=== PATIENT | female | born 1965 | race Caucasian/White ===

== ENCOUNTER 2022-10-18 14:24 | Emergency (ER) | payer SELFPAY ==
[~2022-10-18] VITALS: Ht 157.5 cm; Wt 90.9 kg
[2022-10-18] MEDS ORDERED: ONDANSETRON HCL 4 MG/2 ML VIAL IV ONE (14:45)
[2022-10-18] MEDS ORDERED: MORPHINE SULFATE 4 MG/ML SYR/VIAL IV ONE (14:45)
[2022-10-18] MEDS ORDERED: PANTOPRAZOLE 40 MG/10 ML VIAL INJ IV ONE (14:45)
[2022-10-18 15:39] VITALS: BP 169/130
[2022-10-18] MEDS: SODIUM CHLORIDE 0.9% 1,000 ML IVB ONE ×2 (16:04→19:05)
[2022-10-18 17:56] LABS: Urine Bacteria NONE SEEN /hpf (None Seen); Urine Blood Negative /uL (Negative); Urine Mucus FEW (None Seen); Urine Specific Gravity 1.027 (1.001-1.035); Urine WBC 4 /hpf (0 - 5)
[2022-10-18] MEDS ORDERED: ONDANSETRON ODT 4 MG TAB PO ONE (18:45)
[2022-10-18 19:10] LABS: Basophils # (auto) 0 10 ^3/uL (0-0.2); Basophils % (auto) 0.3 % (0.0-2.0); Eosinophils # (auto) 0 10 ^3/uL (0-0.8); Eosinophils % (auto) 0.1 % (0.0-7.0); Hematocrit 52.6 % (36.0-46.0); Hemoglobin 17.3 g/dL (12.2-16.2); Lymphocytes # (auto) 1.8 10 ^3/uL (0.4-5.4); Lymphocytes % (auto) 11.6 % (10.0-50.0); Mean Corpuscular Hemoglobin 28.8 pg (28.0-32.0); Mean Corpuscular Hgb Conc. 32.9 g/dL (32.0-36.0); Mean Corpuscular Volume 87.5 fL (80.0-100.0); Monocytes # (auto) 0.9 10 ^3/uL (0-1.3); Monocytes % (auto) 5.7 % (0.0-12.0); Neutrophils # (auto) 13.1 10 ^3/uL (1.6-8.6); Neutrophils % (auto) 82.3 % (37.0-80.0); Nucleated Red Blood Cells % 0.1 %; Red Blood Cells 6.02 10^6/uL (4.0-5.20); White Blood Cell 15.9 10^3/uL (4.4-10.8)
[2022-10-18 19:26] LABS: Anion Gap 8 (5-15); Calcium 9.5 mg/dL (8.5-10.1); Carbon Dioxide 28 mmol/L (21-32); Chloride 102 mmol/L (98-107); Glucose 138 mg/dL (74-106); Lipase 52 U/L (73-393); Potassium 3.8 mmol/L (3.5-5.1); Sodium 138 mmol/L (136-145)
[2022-10-18 19:32] LABS: Alanine Aminotransferase 39 U/L (13-56); Alkaline Phosphatase 101 U/L (45-117); Aspartate Aminotransferase 28 U/L (15-37); Bilirubin, Total 1.3 mg/dL (0.2-1.0); Blood Urea Nitrogen 10 mg/dL (7-18); GFR African American 99 mL/min; GFR Non-African American 82 mL/min; Total Protein 8.3 g/dL (6.4-8.2)
[2022-10-19] MEDS ORDERED: NITR-87 PO (01:15)
== END 2022-10-19 03:40 | disposition left against medical advice (07) ==
LOC: ER 14:24
DX: R10.84 Generalized abdominal pain (principal); K21.9 Gastro-esophageal reflux disease without esophagitis; F17.210 Nicotine dependence, cigarettes, uncomplicated; F12.90 Cannabis use, unspecified, uncomplicated; Z88.5 Allergy status to narcotic agent; Z88.2 Allergy status to sulfonamides; Z90.49 Acquired absence of other specified parts of digestive tract; Z98.890 Other specified postprocedural states
CPT/HCPCS: 36415; 74176; 80053; 81001; 83690; 96361; 96374; 96375; 99285; C9113; J2405; J7030; Q0162

== ENCOUNTER 2024-02-13 23:23 | Emergency (ER) | payer OTHER ==
[~2024-02-13] VITALS: Ht 157.5 cm; Wt 150.0 kg
[~2024-02-13 23:23] MED LIST: NITR-87 PO
[2024-02-13 23:32] VITALS: BP 151/111
[2024-02-14 00:53] VITALS: PULSE 79; RESP 11; O2SAT 94
[2024-02-14 01:13] LABS: Basophils # (auto) 0 10 ^3/uL (0-0.2); Basophils % (auto) 0.5 % (0.0-2.0); Eosinophils # (auto) 0.1 10 ^3/uL (0-0.8); Eosinophils % (auto) 0.8 % (0.0-7.0); Hematocrit 39.2 % (36.0-46.0); Hemoglobin 12.9 g/dL (12.2-16.2); Lymphocytes # (auto) 1.5 10 ^3/uL (0.4-5.4); Lymphocytes % (auto) 14.5 % (10.0-50.0); Mean Corpuscular Hemoglobin 27.3 pg (28.0-32.0); Mean Corpuscular Hgb Conc. 32.9 g/dL (32.0-36.0); Mean Corpuscular Volume 82.8 fL (80.0-100.0); Monocytes # (auto) 0.7 10 ^3/uL (0-1.3); Monocytes % (auto) 6.2 % (0.0-12.0); Neutrophils # (auto) 8.1 10 ^3/uL (1.6-8.6); Red Blood Cells 4.73 10^6/uL (4.0-5.20); Red Cell Distribution Width 14.3 % (11.8-14.3); White Blood Cell 10.4 10^3/uL (4.4-10.8)
[2024-02-14 01:23] LABS: Alanine Aminotransferase 13 U/L (7-40); Albumin 4.4 g/dL (3.2-4.8); Alkaline Phosphatase 87 U/L (46-116); Anion Gap 9 (5-15); Aspartate Aminotransferase 10 U/L (13-40); Blood Urea Nitrogen 9 mg/dL (9-23); Calcium 9.9 mg/dL (8.7-10.4); Carbon Dioxide 25 mmol/L (20-30); Chloride 105 mmol/L (98-107); Glucose 176 mg/dL (74-106); Lipase 31 U/L (12-53); Potassium 3.6 mmol/L (3.5-5.1); Sodium 139 mmol/L (136-145)
[2024-02-14 01:24] LABS: Bilirubin, Total 0.5 mg/dL (0.2-1.0); Total Protein 7.1 g/dL (5.7-8.2)
[2024-02-14] MEDS: LORazepam 2MG/ML-1ML VIAL IV ONE (01:49)
[2024-02-14] MEDS: LORazepam 2MG/ML-1ML VIAL IM ONE (02:04)
[2024-02-14] MEDS: KETOROLAC TROMETH 60MG/2ML VIAL IM ONE (02:15)
[2024-02-14 02:20] VITALS: PULSE 96
[2024-02-14] MEDS: MAALOX PLUS or MAALOX 30 ML PO ONE (03:47)
[2024-02-14] MEDS: LIDOCAINE VISCOUS 2% 15ML UD PO ONE (03:47)
[2024-02-14] MEDS: DONNATAL 5ml ORAL Elix (BELLADONNA ALK-PHENOBARB) PO ONE (03:47)
== END 2024-02-14 05:52 | disposition left against medical advice (07) ==
LOC: EDUNIT# 23:23 → ER 23:23 → EDBD 23:23 → ER 02-14 05:52
DX: R07.9 Chest pain, unspecified (principal); K21.9 Gastro-esophageal reflux disease without esophagitis; R10.9 Unspecified abdominal pain; R11.2 Nausea with vomiting, unspecified; R19.7 Diarrhea, unspecified; I10 Essential (primary) hypertension; F12.10 Cannabis abuse, uncomplicated; F15.10 Other stimulant abuse, uncomplicated; F17.210 Nicotine dependence, cigarettes, uncomplicated; Z90.49 Acquired absence of other specified parts of digestive tract; Z85.9 Personal history of malignant neoplasm, unspecified; Z88.6 Allergy status to analgesic agent
CPT/HCPCS: 36415; 80053; 83690; 83880; 84484; 85025; 93005; 96372; 99284; J1885; J2060

== ENCOUNTER 2024-08-29 05:09 | Inpatient (IN) | payer OTHER ==
[2024-08-29] VITALS (16 sets, daily range): BP systolic 125–157; BP diastolic 78–105; PULSE 74–122; RESP 16–29; TEMP 97.6–98.3; O2SAT 89–100
[~2024-08-29] VITALS: Ht 160 cm; Wt 89.5 kg
[2024-08-29] MEDS: MIDAZOLAM HCL 2MG/2ML 2ml VIAL (1mg/ml) ONE (05:51)
[2024-08-29] MEDS: fentaNYL CITRATE 100 MCG/2 ML VL ONE (05:51)
[2024-08-29] MEDS: ANGIOMAX 250 MG VIAL IV ONE (05:51)
[2024-08-29] MEDS: SODIUM CHL 0.9% 0 ML ONE (05:52)
[2024-08-29] MEDS: IODIXANOL 320MG/ML 100ML BTL IV ONE (05:52)
[2024-08-29] MEDS: LIDOCAINE 2%HCL (LOCAL ANESTH.) INJ 20ML MDV ONE (05:52)
[2024-08-29] MEDS ORDERED: SODIUM CHLORIDE 0.9% 1,000 ML IV ONE (06:00)
[2024-08-29] MEDS ORDERED: MORPHINE SULFATE INJ 2 MG/ml SYRG IV PRN (06:00)
[2024-08-29] MEDS: PIPERACILLIN-TAZOB 3.375GM 100 ML IV SCH (06:00)
[2024-08-29] MEDS ORDERED: ONDANSETRON HCL 4 MG/2 ML VIAL IV PRN (06:00)
--- NOTE | 2024-08-29 06:05 | DVH ---
CHEST RADIOGRAPH Indication: STEMI Technique: Single frontal view of the chest was obtained Comparison: None FINDINGS: Lines and Tubes: None Lungs: No focal consolidation. Pleura: No effusion. No pneumothorax. Cardiomediastinal contours: Unremarkable Bones: No acute osseous abnormality. IMPRESSION: 1. No acute cardiopulmonary disease.
[2024-08-29 06:08] LABS: Red Cell Distribution Width 14.4 % (11.8-14.3)
[2024-08-29 06:13] LABS: Hematocrit 49.1 % (36.0-46.0); Hemoglobin 16.7 g/dL (12.2-16.2); Mean Corpuscular Hemoglobin 28.5 pg (28.0-32.0); Mean Corpuscular Hgb Conc. 34.1 g/dL (32.0-36.0); Mean Corpuscular Volume 83.7 fL (80.0-100.0); Platelet Count (auto) 413 10^3/uL (140-450); Red Blood Cells 5.87 10^6/uL (4.0-5.20)
[2024-08-29 06:17] LABS: Alanine Aminotransferase 14 U/L (7-40); Alkaline Phosphatase 94 U/L (46-116); Calcium 9.2 mg/dL (8.7-10.4); Triglycerides 95 mg/dL (< 150)
[2024-08-29 06:18] LABS: Albumin 4.5 g/dL (3.2-4.8); Anion Gap 15 (5-15); BUN/Creatinine Ratio 22.7 (10.0-20.0); Cholesterol 153 mg/dL (< 200); LDL Cholesterol 67 mg/dL (< 100); Potassium 3.7 mmol/L (3.5-5.1); Total Protein 6.8 g/dL (5.7-8.2)
--- NOTE | 2024-08-29 06:21 | DVHHPRES ---
History of Present Illness Resident Creating Document: CAROLEBELLCONSTANCE RESIDENT History of Present Illness Person is 59-year-old female with past medical history of hypertension and diabetes mellitus type 2 transferred from [facility] for diagnosed STEMI evaluation and incarcerated umbilical hernia. Patient was transported via EMS, cardiology consultation was done. Patient has been taken to lab nurse for evaluation of coronary arteries given significant diffuse ST elevation and EKG. Patient was admitted to ICU for further care. Surgery consultation has been done for evaluation of incarcerated umbilical hernia. Medical record from [facility] [place] [address], CT abdomen pelvis showed a large left umbilical hernia defect containing loops of small bowel, findings suspicious for early or developing small bowel obstruction secondary to incarceration. Patient admitted started on antibiotics, IV fluid, NG tube with intermittent suction, laboratory has been pending. Patient will be admitted to ICU for further care. Expecting more than 2 days of hospitalization. Past Medical History Hypertension, diabetes mellitus type 2 Past Surgical History ?Exploratory abdominal/unknown surgery. Family History: None Past Social History Past social history not able to obtain given patient emergently transferred to lab nurse. Review of Systems Review of Systems Patient is seen and examined at the bedside Alert and oriented to time, place and person Patient was complaining of abdominal pain, SOB. Allergies: Coded Allergies: Sulfa Antibiotics (Verified Allergy, Severe, 10/18/22) Morphine (Verified Allergy, Unknown, 04/29/15) Uncoded Allergies: OPIODS (Allergy, Unknown, 04/29/15) Medications Current Medications Medications Dose Ordered Sig/Wayne Route Start Time Stop Time Status Last Admin Dose Admin Nitroglycerin 0.4 mg Q5MINP PRN SL 08/29/24 06:00 UNV Morphine Sulfate 2 mg Q30M PRN IV 08/29/24 06:00 UNV Piperacillin Sod/ Tazobactam Sod 100 ml @ 25 mls/hr Q8HR IV 08/29/24 06:00 UNV Ondansetron HCl 4 mg Q4HPRN PRN IV 08/29/24 06:00 UNV Pantoprazole Sodium 40 mg DAILY IV 08/29/24 10:00 UNV Exam Vital Signs Vital Signs Date Time Temp Pulse Resp B/P (MAP) Pulse Ox O2 Delivery O2 Flow Rate FiO2 08/29/24 05:17 98.6 115 24 137/97 (110) 98 Exam Physical Examination Patient was drowsy in bed with GCS 13 . Gen - no pallor, no icterus, no cyanosis, no clubbing, no LAD, no edema . Skin - Patients skin is warm and dry.. HEENT - normocephalic, atraumatic, dry mucous membranes. Neck - full ROM, no LAD, no JVD. Pulmonary - B/L vesicular breath sounds. no crackles , no wheezing, no stridor. cardiovascular - normal S1,S2 heard. no murmurs heard. peripheral pulses normal radial 2+, pedal 2+. capillary refill normal <2 secs. GI - soft abdomen with mild tenderness to palpation in the periumbilical region . no hepatospleenomegaly. bowel sounds hypoactive Neurological - Patient is A/O X 3 . Bilateral upper extremity strength 3/5, bilateral lower extremity strength 3/5, no facial droop, normal speech, no tremor, no sensory deficiets. Labs/Xrays Labs Test 08/29/24 05:30 Range/Units Assessment/Plan Assessment/Plan Assessment #Sepsis likely due to incarcerated umbilical hernia #STEMI versus acute pericarditis #Acute on chronic respiratory failure #Incarcerated umbilical hernia #JONG on CKD likely hemodynamically mediated #History of diabetes mellitus type 2 #History of hypertension Plan Oxygen via nasal cannula IV fluids at 100 mL/hour Zosyn 3.375 g q.8 hours IV Patient taken to lab nurse Echo pending Blood cultures pending NPO NG tube with intermittent suction Surgery consult Cardiology consult PUD prophylaxis: Pantoprazole 40 mg IV Patient has been transferred from [facility], for STEMI and catheter umbilical hernia. Patient sent to lab nurse for evaluation of coronary arteries. Stat surgical consultation has been done for umbilical hernia. Meanwhile patient will be started IV fluid, NG tube with intermittent suction, IV antibiotic, labs including blood cultures. Given patient's condition we are expecting patient's hospital stay gradually than 2 days. Goals of care discussed with the patient for over 23 minutes. Code status: Full code Plan discussed with Dr. Hawk Plan discussed with: Patient, Other (Dr. Quinteros) My Orders Orders - DAVION LAM RESIDENT Procedure Category Date Status Time Admit ADMIT 08/29/24 Transmitted 05:51 Nitroglycerin PHA 08/29/24 Logged Sublingual (Ntrostat 06:00 Morphine Sulfate PHA 08/29/24 Logged Injection 06:00 Oxygen By Nasal RT 08/29/24 Transmitted Cannula 05:51 Stat Ekg For Chest ROZ 08/29/24 In Process Pain 05:51 [employer] For ROZ 08/29/24 In Process 24 Hours 05:51 Notify Of Changes [facility] 08/29/24 In Process From Base 05:51 Rhythm Strips Once [facility] 08/29/24 In Process Every Shift 05:51 Npo (Nothing By DIET 08/29/24 Transmitted Mouth) Diet Breakfast Ng/Orogastric Tube To ROZ 08/29/24 In Process LIS 05:51 Blood Culture CHARLEEN 08/29/24 Logged 05:51 Urinalysis LAB 08/29/24 Logged 05:51 Drug Screen LAB 08/29/24 Logged 05:51 Covid19 Antigen Lena LAB 08/29/24 Logged Rapid Influenza A&B LAB 08/29/24 Logged 05:51 Sodium Chloride 0.9% PHA 08/29/24 Logged 06:00 Piperacillin-Tazob PHA 08/29/24 Logged 3.375gm (Zosyn 3.375g 06:00 Ondansetron Hcl PHA 08/29/24 Logged (Zofran) 06:00 Pantoprazole PHA 08/29/24 Logged (Protonix) 10:00 PTPTT LAB 08/29/24 Logged 05:51 * Surgical Consult CONS 08/29/24 Transmitted Echo 2d Mode Cardiac US 08/29/24 Logged DOP 05:58 Date of Service: Aug 29, 2024 Billing Provider: SELMA HAWK MD Common Visit Codes: [id number] INP/OBS CARE (HIGH) DAVION LAM RESIDENT Aug 29, 2024 06:21 SELMA HAWK MD Aug 29, 2024 21:05
[2024-08-29 06:31] LABS: Aspartate Aminotransferase 46 U/L (13-40); Bilirubin, Total 1.6 mg/dL (0.2-1.0); Blood Urea Nitrogen 42 mg/dL (9-23); Carbon Dioxide 17 mmol/L (20-31); Chloride 97 mmol/L (98-107); Glucose 268 mg/dL (74-106); HDL Cholesterol 66 mg/dL (40-59); Magnesium 1.6 mg/dL (1.6-2.6); Sodium 129 mmol/L (136-145)
[2024-08-29 06:36] LABS: INR 1.18 (0.9-1.15); Partial Thromboplastin Time 32.2 SEC (24.5-34.5); Prothrombin Time 12.4 sec (9.3-11.8)
--- NOTE | 2024-08-29 06:36 | ECG ---
[facility] Test Date: 2024-08-29 Test Time: 05:11:48 Pat Name: KAREEN MACKENZIE Department: er Room: Cath ICU Gender: F Director Of Infection Control: derick : 1965 Requested By: RSI SNEED Order Number: [id number] Reading MD: Aron Akers Measurements Intervals [place] Rate: 118 P: 84 AK: 154 QRS: 70 QRSD: 94 T: 53 QT: 296 QTc: 415 Interpretive Statements Sinus tachycardia Atrial premature complex Anterolateral infarct, acute (LAD) ST elevation, consider inferior injury Electronically Signed On 08-29-2024 10:31:18 PST by Aron Akers Please click the below link to view image of tracing.
[2024-08-29] MEDS: SODIUM CHLORIDE 0.9% 1,000 ML IV SCH (06:45)
[2024-08-29 06:47] LABS: White Blood Cell 31.6 10^3/uL (4.4-10.8)
[2024-08-29 06:49] LABS: Basophils % (manual) 0 (0.0-2.0); Blast Cells 0; Eosinophils % (manual) 0 (0-7); Metamyelocytes % 0; Myelocytes % 0; Promyelocytes % 0; Reactive Lymphocytes 0
[2024-08-29] MEDS: HYDROmorphone HCL 2 MG/ML VL/or syr ONE (07:16)
[2024-08-29 07:47] LABS: Band Neutrophils % (manual) 5; Lymphocytes % (manual) 7 (10.0-50.0); Monocytes % (manual) 4 (0-12); Platelet Estimate Adequate
[2024-08-29 08:53] LABS: Erythrocyte Sedimentation Rate 1 mm/hr (0-20)
[2024-08-29] MEDS: ENOXAPARIN SOD 30 MG/0.3 ML SYRINGE SC SCH (10:00)
--- NOTE | 2024-08-29 10:05 | DVHINCON2 ---
DATE OF CONSULTATION: 08/29/2024 HISTORY OF PRESENT ILLNESS: This is a 59-year-old lady who was admitted by Dr. Price at [facility] and the patient had been admitted because of umbilical incarcerated hernia. White cell count of 20,000. EKG over there revealed ST elevation in inferior leads and lateral leads, anteroseptal region and the patient has been transferred over here via ambulance urgently because of ST elevation on the EKG. The patient with a history of methamphetamine use. Dr. Rabago contacted. Dr. Rabago advised the Emergency Room to contact me, as the patient was located at [facility] and has been transferred here. PAST MEDICAL HISTORY: admitted at [facility] with admitting diagnosis of the abdominal pain and incarcerated hernia. PHYSICAL EXAMINATION: The patient is currently very weak and lethargic. Vital signs include heart rate of 105 and abdomen has been slightly distended, negative. Blood pressure 150/110. DIAGNOSES AND PLAN: * This patient has ST elevation noted diffusely and it could be acute pericarditis versus methamphetamine use coronary spasm. This patient is advised to go to hemodialysis lab technician, with risks and benefits all have been explained. * Incarcerated hernia and leukocytosis, so admitted over here. Advised to go to hemodialysis lab technician at this time. Edgar Quinteros MD MP/RIANNA/YEFRI TID: [id number] RECEIPT: [id number] MTDCatarino
--- NOTE | 2024-08-29 11:02 | DVHINCON2 ---
Date of service: Aug 29, 2024 Reason for Consultation incarcerated hernia History of Present Illness History Source: Patient, MD Notes Exam Limitations: No limitations HPI 59 year old patient was transferred from [facility] for STEMI and incarcerated umbilical hernia evaluation. Cardiology consult was completed and patient was taken to bolt labeler for evaluation of coronary arteries. Per chart medicl records from [facility] [place] [address], CT reports large left umbilical hernia defect containing loops of small bowel. Home Meds Active Scripts Nitrofurantoin Monohydrate Mac (Macrobid) 100 Mg Cap, 100 MG PO BID for 7 Days, #14 CAP Prov:NUVIA TRENT MD 10/19/22 Past Medical History Cardiac: HTN Pulmonary: No pertinent Hx Central Nervous System: No pertinent Hx GI: No pertinent Hx Hemotology/Oncology: No pertinent Hx Hepatobiliary: No pertinent Hx Psychiatric: No pertinent Hx Musculoskeletal: No pertinent Hx Rheumotologic: No pertinent Hx Infectious Disease: No peritnent Hx Endocrine: Other (diabetes mellitus type 2) Past Surgical History: Laparotomy Others exploratory laparotomy Smoker: No Hx (Negative) Alocohol: None Drugs: None Review of Systems Constitutional: No symptom reported Ears, Nose, & Throat: No symptom reported Eyes: No symptom reported Pulmonary/Respiratory: No symptom reported Cardiovascular: No symptom reported Gastrointestinal: No symptom reported Genitourinary: No symptom reported Musculoskeletal: No symptom reported Skin: No symptom reported Psychiatric: No symptom reported Endocrine: No symptom reported Hemotologic/Lymphatic: No symptom reported H&P Exam Vital Signs Vital Signs Date Time Temp Pulse Resp B/P (MAP) Pulse Ox O2 Delivery O2 Flow Rate FiO2 08/29/24 10:23 98.3 118 20 134/105 (115) 100 98.3 08/29/24 05:10 Nasal Cannula* 4 36 General Appeara: Well developed, Mild distress Head Exam: Normal inspection Neck Exam: Normal inspection Abdominal Exam: Soft Abdominal Pain Onset Location: Generalized abdomen Neuro/Mental St: Alert, Oriented Eye contact/ Speech: Cooperative, Good eye contact Thoughts/Psych: Normal thought pattern Skin Exam: Normal inspection Labs/Xrays Labs Test 08/29/24 10:00 08/29/24 05:30 Range/Units White Blood Count 31.6 *H 4.4-10.8 10^3/uL Red Blood Count 5.87 H 4.0-5.20 10^6/uL Hemoglobin 16.7 H 12.2-16.2 g/dL Hematocrit 49.1 H 36.0-46.0 % Mean Corpuscular Volume 83.7 80.0-100.0 fL Mean Corpuscular Hemoglobin 28.5 28.0-32.0 pg Mean Corpuscular Hemoglobin Concent 34.1 32.0-36.0 g/dL Red Cell Distribution Width 14.4 H 11.8-14.3 % Platelet Count 413 140-450 10^3/uL Mean Platelet Volume 8.4 6.9-10.8 fL Neutrophils (%) (Auto) 37.0-80.0 % Lymphocytes (%) (Auto) 10.0-50.0 % Monocytes (%) (Auto) 0.0-12.0 % Basophils (%) (Auto) 0.0-2.0 % Neutrophils # (Auto) 1.6-8.6 10 ^3/uL Lymphocytes # (Auto) 0.4-5.4 10 ^3/uL Monocytes # (Auto) 0-1.3 10 ^3/uL Differential Total Cells Counted 100.0 100 Neutrophils % (Manual) 84 H 37.0-80.0 Band Neutrophils % (Manual) 5 Lymphocytes % (Manual) 7 L 10.0-50.0 Monocytes % (Manual) 4 0-12 Eosinophils % (Manual) 0 0-7 Basophils % (Manual) 0 0.0-2.0 Metamyelocytes % (manual) 0 Myelocytes % (Manual) 0 Promyelocytes % (Manual) 0 Blast Cells % (Manual) 0 Reactive Lymphocytes 0 Platelet Estimate Adequate Erythrocyte Sedimentation Rate 1 0-20 mm/hr Prothrombin Time 12.4 H 9.3-11.8 sec Prothrombin Time INR 1.18 H 0.9-1.15 Activated Partial Thromboplast Time 32.2 24.5-34.5 SEC Sodium Level 129 L 136-145 mmol/L Potassium Level 3.7 3.5-5.1 mmol/L Chloride Level 97 L 98-107 mmol/L Carbon Dioxide Level 17 L 20-31 mmol/L Anion Gap 15 5-15 Blood Urea Nitrogen 42 H 9-23 mg/dL Creatinine 1.85 H 0.550-1.02 mg/dL Glomerular Filtration Rate Calc 31 >90 mL/min BUN/Creatinine Ratio 22.7 H 10.0-20.0 Serum Glucose 268 H 74-106 mg/dL Calcium Level 9.2 8.7-10.4 mg/dL Magnesium Level 1.6 1.6-2.6 mg/dL Total Bilirubin 1.6 H 0.2-1.0 mg/dL Aspartate Amino Transferase (AST) 46 H 13-40 U/L Alanine Aminotransferase (ALT) 14 7-40 U/L Alkaline Phosphatase 94 46-116 U/L Troponin I High Sensitivity 10525 *H </=34 ng/L C-Reactive Protein High Sensitivity 7.63 H <1.0 mg/dL Total Protein 6.8 5.7-8.2 g/dL Albumin 4.5 3.2-4.8 g/dL Triglycerides Level 95 < 150 mg/dL Cholesterol Level 153 < 200 mg/dL LDL Cholesterol 67 < 100 mg/dL HDL Cholesterol 66 H 40-59 mg/dL Thyroid Stimulating Hormone (TSH) 0.89 0.55-4.78 uIU/mL Assessment/Plan Plan patient seen in Cath labs denies any abdominal pain abdomen soft , patient has multiple hernias which are non tender denies nausea and vomiting, patient states she is passing gas and has had a bowel movement this morning patient refusing NGT, encouraged patient to let nurses attempt NG again patient remain NPO, Small bowel series pending Dr. Vciente agrees with plan Plan discussed with: Patient, Other Visit Coding Surgery Date of Service if different f: Aug 29, 2024 Billing Provider: RENATO VICENTE MD Surgery Visit Codes: 78617 - INP CONSULT <80 MIN GUILLERMO FREEMAN NP Aug 29, 2024 11:02
[2024-08-29 11:07] LABS: COVID19 ANTIGEN SOFIA FIA NEGATIVE (NEGATIVE)
[2024-08-29] MEDS: PANTOPRAZOLE 40 MG/10 ML VIAL INJ IV SCH (11:07)
[2024-08-29] MEDS: METOPROLOL TARTRATE 1MG/1ML-5ML VIAL IV SCH (11:08)
[2024-08-29 11:53] LABS: Rapid Influenza A Negative (Negative); Rapid Influenza B Negative (Negative)
[2024-08-29] MEDS ORDERED: METOPROLOL TARTRATE 1MG/1ML-5ML VIAL IV SCH (12:00)
--- NOTE | 2024-08-29 13:41 | DVHINCON2 ---
Date of service: Aug 29, 2024 Referring Physician Jesse Reason for Consultation STEMI History of Present Illness This is a 59-year-old lady who was admitted by Dr. Price at [facility] and the patient had been admitted because of umbilical incarcerated hernia. EKG over there revealed ST elevation in inferior leads and lateral leads, anteroseptal region and the patient has been transferred over h ere via ambulance urgently because of ST elevation on the EKG. The patient with a history of methamphetamine use. Dr. Rabago contacted. Dr. Rabago advised the Emergency Room to contact me, as the patient was located at [facility] and has been transferred here. WBC 31.6, NA 129, BUN 42, CORN HUSKER MACHINE OPERATOR 1.85, GLUC 268, AST 46, TROP [id number]. Chest x-ray shows NAD. Allergies: Coded Allergies: Sulfa Antibiotics (Verified Allergy, Severe, 10/18/22) Morphine (Verified Allergy, Unknown, 04/29/15) Uncoded Allergies: OPIODS (Allergy, Unknown, 04/29/15) Home Meds Active Scripts Nitrofurantoin Monohydrate Mac (Macrobid) 100 Mg Cap, 100 MG PO BID for 7 Days, #14 CAP Prov:NUVIA TRENT MD 10/19/22 Current Medications Current Medications Medications (Trade) Dose Ordered Sig/Wayne Route PRN Reason Start Time Stop Time Status Last Admin Nitroglycerin (Ntrostat Sublingual) 0.4 mg Q5MINP PRN SL FOR CHEST PAIN 08/29/24 06:00 Morphine Sulfate 2 mg Q30M PRN IV FOR CHEST PAIN 08/29/24 06:00 Piperacillin Sod/ Tazobactam Sod 100 ml @ 25 mls/hr Q8HR IV 08/29/24 06:00 08/29/24 06:00 Ondansetron HCl (Zofran) 4 mg Q4HPRN PRN IV NAUSEA / VOMITING 08/29/24 06:00 Pantoprazole Sodium (Protonix) 40 mg DAILY IV 08/29/24 10:00 08/29/24 11:07 Metoprolol Tartrate (Lopressor) 2.5 mg Q6HR IV 08/29/24 12:00 08/29/24 11:08 Metoprolol Tartrate (Lopressor) 2.5 mg Q6HR IV 08/29/24 12:00 UNV Sodium Chloride 1,000 ml @ 75 mls/hr [id number] IV 08/29/24 06:45 08/29/24 06:45 Enoxaparin Sodium (Lovenox) 30 mg DAILY SC 08/29/24 10:00 Hydromorphone HCl (Dilaudid Injection) 1 mg Q3HPRN PRN IV SEVERE PAIN (7-10 PAIN SCALE) 08/29/24 07:00 Review of Systems Constitutional: No symptom reported Ears, Nose, & Throat: No symptom reported Eyes: No symptom reported Pulmonary/Respiratory: No symptom reported Cardiovascular: No symptom reported Gastrointestinal: No symptom reported Genitourinary: No symptom reported Musculoskeletal: No symptom reported Skin: No symptom reported Psychiatric: No symptom reported Endocrine: No symptom reported Hemotologic/Lymphatic: No symptom reported Vital Signs Vital Signs Date Time Temp Pulse Resp B/P (MAP) Pulse Ox O2 Delivery O2 Flow Rate FiO2 08/29/24 11:08 120 134/105 08/29/24 10:23 98.3 20 100 98.3 08/29/24 05:10 Nasal Cannula* 4 36 Physical Exam GENERAL: Awake, alert, oriented. Weak and lethargic appearing. LUNGS: Clear. CARDIOVASCULAR: Tachycardia. ABDOMEN: Soft. Slight distention noted. Labs/Diagnostic Data Labs Test 08/29/24 10:00 08/29/24 05:30 Range/Units SARS-CoV-2 Antigen (Rapid) Negative NEGATIVE White Blood Count 31.6 *H 4.4-10.8 10^3/uL Red Blood Count 5.87 H 4.0-5.20 10^6/uL Hemoglobin 16.7 H 12.2-16.2 g/dL Hematocrit 49.1 H 36.0-46.0 % Mean Corpuscular Volume 83.7 80.0-100.0 fL Mean Corpuscular Hemoglobin 28.5 28.0-32.0 pg Mean Corpuscular Hemoglobin Concent 34.1 32.0-36.0 g/dL Red Cell Distribution Width 14.4 H 11.8-14.3 % Platelet Count 413 140-450 10^3/uL Mean Platelet Volume 8.4 6.9-10.8 fL Neutrophils (%) (Auto) 37.0-80.0 % Lymphocytes (%) (Auto) 10.0-50.0 % Monocytes (%) (Auto) 0.0-12.0 % Basophils (%) (Auto) 0.0-2.0 % Neutrophils # (Auto) 1.6-8.6 10 ^3/uL Lymphocytes # (Auto) 0.4-5.4 10 ^3/uL Monocytes # (Auto) 0-1.3 10 ^3/uL Differential Total Cells Counted 100.0 100 Neutrophils % (Manual) 84 H 37.0-80.0 Band Neutrophils % (Manual) 5 Lymphocytes % (Manual) 7 L 10.0-50.0 Monocytes % (Manual) 4 0-12 Eosinophils % (Manual) 0 0-7 Basophils % (Manual) 0 0.0-2.0 Metamyelocytes % (manual) 0 Myelocytes % (Manual) 0 Promyelocytes % (Manual) 0 Blast Cells % (Manual) 0 Reactive Lymphocytes 0 Platelet Estimate Adequate Erythrocyte Sedimentation Rate 1 0-20 mm/hr Prothrombin Time 12.4 H 9.3-11.8 sec Prothrombin Time INR 1.18 H 0.9-1.15 Activated Partial Thromboplast Time 32.2 24.5-34.5 SEC Sodium Level 129 L 136-145 mmol/L Potassium Level 3.7 3.5-5.1 mmol/L Chloride Level 97 L 98-107 mmol/L Carbon Dioxide Level 17 L 20-31 mmol/L Anion Gap 15 5-15 Blood Urea Nitrogen 42 H 9-23 mg/dL Creatinine 1.85 H 0.550-1.02 mg/dL Glomerular Filtration Rate Calc 31 >90 mL/min BUN/Creatinine Ratio 22.7 H 10.0-20.0 Serum Glucose 268 H 74-106 mg/dL Calcium Level 9.2 8.7-10.4 mg/dL Magnesium Level 1.6 1.6-2.6 mg/dL Total Bilirubin 1.6 H 0.2-1.0 mg/dL Aspartate Amino Transferase (AST) 46 H 13-40 U/L Alanine Aminotransferase (ALT) 14 7-40 U/L Alkaline Phosphatase 94 46-116 U/L Troponin I High Sensitivity 78115 *H </=34 ng/L C-Reactive Protein High Sensitivity 7.63 H <1.0 mg/dL Total Protein 6.8 5.7-8.2 g/dL Albumin 4.5 3.2-4.8 g/dL Triglycerides Level 95 < 150 mg/dL Cholesterol Level 153 < 200 mg/dL LDL Cholesterol 67 < 100 mg/dL HDL Cholesterol 66 H 40-59 mg/dL Thyroid Stimulating Hormone (TSH) 0.89 0.55-4.78 uIU/mL Assessment Acute ST elevation. Acute pericarditis versus methamphetamine use coronary spasm. Incarcerated hernia. Leukocytosis Plan/Recommendation I agree with your ongoing assessment and care of plan. This patient is advised to go to bottle labeler. Risks and benefits all have been explained. Echocardiogram. DVT and GI prophylactics. Metoprolol. Morphine for pain management. IV antibiotics as ordered. Additional plan as per the hospital course. Critical care time of 90 minutes provided to include time spent evaluation of patient at bedside, when appropriate patient/family education for diagnosis, treatment plan, review of pertinent medical information and discussion of care with specialty providers and PCP. Plan discussed with: Patient SRI SNEED MD Aug 29, 2024 11:30
[2024-08-29] MEDS: HYDROmorphone HCL 2 MG/ML VL/or syr IV PRN (13:47)
--- NOTE | 2024-08-29 14:04 | DVHPNRES ---
Progress Note Date Seen: Aug 29, 2024 Resident Creating Document: JAYMIE RODRIGUEZ RESIDENT Medical Necessity Reason Pt with a Central, PICC or Fol: Yes The following are medically ne: Randle Catheter Subjective Review of Systems This is a 59-year-old female with past medical history of hypertension and diabetes mellitus type 2 transferred from [facility] for diagnosed STEMI evaluation and incarcerated umbilical hernia. Patient was transported via EMS, cardiology consultation was done. Patient has been taken to recyclable materials sorter for evaluation of coronary arteries given significant diffuse ST elevation and EKG. Patient was admitted to ICU for further care. Surgery consultation has been done for evaluation of incarcerated umbilical hernia. Medical record [place] [facility] [place] [address], CT abdomen pelvis showed a large left umbilical hernia defect containing loops of small bowel, findings suspicious for early or developing small bowel obstruction secondary to incarceration. Patient admitted started on antibiotics, IV fluid, NG tube with intermittent suction, laboratory has been pending. Patient will be admitted to ICU for further care. Expecting more than 2 days of hospitalization. Past medical history: Hypertension, diabetes mellitus type 2 Patient seen and examined at bedside. Underwent catheterization today, normal coronary arteries. Bowel sounds present. Gastrografin study completed. Patient had 2 bowel movements following Gastrografin. Gastrografin shows contrast is identified within the colon by 6. Started clear liquid diet. Patient transferred to telemetry unit. Objective vital signs Vital Sign Date Time Temp Pulse Resp B/P (MAP) Pulse Ox O2 Delivery O2 Flow Rate FiO2 08/29/24 13:47 116 18 153/103 08/29/24 12:23 100 08/29/24 10:23 98.3 98.3 08/29/24 05:10 Nasal Cannula* 4 36 medications Current Medications Medications Dose Ordered Sig/Wayne Route Start Time Stop Time Status Last Admin Dose Admin Nitroglycerin 0.4 mg Q5MINP PRN SL 08/29/24 06:00 Morphine Sulfate 2 mg Q30M PRN IV 08/29/24 06:00 Piperacillin Sod/ Tazobactam Sod 100 ml @ 25 mls/hr Q8HR IV 08/29/24 06:00 08/29/24 06:00 25 MLS/HR Ondansetron HCl 4 mg Q4HPRN PRN IV 08/29/24 06:00 Pantoprazole Sodium 40 mg DAILY IV 08/29/24 10:00 08/29/24 11:07 40 MG Metoprolol Tartrate 2.5 mg Q6HR IV 08/29/24 12:00 08/29/24 11:08 2.5 MG Metoprolol Tartrate 2.5 mg Q6HR IV 08/29/24 12:00 UNV Sodium Chloride 1,000 ml @ 75 mls/hr [id number] IV 08/29/24 06:45 08/29/24 06:45 75 MLS/HR Enoxaparin Sodium 30 mg DAILY SC 08/29/24 10:00 Hydromorphone HCl 1 mg Q3HPRN PRN IV 08/29/24 07:00 08/29/24 13:47 1 MG Examination Patient lying in bed, in no acute distress General: Afebrile, palor, mucosae are moist Cardiovascular: Regular S1 and S2. No murmurs, gallops or rubs. No JVD elevation. No pedal edema Respiratory: Normal B/L air entry on room air. Clear lung sounds on auscultation Abdomen: Soft, mildly tender. distended, normoactive bowel sounds, no rebound tenderness, no organomegaly, no masses Genitourinary: Deferred MSK/skin: Mobilizes 4 limbs. Skin is dry and warm Neurological: No motor, no sensitive deficits, normal speech. Pupils are isocoric and reactive. Psych/Mental Status: A/Ox3 laboratory and microbiology Laboratory Tests 08/29/24 05:30 Test 08/29/24 05:30 Range/Units Serum Glucose 268 H 74-106 mg/dL Labs and/or images reviewed: Labs reviewed by me, Image(s) reviewed by me Problem List/Assessment/Plan Problem List/Assessment/Plan Sepsis likely due to incarcerated umbilical hernia Surgeon consulted-ordered Gastrografin study Patient had 2 bowel movements following Gastrografin. Gastrografin shows contrast is identified within the colon by 6. Started clear liquid diet. Zosyn 3.375 g q.8 hours IV STEMI status post PCI 08/29 STEMI secondary to Takotsubo syndrome vs acute pericarditis versus meth induced coronary vasospasm Acute on chronic decompensated systolic congestive heart failure exacerbation Hypertension Patient underwent PCI 08/[address] Quinteros -started IV metoprolol. PCI showed anterior wall, apical wall and apical inferior wall have become remarkably hypokinetic and dilated. Coronary arteries are all widely open. No stenosis, no spasm, no dissection and no thrombus. Echo completed shows LVEF 28%. Remarkable hypokinesis of anterior wall of LV including IV NS, apex and anterolateral wall. DC NS Acute on chronic respiratory failure Currently on 2 L NC supplementation JONG likely VMN on CKD Received IV fluid Hypokalemia, hypomagnesemia, supplemented Type 2 diabetes mellitus-hemoglobin A1c pending On moderate ISS PUD prophylaxis: Pantoprazole 40 mg IV. DVT prophylaxis: On hold Case discussed with Dr. Caldwell. Started clear liquid diet 9:00 p.m.. Plan discussed with patient in which all questions have been answered. Plan discussed with: Patient My Orders My Orders Orders - JAYMIE RODRIGUEZ RESIDENT Procedure Category Date Status Time Transfer Orders XFER 08/29/24 Transmitted 14:02 Glucose Blood PHA 08/29/24 Transmitted (Accu-Chek Comfort 16:00 Moderate Insulin Ss PHA 08/29/24 Transmitted 16:00 Dextrose 50% Syringe PHA 08/29/24 Transmitted 14:15 Urinalysis LAB 08/29/24 Verified 14:03 Date of Service: Aug 29, 2024 Billing Provider: STARR CALDWELL MD Common Visit Codes: [id number] INP/OBS CARE(HIGH) JAYMIE RODRIGUEZ Aug 29, 2024 14:04 STARR CALDWELL MD Aug 30, 2024 00:11
--- NOTE | 2024-08-29 17:25 | DVH ---
Procedure: XY SMALL BOWEL SERIES-W GASTROGRA Reason for study/Clinical History: Small Bowel obstruction Comparison Study: None available at time of dictation. Technique: Single contrast small bowel series performed. FINDINGS/IMPRESSION: Initial cancer program consultant view of the abdomen and pelvis appears demonstrates no acute process. Contrast is identified within the colon by 6. This represents a delayed appearance of the left colon .
[2024-08-29] MEDS: InsuLIN REG 1unit/0.01ml Soln (100units/ml) SC SCH (17:31)
[2024-08-29] MEDS: ACCU-CHEK COMFORT CURVE STRIP VI SCH (17:42)
[2024-08-29] MEDS: GASTROGRAFIN 120 ML SOL ONE ×2 (18:33→18:34)
--- NOTE | 2024-08-29 19:39 | DVHSR ---
APPROVED REPORT EXAM: Two-dimensional and M-mode echocardiogram with Doppler and color Doppler. Blood Pressure: 152/91 mmHg INDICATION STEMI RISK FACTORS Height: 5'5", Weight: 145 DIMENSIONS LVDd3.7 (3.8-5.7cm)LA (2D)3.1 (1.9-4.0cm)Aortic Root (2.0-3.7cm) LVDs3.2 (2.5-4.0cm)LA (MM) (1.9-4.0cm)Aortic Cusp Exc (1.5-2.0cm) EF (%) 28.0 (55-70%)Rt. Atrium2.6 (1.9-4.0cm)Asc. Aorta cm Mitral Valve MitralMitral Stenosis E/A ratio0.02D MVAcm2 Aortic Valve Aortic ValveAortic Stenosis V11.84m/Martinez Mean GR.12mmHg V22.12m/Martinez Peak GR.18mmHg LVOT Diameter2.0 (1.8-2.4cm)Doppler AVA2.73cm2 Other Information Quality : Technically LimitedRhythm : Technically limited study due to patient position. Conclusion REMARKABLE HYPOKINESIS OF ENTIRE ANTERIOR WALL OF LV, INCLUDING IVS,APEX AND ANTEROLATERAL WALL LV EJECTION FRACTION IS ONLY 28% NORMAL VALVES NO EFFUSION
--- NOTE | 2024-08-29 20:48 | DVHOP ---
DATE OF SURGERY: 08/29/2024 DATE OF STUDY PERFORMED: 08/29/2024 at approximately 6:00 in the morning. TECHNIQUE PERFORMED: * Code STEMI. * Insertion of a 6-[place] arterial line in right femoral artery under fluoroscopic guidance. * Management of conscious sedation. * Left heart catheterization. * Left ventriculogram. * Atka selective left and right coronary angiography. * Right iliofemoral artery angiography. * Angio-Seal of the right femoral artery. COMPLICATIONS: None. ASSISTANTS: Assisted by our staff over here including Mart. INDICATIONS: The patient is being transferred from [facility]. The patient had a huge ST elevation noted into the inferior leads and anteroseptal leads. DESCRIPTION OF PROCEDURE: Risks, benefits discussed. Informed consent obtained in a standard manner. The patient was urgently brought over here and the patient's right groin was shaved, was cleaned with soap and Betadine. Intravenous sedation was given the right femoral artery was punctured under fluoroscopy. A 6-[place]an arterial line was placed in a standard manner. We have put a JL4 catheter and left coronary angio done. With the help of JL4 catheter, the right coronary angiography was performed with the help of pigtail catheter complete left heart cath has been done. The left ventriculogram was done utilizing oblique view with total of 30 mL of dye. Post-LV gram, left ventricular angiography performed with the help of pull-through technique. Aortic pressure was also performed. J-wire was passed. Pigtail catheter also had been discontinued. Procedure completed. IMPRESSION: * Normal left main. * The left main divided into left anterior descending artery and large dominant circumflex artery. Left anterior descending artery is also very huge, large and tortuous artery widely open. Diagonal artery normal. * The circumflex artery is a large luminal artery and widely open. The right coronary artery is a dominant artery and is open. * The left ventriculogram revealed ejection fraction in the range of about 30%. The whole anterior wall, apical wall, apical inferior wall has become remarkably hypokinetic. The was normal. Posterior wall is normal. CONCLUSION: * This patient has got Takotsubo syndrome. The patient has the whole anterior wall, apical wall and apical inferior wall have become remarkably hypokinetic and dilated. * The coronary arteries are all widely open. No stenosis, no spasm, no dissection and no thrombus. * Circumflex artery is a large luminal artery. PLAN OF ACTION: At this time, patient is going to be admitted to the stepdown ICU. Keep n.p.o., IV fluids. Discussion done with the in-house resident physician and advised for IV antibiotic and get a surgical consultation for incarcerated hernia. Edgar Quinteros MD MP/QUINCY/CARMINE TID: [id number] RECEIPT: [id number] [facility]AK[facility] HEALTH SYSTEMCatarino
[2024-08-29] MEDS: MAGNESIUM SULFATE 1GM/100ML 100 ML IV ONE (22:47)
[2024-08-29] MEDS: POTASSIUM CHL 20MEQ/100ML 100 ML IV ONE (22:47)
[2024-08-30] VITALS (108 sets, daily range): BP systolic 58–156; BP diastolic 29–110; PULSE 97–137; RESP 16–34; TEMP 97.6–100.2; O2SAT 92–100
[2024-08-30] MEDS: NITROGLYCERIN 0.4 MG SL TAB SL PRN (04:22)
[2024-08-30] MEDS: NALOXONE HCL 0.4 MG/ML VIAL ONE (10:00)
[2024-08-30] MEDS: ETOMIDATE (2MG/ML) 20ML VIAL IV ONE ×2 (10:08→11:16)
[2024-08-30] MEDS: ROCURONIUM 10MG/ML 10ML VIAL IV ONE (10:08)
[2024-08-30] MEDS: NOREPINEPHRINE 8 MG/250ML KIT 250 ML IV ONE (10:10)
--- NOTE | 2024-08-30 10:46 | DVH ---
CHEST RADIOGRAPH Indication: placement Technique: Single frontal view of the chest was obtained Comparison: XY CHEST PORTABLE on DOS: 08/29/24 FINDINGS: Lines and Tubes: NG tube in stomach. ET tube 1cm from kendra. Retract by 3cm. Right CVC in SVC Lungs: No focal consolidation. Pleura: No effusion. No pneumothorax. Cardiomediastinal contours: Unremarkable Bones: No acute osseous abnormality. IMPRESSION: Retract endotracheal tube by 3 cm.
--- NOTE | 2024-08-30 10:47 | DVHPN2 ---
Reviewed: Care Plan, H&P, Labs, Medications, Previous Orders, Radiology Changes from previous H/P or p: No Changes Objective Vitals Vital Signs Date Time Temp Pulse Resp B/P (MAP) Pulse Ox O2 Delivery O2 Flow Rate FiO2 08/30/24 09:00 97.9 98 22 95/69 (78) 98 97.9 08/30/24 08:00 Room Air* 0 21 Intake/Output Intake and Output 08/30/24 07:00 Intake Total 1075 ml Balance 1075 ml Intake Oral 225 ml IV Total 850 ml # Voids 6 # Bowel Movements 7 Medications Current Medications Medications Dose Ordered Sig/Wayne Route Start Time Stop Time Status Last Admin Dose Admin Nitroglycerin 0.4 mg Q5MINP PRN SL 08/29/24 06:00 08/30/24 04:34 0.4 MG Morphine Sulfate 2 mg Q30M PRN IV 08/29/24 06:00 Piperacillin Sod/ Tazobactam Sod 100 ml @ 25 mls/hr Q8HR IV 08/29/24 06:00 08/30/24 06:06 25 MLS/HR Ondansetron HCl 4 mg Q4HPRN PRN IV 08/29/24 06:00 Pantoprazole Sodium 40 mg DAILY IV 08/29/24 10:00 08/29/24 11:07 40 MG Metoprolol Tartrate 2.5 mg Q6HR IV 08/29/24 12:00 08/30/24 00:40 2.5 MG Metoprolol Tartrate 2.5 mg Q6HR IV 08/29/24 12:00 UNV Enoxaparin Sodium 30 mg DAILY SC 08/29/24 10:00 Hydromorphone HCl 1 mg Q3HPRN PRN IV 08/29/24 07:00 08/30/24 08:11 1 MG Diagnostic Test (Pha) 1 strip IQ4HR 08/29/24 16:00 08/30/24 08:15 1 STRIP Insulin Human Regular IQ4HR SC 08/29/24 16:00 08/30/24 08:22 6 UNITS Dextrose 50 ml UD PRN IV 08/29/24 14:15 Laboratory Results Laboratory Tests 08/29/24 05:30 Microbiology Microbiology Date/Time Source Procedure Growth Status 08/29/24 08:03 Blood Blood Culture - Preliminary NO GROWTH AFTER 24 HOURS OF INCUBATION. Resulted Labs and/or images reviewed: Labs reviewed by me, Image(s) reviewed by me Assessment/Plan Assessment/Plan Acute hypoxic respiratory failure status post intubated on the floor by ER physician Possible overdose on narcotics: Patient probably overdosed on [place] and Ativan in the bathroom and coded around 10 AM on 08/30/2024 2 dose of Narcan mg each was given IV and patient came back to consciousness, patient has full bag of narcotics and Ativan with her at the bedside Septic shock possibly secondary to [place] a [place] [address]: Blood cultures ordered, on Zosyn, surgical consult appreciated [place] [address]: Seen by loop machine operator Dr. Quinteros Type 2 diabetes Hypertension Cardiomyopathy with ejection fraction 28 percent possibly secondary to drug abuse Time Spent 70 minutes Advanced care planning time 20 minutes Patient is full code GI prophylaxis: Pantoprazole DVT prophylaxis SCDs Plan discussed with: Patient My Orders Orders - JAYLEEN WATSON MD Procedure Category Date Status Time Chest Portable XY 08/30/24 Taken 10:[address] 08/30/24 Logged 10:32 Insert/Manage Urinary ROZ 08/30/24 In Process Catheter 10:38 Date of Service: Aug 30, 2024 Billing Provider: JAYLEEN WATSON MD Common Visit Codes: [id number] CARE 30-74 MIN, [id number] CARE-EACH +30MIN JAYLEEN WATSON MD Aug 30, 2024 10:47
--- NOTE | 2024-08-30 10:49 | DVHNC2 ---
Intubation Indication: Respiratory Insufficiency, Altered Mental Status, Airway Protection Prep: Preoxygenation (AMBU BAG) Medicated with: Other (ETOMIDATE AND ROCURONIUM) Intubation Approach: Orotracheal Intubation size: cm (8) Notes PROCEDURE SUMMARY: A time out was performed. The patient was placed on a marketing manager health communications including continuous pulse oximetry. The patient received Etomidate and rocuronium for induction. Cricoid pressure was maintained from time induction agent was given to time of cuff balloon inflation. Using a MAC 4 and a size 8.0 endotracheal tube with stylet, the patient was intubated on the 1 attempt. The stylet was removed and cuff balloon was inflated. Appropriate endotracheal tube position was confirmed by direct visualization of vocal cord passage, fogging of the tube, CO2 colorimetric indicator and symmetric breath sounds. The tube was secured at 24 cm at the lips. Lauro Eli Prabhakar MD Date of Service: Aug 30, 2024 Billing Provider: LAURO ELI Common Visit Codes: PROCEDURE ONLY Procedure Codes: [id number] LAURO ELI Aug 30, 2024 10:49 JOSEP ALVAREZ MD Aug 30, 2024 22:05
[2024-08-30 10:52] LABS: Basophils # (auto) 0 10 ^3/uL (0-0.2); Basophils % (auto) 0.1 % (0.0-2.0); Eosinophils # (auto) 0 10 ^3/uL (0-0.8); Hematocrit 47.3 % (36.0-46.0); Hemoglobin 14.1 g/dL (12.2-16.2); Lymphocytes # (auto) 2.7 10 ^3/uL (0.4-5.4); Lymphocytes % (auto) 11.6 % (10.0-50.0); Mean Corpuscular Hgb Conc. 29.9 g/dL (32.0-36.0); Mean Corpuscular Volume 93.4 fL (80.0-100.0); Monocytes # (auto) 2.4 10 ^3/uL (0-1.3); Monocytes % (auto) 10.3 % (0.0-12.0); Neutrophils # (auto) 18.2 10 ^3/uL (1.6-8.6); Platelet Count (auto) 386 10^3/uL (140-450); Red Blood Cells 5.06 10^6/uL (4.0-5.20); Red Cell Distribution Width 15.3 % (11.8-14.3); White Blood Cell 23.4 10^3/uL (4.4-10.8)
[2024-08-30 11:10] LABS: Alkaline Phosphatase 64 U/L (46-116); Anion Gap 28 (5-15); BUN/Creatinine Ratio 19.8 (10.0-20.0); Calcium 9.6 mg/dL (8.7-10.4); Potassium 3.8 mmol/L (3.5-5.1)
[2024-08-30 11:11] LABS: Bilirubin, Total 0.7 mg/dL (0.2-1.0)
[2024-08-30] MEDS: PHENYLEPHRINE IV 250 ML IV ONE (11:17)
[2024-08-30] MEDS: SUCCINYLCHOLINE CHLORIDE 20 MG/ML 10ML VIAL IV ONE (11:18)
[2024-08-30] MEDS: MIDAZOLAM DRIP 50 mg/50mL 50 ML IV ONE (11:18)
[2024-08-30] MEDS: fentaNYL Drip 2500mCg/250mlNS 0 ML IV ONE (11:20)
[2024-08-30 11:21] LABS: Alanine Aminotransferase 45 U/L (7-40); Albumin 3.2 g/dL (3.2-4.8); Aspartate Aminotransferase 100 U/L (13-40); Blood Urea Nitrogen 48 mg/dL (9-23); Carbon Dioxide 10 mmol/L (20-31); Chloride 96 mmol/L (98-107); Glucose 227 mg/dL (74-106); Magnesium 2.8 mg/dL (1.6-2.6); Sodium 134 mmol/L (136-145); Total Protein 5.1 g/dL (5.7-8.2)
[2024-08-30 11:31] LABS: INR 1.52 (0.9-1.15); Partial Thromboplastin Time 41.6 SEC (24.5-34.5); Prothrombin Time 15.6 sec (9.3-11.8)
[2024-08-30] MEDS: PHENYLEPHRINE IV 250 ML IV SCH (11:52)
[2024-08-30] MEDS: fentaNYL Drip 2500mCg/250mlNS 250 ML IV SCH (11:53)
[2024-08-30] MEDS: MIDAZOLAM DRIP 50 mg/50mL 50 ML IV SCH (11:53)
--- NOTE | 2024-08-30 12:09 | DVHINCON2 ---
Date of service: Aug 30, [address] Marie Reason for Consultation Constricted pupils after code blue History of Present Illness Ms. Simms is a 59 years old female with a history of hypertension, diabetes, the patient was transferred from the [facility] on 08/29/2024 for diagnosed STEMI and increased umbilical herniation, at this time, the patient is intubated, nonresponsive to her surroundings, the history is obtained from her nurse, and other medical staff, I have also reviewed the chart Earlier this morning, the patient was found in the bathroom, not able to talk, with altered mental status, witnessed remains, the pinprick nonresponsive, but she woke up right after Narcan was giving, but the patient remains mentally altered, and was agitated, and the patient was intubated for airway protection, in her personal bag, Ativan and [place] were found Her pupils were all with dilated, nonreactive treated before and after this event Per my observation, her pupils are dilated, fixed, left bigger WBC/HB/PLT/MCV, 08/30/2024: 23.4/14.1/386/93.4 PT/INR/PTT, 08/30/2024: 15.6/1.52/41.5 D-dimer, 08/30/2024: 17.76 BUN/CR, 08/30/2024: 48/2.43 HCO3, 08/29/2024: 17, 08/30/2024: 10 HGB A1c, 08/30/2024: 507 Troponin one high sensitivity, 08/29/2024: 98234, 08/30/2024: > 07901 TBI/AST/ALT/AP, 08/30/2024: 0.7/100/54/64 TG/HDL/LDL/HDL, 08/29/2024: 95/153/67/66 TSH, 08/29/2024: 0.89 CT head, 08/30/2024: Retract endotracheal tube by 3 cm. Past Medical History Hypertension, diabetes Past Surgical History Abdominal surgery Family History: Patient reports no known family medical history. Family History Unobtainable Social History Unobtainable Allergies: Coded Allergies: Sulfa Antibiotics (Verified Allergy, Severe, 10/18/22) Morphine (Verified Allergy, Unknown, 04/29/15) Uncoded Allergies: OPIODS (Allergy, Unknown, 04/29/15) Home Meds Active Scripts Nitrofurantoin Monohydrate Mac (Macrobid) 100 Mg Cap, 100 MG PO BID for 7 Days, #14 CAP Prov:NUVIA TRENT MD 10/19/22 Current Medications Current Medications Medications (Trade) Dose Ordered Sig/Wayne Route PRN Reason Start Time Stop Time Status Last Admin Metoprolol Tartrate (Lopressor) 2.5 mg Q6HR IV 08/29/24 12:00 08/30/24 00:40 Metoprolol Tartrate (Lopressor) 2.5 mg Q6HR IV 08/29/24 12:00 UNV Diagnostic Test (Pha) (Accu-Chek Comfort Curve T) 1 strip IQ4HR 08/29/24 16:00 08/30/24 08:15 Insulin Human Regular (InsuLIN R) IQ4HR SC 08/29/24 16:00 08/30/24 08:22 Dextrose 50 ml UD PRN IV Blood Sugar LESS THAN 60 08/29/24 14:15 Norepinephrine Bitartrate 250 ml @ 3.75 mls/hr Q24H IV 08/30/24 11:00 Phenylephrine HCl 250 ml @ 30 mls/hr Q8H20M IV 08/30/24 11:00 Midazolam HCl 50 ml @ 1 mls/hr Q24H IV 08/30/24 11:00 Fentanyl Citrate 250 ml @ 2.5 mls/hr Q24H IV 08/30/24 11:00 Review of Systems Unobtainable Vital Signs Vital Signs Date Time Temp Pulse Resp B/P (MAP) Pulse Ox O2 Delivery O2 Flow Rate FiO2 08/30/24 10:20 97 20 86/73 (77) 100 08/30/24 09:00 97.9 98 97.9 08/30/24 08:00 Room Air* 0 Physical Exam The patient is well-nourished and well-developed with no distress. The patient is intubated HEENT: Normocephalic, neck supple, no carotid bruits Lungs: Clear to auscultation Cardiovascular: Regular rate and region, S1, S2, no murmurs Abdomen: Soft, nontender, normal bowel sounds MENTAL STATUS: Not responsive to strong painful stimuli CRANIAL NERVES: Pupils are dilated and fixed, left-sided bigger,.There are no corneal reflexes and questionable doll's eyes phenomenon. No signs of facial weakness. There are no gagging or coughing reflexes SENSATION: No responses to pain stimuli. MOTOR: Normal tone in the upper and lower extremity. Normal muscle bulk. No fasciculations. No spontaneous movement. REFLEXES: Deep tendon reflexes are symmetrical. No pathological reflexes. CEREBELLAR/COORDINATION: Deferred GAIT/STATION: deferred. Labs/Diagnostic Data Labs Test 08/30/24 10:43 08/30/24 10:30 08/29/24 10:00 08/29/24 05:30 Range/Units POC Glucose 177 H 70-106 mg/dl White Blood Count 23.4 #H 4.4-10.8 10^3/uL Red Blood Count 5.06 4.0-5.20 10^6/uL Hemoglobin 14.1 # 12.2-16.2 g/dL Hematocrit 47.3 H 36.0-46.0 % Mean Corpuscular Volume 93.4 # 80.0-100.0 fL Mean Corpuscular Hemoglobin 28.0 28.0-32.0 pg Mean Corpuscular Hemoglobin Concent 29.9 L 32.0-36.0 g/dL Red Cell Distribution Width 15.3 H 11.8-14.3 % Platelet Count 386 140-450 10^3/uL Mean Platelet Volume 8.6 6.9-10.8 fL Neutrophils (%) (Auto) 78.0 37.0-80.0 % Lymphocytes (%) (Auto) 11.6 10.0-50.0 % Monocytes (%) (Auto) 10.3 0.0-12.0 % Eosinophils (%) (Auto) 0.0 0.0-7.0 % Basophils (%) (Auto) 0.1 0.0-2.0 % Neutrophils # (Auto) 18.2 H 1.6-8.6 10 ^3/uL Lymphocytes # (Auto) 2.7 0.4-5.4 10 ^3/uL Monocytes # (Auto) 2.4 H 0-1.3 10 ^3/uL Eosinophils # (Auto) 0 0-0.8 10 ^3/uL Basophils # (Auto) 0 0-0.2 10 ^3/uL Nucleated Red Blood Cells 0.0 % Prothrombin Time 15.6 H 9.3-11.8 sec Prothrombin Time INR 1.52 H 0.9-1.15 Activated Partial Thromboplast Time 41.6 H 24.5-34.5 SEC D-Dimer, Quantitative 17.76 H 0.0-0.49 mg/L FEU Sodium Level 134 #L 136-145 mmol/L Potassium Level 3.8 3.5-5.1 mmol/L Chloride Level 96 L 98-107 mmol/L Carbon Dioxide Level 10 L 20-31 mmol/L Anion Gap 28 H 5-15 Blood Urea Nitrogen 48 H 9-23 mg/dL Creatinine 2.43 #H 0.550-1.02 mg/dL Glomerular Filtration Rate Calc 22 >90 mL/min BUN/Creatinine Ratio 19.8 10.0-20.0 Serum Glucose 227 H 74-106 mg/dL Hemoglobin A1c 5.7 <5.7 % A1C Calcium Level 9.6 8.7-10.4 mg/dL Magnesium Level 2.8 #H 1.6-2.6 mg/dL Total Bilirubin 0.7 0.2-1.0 mg/dL Aspartate Amino Transferase (AST) 100 H 13-40 U/L Alanine Aminotransferase (ALT) 45 H 7-40 U/L Alkaline Phosphatase 64 46-116 U/L Troponin I High Sensitivity > 86915 *H </=34 ng/L Total Protein 5.1 L 5.7-8.2 g/dL Albumin 3.2 3.2-4.8 g/dL Influenza Type A Antigen Negative Negative Influenza Type B Antigen Negative Negative SARS-CoV-2 Antigen (Rapid) Negative NEGATIVE Differential Total Cells Counted 100.0 100 Neutrophils % (Manual) 84 H 37.0-80.0 Band Neutrophils % (Manual) 5 Lymphocytes % (Manual) 7 L 10.0-50.0 Monocytes % (Manual) 4 0-12 Eosinophils % (Manual) 0 0-7 Basophils % (Manual) 0 0.0-2.0 Metamyelocytes % (manual) 0 Myelocytes % (Manual) 0 Promyelocytes % (Manual) 0 Blast Cells % (Manual) 0 Reactive Lymphocytes 0 Platelet Estimate Adequate Erythrocyte Sedimentation Rate 1 0-20 mm/hr C-Reactive Protein High Sensitivity 7.63 H <1.0 mg/dL Triglycerides Level 95 < 150 mg/dL Cholesterol Level 153 < 200 mg/dL LDL Cholesterol 67 < 100 mg/dL HDL Cholesterol 66 H 40-59 mg/dL Thyroid Stimulating Hormone (TSH) 0.89 0.55-4.78 uIU/mL Microbiology Date/Time Source Procedure Growth Status 08/29/24 08:03 Blood Blood Culture - Preliminary NO GROWTH AFTER 24 HOURS OF INCUBATION. Resulted Assessment Dilated and unequal pupils Severe hypoxic brain injury Brain herniation Acute mental status changes ? Medication overdose Hypoxic encephalopathy Toxic encephalopathy Acute heart attack Leukocytosis Sepsis Plan/Recommendation Monitoring Supportive treatment ICU care UDS Blood culture EEG CT head IV antibiotics Cardiology on case More recommendation per clinical course Prognosis: Guarded Critical care time spent is 45 minutes This medical document was created using an electronic medical record system with [employer] dictation system. Although this document has been carefully reviewed, there may still be some phonetic and typographical errors. These areas are purely typographical due to imperfections of the software programs, and do not reflect any compromise in the patient's medical care. Plan discussed with: Other NELLY BIGGS MD Aug 30, 2024 12:09
--- NOTE | 2024-08-30 13:05 | DVH ---
EXAM: CT HEAD WITHOUT CONTRAST INDICATION: POSSIBLE HEAD TRAUMA TECHNIQUE: CT of the head without intravenous contrast. Radiation Dose Information: CT Dose: CTDI volume is 50.3 mGy. Dose-length product is 806.52 mGy*cm The dose indicators for CT are the volume Computed Tomography (CT) Dose Index (CTDIvol) and the Dose Length Product (DLP), and are measured in units of mGy and mGy-cm, respectively. These indicators are not patient dose, but values generated from the CT scanner acquisition factors. The report includes radiation exposure data for exposures received during this examination. COMPARISON: CT ABD PELVIS WO CONTRAST on DOS: 10/18/22 FINDINGS: There is no evidence of acute intracranial hemorrhage, extra-axial collection, mass effect, midline s hift, herniation or hydrocephalus. The ventricles, sulci and cisterns are age appropriate. The chau-white differentiation is intact. Patchy periventricular and subcortical white matter hypoattenuation is nonspecific but may be related to small vessel ischemic disease. The visualized paranasal sinuses and mastoid air cells are clear. The surrounding soft tissues and osseous structures are unremarkable. IMPRESSION: 1. No acute intracranial hemorrhage. 2. No CT findings of displaced skull fracture 3. Findings territorial ischemia HS:Y
--- NOTE | 2024-08-30 13:05 | DVH ---
CHEST RADIOGRAPH Indication: protocol Technique: Single frontal view of the chest was obtained COMPARISON: XY CHEST PORTABLE on DOS: 08/30/24 FINDINGS: Lines and Tubes: Endotracheal tube has been retracted and terminates approximately 3 cm above the car venus. Enteric tube terminates below the diaphragm outside the field of view. Right IJ central venous catheter terminates in the plane of the superior cavoatrial junction. Lungs: Clear Pleura: No effusion. No pneumothorax. Cardiomediastinal contours: Unremarkable Bones: Unremarkable IMPRESSION: 1. Endotracheal tube has been retracted and terminates approximately 3 cm above the kendra.
--- NOTE | 2024-08-30 13:28 | DVHINCON2 ---
Date of service: Aug 30, [address] Chaz Marie Reason for Consultation Ventilator management History of Present Illness A 59-year-old woman with past medical history of hypertension and diabetes mellitus type 2, transferred from [facility] on 08/29/24 for pawel gnosed STEMI evaluation and incarcerated umbilical hernia. Patient was transported via EMS. Cardiology consultation was done, pt taken to tailings dam laborer for evaluation of coronary arteries given significant diffuse ST elevation and EKG. Surgery consultation for evaluation of incarcerated umbilical hernia. Medical record [place] [facility] [place] [address]; CT abdomen pelvis showed a large left umbilical hernia defect containing loops of small bowel, findings suspicious for early or developing small bowel obstruction secondary to incarceration. Patient was admitted to ICU for further care. Pulmonary consultation is requested d/t acute hypoxic respiratory failure requiring mechanical ventilator. Review of Systems: 14-point review of systems negative unless otherwise noted above. Past Medical History: Hypertension, diabetes mellitus type 2 Past Surgical History: ?Exploratory abdominal/unknown surgery. Medications: Reviewed. Allergies: Sulfa antibiotics, morphine, opioids. Family History: No family history of premature CAD. No family history of lung disorders. Social History: Unable to obtain given patient emergently transferred to tailings dam laborer. Family History: Patient reports no known family medical history. Allergies: Coded Allergies: Sulfa Antibiotics (Verified Allergy, Severe, 10/18/22) Morphine (Verified Allergy, Unknown, 04/29/15) Uncoded Allergies: OPIODS (Allergy, Unknown, 04/29/15) Home Meds Active Scripts Nitrofurantoin Monohydrate Mac (Macrobid) 100 Mg Cap, 100 MG PO BID for 7 Days, #14 CAP Prov:NUVIA TRENT MD 10/19/22 Current Medications Current Medications Medications (Trade) Dose Ordered Sig/Wayne Route PRN Reason Start Time Stop Time Status Last Admin Diagnostic Test (Pha) (Accu-Chek Comfort Curve T) 1 strip IQ4HR 08/29/24 16:00 08/30/24 12:02 Insulin Human Regular (InsuLIN R) IQ4HR SC 08/29/24 16:00 08/30/24 12:17 Dextrose 50 ml UD PRN IV Blood Sugar LESS THAN 60 08/29/24 14:15 Norepinephrine Bitartrate 250 ml @ 3.75 mls/hr Q24H IV 08/30/24 11:00 Phenylephrine HCl 250 ml @ 30 mls/hr Q8H20M IV 08/30/24 11:00 Midazolam HCl 50 ml @ 1 mls/hr Q24H IV 08/30/24 11:00 Fentanyl Citrate 250 ml @ 2.5 mls/hr Q24H IV 08/30/24 11:00 Vital Signs Vital Signs Date Time Temp Pulse Resp B/P (MAP) Pulse Ox O2 Delivery O2 Flow Rate FiO2 08/30/24 12:02 130 157/87 08/30/24 11:54 97.9 20 100 100 97.9 08/30/24 08:00 Room Air* 0 Physical Exam Gen.: Patient lying in bed in medical ICU. Sedated, intubated on mechanical ventilator. Head: Normocephalic, atraumatic. Eyes: PERRLA. Ears: Normal external anatomy. Throat: Endotracheal tube and orogastric tube in place. Neck: Supple, trachea midline. Chest: Transmitted breath sounds bilaterally. Decreased air entry bilaterally. No wheezing. Bibasilar crackles. Cardiovascular: Positive S1, positive S2. Regular rate and rhythm. Abdomen: Positive bowel sounds in all 4 quadrants. Soft, nontender, nondi stended. : Randle in place. Normal external genitalia. Rectal: Deferred. Skin: Warm, dry. Intact. Extremities: 2+ radial pulses bilaterally. No lower extremity edema. Neuro: Sedated. Labs/Diagnostic Data Labs Test 08/30/24 10:43 08/30/24 10:30 08/29/24 10:00 08/29/24 05:30 Range/Units POC Glucose 177 H 70-106 mg/dl White Blood Count 23.4 #H 4.4-10.8 10^3/uL Red Blood Count 5.06 4.0-5.20 10^6/uL Hemoglobin 14.1 # 12.2-16.2 g/dL Hematocrit 47.3 H 36.0-46.0 % Mean Corpuscular Volume 93.4 # 80.0-100.0 fL Mean Corpuscular Hemoglobin 28.0 28.0-32.0 pg Mean Corpuscular Hemoglobin Concent 29.9 L 32.0-36.0 g/dL Red Cell Distribution Width 15.3 H 11.8-14.3 % Platelet Count 386 140-450 10^3/uL Mean Platelet Volume 8.6 6.9-10.8 fL Neutrophils (%) (Auto) 78.0 37.0-80.0 % Lymphocytes (%) (Auto) 11.6 10.0-50.0 % Monocytes (%) (Auto) 10.3 0.0-12.0 % Eosinophils (%) (Auto) 0.0 0.0-7.0 % Basophils (%) (Auto) 0.1 0.0-2.0 % Neutrophils # (Auto) 18.2 H 1.6-8.6 10 ^3/uL Lymphocytes # (Auto) 2.7 0.4-5.4 10 ^3/uL Monocytes # (Auto) 2.4 H 0-1.3 10 ^3/uL Eosinophils # (Auto) 0 0-0.8 10 ^3/uL Basophils # (Auto) 0 0-0.2 10 ^3/uL Nucleated Red Blood Cells 0.0 % Prothrombin Time 15.6 H 9.3-11.8 sec Prothrombin Time INR 1.52 H 0.9-1.15 Activated Partial Thromboplast Time 41.6 H 24.5-34.5 SEC D-Dimer, Quantitative 17.76 H 0.0-0.49 mg/L FEU Sodium Level 134 #L 136-145 mmol/L Potassium Level 3.8 3.5-5.1 mmol/L Chloride Level 96 L 98-107 mmol/L Carbon Dioxide Level 10 L 20-31 mmol/L Anion Gap 28 H 5-15 Blood Urea Nitrogen 48 H 9-23 mg/dL Creatinine 2.43 #H 0.550-1.02 mg/dL Glomerular Filtration Rate Calc 22 >90 mL/min BUN/Creatinine Ratio 19.8 10.0-20.0 Serum Glucose 227 H 74-106 mg/dL Hemoglobin A1c 5.7 <5.7 % A1C Calcium Level 9.6 8.7-10.4 mg/dL Magnesium Level 2.8 #H 1.6-2.6 mg/dL Total Bilirubin 0.7 0.2-1.0 mg/dL Aspartate Amino Transferase (AST) 100 H 13-40 U/L Alanine Aminotransferase (ALT) 45 H 7-40 U/L Alkaline Phosphatase 64 46-116 U/L Troponin I High Sensitivity > 16500 *H </=34 ng/L Total Protein 5.1 L 5.7-8.2 g/dL Albumin 3.2 3.2-4.8 g/dL Influenza Type A Antigen Negative Negative Influenza Type B Antigen Negative Negative SARS-CoV-2 Antigen (Rapid) Negative NEGATIVE Differential Total Cells Counted 100.0 100 Neutrophils % (Manual) 84 H 37.0-80.0 Band Neutrophils % (Manual) 5 Lymphocytes % (Manual) 7 L 10.0-50.0 Monocytes % (Manual) 4 0-12 Eosinophils % (Manual) 0 0-7 Basophils % (Manual) 0 0.0-2.0 Metamyelocytes % (manual) 0 Myelocytes % (Manual) 0 Promyelocytes % (Manual) 0 Blast Cells % (Manual) 0 Reactive Lymphocytes 0 Platelet Estimate Adequate Erythrocyte Sedimentation Rate 1 0-20 mm/hr C-Reactive Protein High Sensitivity 7.63 H <1.0 mg/dL Triglycerides Level 95 < 150 mg/dL Cholesterol Level 153 < 200 mg/dL LDL Cholesterol 67 < 100 mg/dL HDL Cholesterol 66 H 40-59 mg/dL Thyroid Stimulating Hormone (TSH) 0.89 0.55-4.78 uIU/mL Microbiology Date/Time Source Procedure Growth Status 08/29/24 08:03 Blood Blood Culture - Preliminary NO GROWTH AFTER 24 HOURS OF INCUBATION. Resulted Assessment Impression: Acute hypoxic respiratory failure On mechanical ventilator Non-ST elevation myocardial infarction PolySubstance abuse Acute metabolic encephalopathy Metabolic acidosis Lactic acidosis Obesity BMI 35 Plan: s/p intubation on mechanical ventilator ABG reviewed, notable for acidemia. Vent settings; A/C mode with RR 20, VT 450, PEEP 8, FiO2 100% Titrate FIO2 to keep O2 saturation above 92%. VAP bundle Daily ABG and CXR while intubated. Sedate for ventilatory synchrony - placed on Fentanyl and Versed Patient is altered, improved somewhat w/ Narcan but still altered. Start Levophed if necessary for hemodynamic support. Titrate to keep MAP above 65 mmHg/SBP above 90 mmHg. 2 amps bicarb given. Continue antibiotics. F/u cultures. Monitor renal function due to Acute kidney injury. Monitor electrolytes. Supplement as necessary. Monitor ins and outs Nutritional support. Accu-Cheks, ISS. GI/DVT prophylaxis. Condition: Critical Prognosis: Poor given multiple comorbidities. Rest of plan per hospitalist and other consultants. A total of 37 minutes of critical care time was spent reviewing the patient record, examining the patient, making a diagnostic and therapeutic plan, discussing this plan with the medical personnel, following up on diagnostic studies and following the patient for clinical stability excluding any and all procedures. At least 50% of this time was spent in direct, [id number] contact. Thank you, Dr. Marie, for allowing me to participate in this patient's care. Further recommendations will depend on patient's clinical course. Please do not hesitate to contact me if you have any questions or concerns. This medical document was created using an electronic medical record system with [employer] dictation system. Although this document has been carefully reviewed, there may still be some phonetic and typographical errors. These areas are purely typographical due to imperfections of the software programs, and do not reflect any compromise in the patient's medical care. Plan discussed with: Other (Re Shaver Sergio, RT, MD) MARGA JONES MD Aug 30, 2024 13:28
--- NOTE | 2024-08-30 13:31 | DVHNC2 ---
Procedure - Radial arterial line procedure note Indication: Hemodynamic monitoring, frequent blood ABG draws. Job Cost Estimator: Dr. Graff Date: 08/30/2024 Time: 1329 Time out 1310 pm Consent: Emergent procedure, needed for hemodynamic monitoring AND ABG difficulty in obtaining ABG. Patient medications and allergies reviewed. The risks and benefits of the procedure and the sedation options and risk were discussed with the patient's healthcare proxy. All questions were answered and informed consent was obtained. Patient identification and proposed procedure were verified prior to the procedure by the physician, and a nurse in the patient's room. The heart rate, respiratory rate, oxygen saturations, blood pressure, adequacy of pulmonary ventilation, and response to care were monitored throughout the procedure. The physical status of the patient was reassessed after the procedure. Procedure summary: A time-out was performed. My hands were washed immediately prior to the procedure. I wore surgical cap, mask with protective eyewear, sterile gown and sterile gloves throughout the procedure. After an Johnny test was performed to ensure adequate perfusion, the RIGHT wrist was prepped using chlorhexidine scrub and draped in sterile fashion using sterile towels. The radial pulse was identified with the use of ultrasound. The wrist was positioned in the usual fashion. Anesthesia was achieved using 1% lidocaine. Using the radial arterial line kit, needle was inserted into the radial artery using ultrasound guidance. Arterial blood flow was seen to pulsate in the flash chamber. The internal guidewire was advanced easily into the radial artery. The catheter was then advanced over the wire and the needle and wire were withdrawn. The catheter was sutured into place with 1 sutures. A sterile Biopatch and Tegaderm was placed over the catheter at the insertion site. The patient tolerated the procedure without any hemodynamic compromise. At the time of procedure completion, the catheter was connected to the traffic monitor specialist and calibrated. Appropriate w aveform and blood pressure tracing was observed. Estimated blood loss is less than 5 mL. CPT: 33549 Arterial line insertion CPT: 01669 US add-on MARGA GRAFF MD Aug 30, 2024 13:31
[2024-08-30 14:29] LABS: Base Excess -23.6 mmol/L (-2.0-3.0)
[2024-08-30] MEDS: SODIUM BICARB 50mEq/50ml Vial 150 ML in D5W 5% 1,000 ML IV SCH (14:30)
[2024-08-30] MEDS: NOREPINEPHRINE 8 MG/250ML KIT 250 ML IV SCH (14:51)
[2024-08-30] MEDS ORDERED: VASOPRESSIN 20 UNITS in SODIUM CHL 0.9% 99 ML IV SCH (15:00)
[2024-08-30] MEDS: VASOPRESSIN 20 UNIT/ML ONE (15:01)
--- NOTE | 2024-08-30 15:50 | DVHNC2 ---
Central Line Recorder of insertion practice: Tobacco Cutter Occupation of tray packer: Attending Physician Indication: Hypotension, CVP monitoring Room prepared for procedure: Yes Tobacco Cutter performed hand hygien: Yes Maximal sterile barrier precau: Mask/Eye shield, Sterile gown Skin Preparation: Chlorhexidine gluconate Skin preparation completely dr: Yes Insertion site: Right, Internal jugular Central line catheter type: [id number]-[id number] dialysis Number of lumens: 3 Antiseptic ointment applied to: Yes Post Assessment: Chest X-Ray Date of Service: Aug 30, 2024 Billing Provider: LILY KENNY MD Common Visit Codes: 93215-[id number] INP/OBS CARE (HIGH) Secondary Visit Codes: [id number] STANDBY SERVICE Consultation Codes: 96324-[id number] CONSULT <45MIN Procedure Codes: 60817-NYEHKA NON-TUNNEL CV CATH LILY KENNY MD Aug 30, 2024 15:50
[2024-08-30 16:24] LABS: Base Excess -20.8 mmol/L (-2.0-3.0)
[2024-08-30 18:20] LABS: Base Excess -18.5 mmol/L (-2.0-3.0)
[2024-08-30] MEDS: VASOPRESSIN 20 UNITS in SODIUM CHL 0.9% 99 ML IV SCH (18:45)
--- NOTE | 2024-08-30 18:51 | RESUS ---
CODE ASSIST ASSESSSMENT Initial Information Code Assist Date: Aug 30, 2024 Code Assist Time: 09:58 Location of Arrest: [facility] Room # 290A Provider Name DR Chaz WATSON PRIMARY, DR KENNY ED DR CAME TO BEDSIDE AND RESIDENT DR COX Time Notified: 09:58 Time PMD returned call: 09:58 Crash Cart Opened and Supplies: Yes Situation Staff concerned/worried, speci: HR <40, Non-responsive, RR <8, Change LOC Situation comment: FOUND IN BATHROOM SEE NOTE BY PRIMARY RN KENDALL, PATIENT WAS TRANSFERRED BACK TO BED WITH TOTAL ASSIST. PER ROOMATE PATIENT WAS "MESSING WITH HER PILLS ALL MORNING" PATIENT FOUND TO HAVE ATIVAN AND NORCO HOME MEDICATIONS ON HER WITH VAPE WELL WITH UNKNOWN SUBSTANCE. PILL BOTTLES SENT TO PHARMACY. Background Background: STEMI YESTERDAY TRANSFERRED FROM [facility], DR Edel SNEED TOOK PATIENT TO ETCHED CIRCUIT PROCESSOR AND CORONARIES CLEAR PER NOTE PATIENT HAS TAKOTSUBO WITH ST ELEVATION. Assessment Temperature (Fahrenheit): 97.9 Blood Pressure Systolic: 64 Blood Pressure Diastolic: 20 Respiratory Rate: 8 O2 Sat by Pulse Oximetry: 57 Bedside Blood Glucose: 177 Assessment comment: FOUND IN BED UPON ARRIVAL TO CODE ASSIST NOT BREATHING, PUPILS NONREACTIVE TO LIGHT AND 6-7 MM IN SIZE. Recommendations/Interventions Medications and Responses : ADULT Medications Given: ATROPINE Route of Administration: IV Medication Comment: GAVE 2 MG NARCAN THEN REPEATED DOSE 5 MINS LATER PATIENT RESPONDED PHYSICALLY BY MOVING ARMS LEGS AND BODY BUT DID NOT VERBALLY RESPOND. DECISION MADE BY MD TO INTUBATE. HR IN 40-50'S ATROPINE 1 DOSE GIVEN PER MD ORDER AND 2 AMPS SODIUM BICARB GIVEN PER ORDER. Procedures: Accu check, Inititate ACLS Protocol, Intubated, Bag Mask Outcome Outcome: Transfer to ICU Follow up Report Follow up Report INTUBATED, NO SEDATION ON LEVOPHED TRANSFERRED TO [facility] WITH JULIAN BOURNE AT 1300 AFTER TAKEN TO HEAD CT. SEDATION NOT STARTED DUE TO NEUROLOGICAL STATUS. Polo Magallanes Aug 30, 2024 18:51
[2024-08-30 18:58] LABS: Urine Bacteria None Seen /hpf (None Seen)
[2024-08-30 19:21] LABS: Urine Blood 2+ /uL (Negative); Urine Clarity Ex.Turbid (Clear); Urine Color Light-Orange (Yellow); Urine Protein, UAD 2+ (Negative); Urine Specific Gravity 1.021 (1.001-1.035); Urine Squamous Epithelial Cell FEW /hpf (<5); Urine Urobilinogen Normal (Negative); Urine WBC 10 /hpf (0 - 5); Urine pH 5.5 (5.0-9.0)
--- NOTE | 2024-08-30 20:00 | DVHPN2 ---
Progress Note - Dictate Date Seen: Aug 30, 2024 Medical Necessity Reason Pt with a Central, PICC or Fol: Yes The following are medically ne: Randle Catheter Subjective Patient was seen and evaluated in follow-up in the ICU. Patient underwent left heart catheterization, [place] selective left and right coronary angiography. This patient has got Takotsubo syndrome. The patient has the whole anterior wall, apical wall and apical inferior wall have become remarkably hypokinetic and dilated. The coronary arteries are all widely open. No stenosis, no spasm, no dissection and no thrombus. Circumflex artery is a large luminal artery. Discussion done with the in-house resident physician and advised for IV antibiotic and get a surgical consultation for incarcerated hernia. Overnight patient developed respiratory failure and was unable to protect airway. She was intubated for airway protection. Echocardiogram showed an EF of 28%. WBC 23.4. BUN 48 ,GEOTHERMAL POWERPLANT MECHANIC 2.43, troponin >76463. vital signs Vital Sign Date Time Temp Pulse Resp B/P (MAP) Pulse Ox O2 Delivery O2 Flow Rate FiO2 08/30/24 10:20 97 20 86/73 (77) 100 08/30/24 09:00 97.9 98 97.9 08/30/24 08:00 Room Air* 0 Total Intake and Output 08/29/24 08/29/24 08/30/24 15:00 23:00 07:00 Intake Total 625 ml 450 ml Balance 625 ml 450 ml medications Current Medications Medications Dose Ordered Sig/Wayne Route Start Time Stop Time Status Last Admin Dose Admin Nitroglycerin 0.4 mg Q5MINP PRN SL 08/29/24 06:00 08/30/24 04:34 0.4 MG Morphine Sulfate 2 mg Q30M PRN IV 08/29/24 06:00 Piperacillin Sod/ Tazobactam Sod 100 ml @ 25 mls/hr Q8HR IV 08/29/24 06:00 08/30/24 06:06 25 MLS/HR Ondansetron HCl 4 mg Q4HPRN PRN IV 08/29/24 06:00 Pantoprazole Sodium 40 mg DAILY IV 08/29/24 10:00 08/30/24 11:30 40 MG Metoprolol Tartrate 2.5 mg Q6HR IV 08/29/24 12:00 08/30/24 00:40 2.5 MG Metoprolol Tartrate 2.5 mg Q6HR IV 08/29/24 12:00 UNV Enoxaparin Sodium 30 mg DAILY SC 08/29/24 10:00 Hydromorphone HCl 1 mg Q3HPRN PRN IV 08/29/24 07:00 08/30/24 08:11 1 MG Diagnostic Test (Pha) 1 strip IQ4HR 08/29/24 16:00 08/30/24 08:15 1 STRIP Insulin Human Regular IQ4HR SC 08/29/24 16:00 08/30/24 08:22 6 UNITS Dextrose 50 ml UD PRN IV 08/29/24 14:15 Norepinephrine Bitartrate 250 ml @ 3.75 mls/hr Q24H IV 08/30/24 11:00 Phenylephrine HCl 250 ml @ 30 mls/hr Q8H20M IV 08/30/24 11:00 Midazolam HCl 50 ml @ 1 mls/hr Q24H IV 08/30/24 11:00 Fentanyl Citrate 250 ml @ 2.5 mls/hr Q24H IV 08/30/24 11:00 objective GENERAL: Intubated on ventilator. LUNGS: Decreased breath sounds. CARDIOVASCULAR: Tachycardia. ABDOMEN: Soft. Slight distention noted. laboratory and microbiology Laboratory Tests 08/30/24 10:30 Test 08/30/24 10:30 Range/Units Serum Glucose 227 H 74-106 mg/dL Problem List Acute ST elevation. Acute pericarditis versus methamphetamine use coronary spasm. Incarcerated hernia. Leukocytosis. Respiratory failure due to self induced drug overdose. Takotsubo syndrome. Assessment/Plan Continued all current supportive medical care. DVT and GI prophylactics. Dilaudid for pain management. Metoprolol. Vasopressors for hemodynamic support. IV antibiotics as ordered. Additional plan as per the hospital course. Critical care time of 45 minutes provided to include time spent evaluation of patient at bedside, when appropriate patient/family education for diagnosis, treatment plan, review of pertinent medical information and discussion of care with specialty providers and PCP. Mechanical ventilator parameters, treatment and adjustments have personally been reviewed by me and treatment plan by kier pleater has also been reviewed. Plan discussed with: Other SRI SNEED MD Aug 30, 2024 11:54
[2024-08-30] MEDS: SODIUM BICARB 8.4% 50Meq/50ml SYR INJ ONE (20:04)
[2024-08-30] MEDS: SODIUM BICARB 8.4% 50Meq/50ml SYR Vial IV ONE ×3 (20:11→22:14)
[2024-08-30] MEDS: EPINEPHrine HCL 250 ML IV SCH (20:51)
[2024-08-30 21:15] LABS: Base Excess -11.6 mmol/L (-2.0-3.0)
[2024-08-30 21:37] LABS: Lactic Acid w/Reflex 7.9 mmol/L (0.4-2.0)
[2024-08-30] MEDS: LACTATED RINGER'S 1,000 ML IV ONE (22:15)
[2024-08-30 22:48] LABS: Opiate Scree,Urine Neg (NEGATIVE)
[2024-08-30 22:49] LABS: Amphetamine Screen, Urine Pos (NEGATIVE); Barbiturate Scree,Urine Neg (NEGATIVE); Benzodiazephine Screen, Urine Neg (NEGATIVE); Cannabinoid Screen, Urine Neg (NEGATIVE); Cocaine Screen, Urine Neg (NEGATIVE); Phencyclidine Screen, Urine Neg (NEGATIVE)
[2024-08-31] VITALS (111 sets, daily range): BP systolic 33–112; BP diastolic 15–75; PULSE 97–173; RESP 24–38; TEMP 96.3–99.5; O2SAT 10–100
[2024-08-31 02:23] LABS: Hematocrit 35.8 % (36.0-46.0); Hemoglobin 11.6 g/dL (12.2-16.2); Mean Corpuscular Hemoglobin 27.9 pg (28.0-32.0); Mean Corpuscular Hgb Conc. 32.5 g/dL (32.0-36.0); Mean Corpuscular Volume 85.7 fL (80.0-100.0); Platelet Count (auto) 254 10^3/uL (140-450); Red Blood Cells 4.17 10^6/uL (4.0-5.20); Red Cell Distribution Width 14.8 % (11.8-14.3); White Blood Cell 15.6 10^3/uL (4.4-10.8)
[2024-08-31 02:25] LABS: Basophils % (manual) 0 (0.0-2.0); Blast Cells 0; Eosinophils % (manual) 0 (0-7); Metamyelocytes % 0; Promyelocytes % 0; Reactive Lymphocytes 0
[2024-08-31 02:34] LABS: Alkaline Phosphatase 59 U/L (46-116); Anion Gap 25 (5-15); BUN/Creatinine Ratio 20.1 (10.0-20.0); Bilirubin, Total 1.1 mg/dL (0.2-1.0); Chloride 99 mmol/L (98-107); Magnesium 2.3 mg/dL (1.6-2.6); Potassium 3.8 mmol/L (3.5-5.1)
[2024-08-31 02:37] LABS: Albumin 2.1 g/dL (3.2-4.8); Blood Urea Nitrogen 60 mg/dL (9-23); Calcium 6.6 mg/dL (8.7-10.4); Carbon Dioxide 12 mmol/L (20-31); Glucose 142 mg/dL (74-106); Sodium 136 mmol/L (136-145); Total Protein 3.4 g/dL (5.7-8.2)
[2024-08-31 02:58] LABS: Band Neutrophils % (manual) 36; Lymphocytes % (manual) 19 (10.0-50.0); Monocytes % (manual) 3 (0-12); Myelocytes % 1; Platelet Estimate Adequate
[2024-08-31 04:51] LABS: Alanine Aminotransferase 5966 U/L (7-40); Aspartate Aminotransferase > 6000 U/L (13-40)
--- NOTE | 2024-08-31 05:56 | DVH ---
CHEST RADIOGRAPH Indication: intubated Technique: Single frontal view of the chest was obtained Comparison: XY CHEST PORTABLE on DOS: 08/30/24, XY CHEST PORTABLE on DOS: 08/30/24, XY CHEST PORTABLE on DOS: 08/29/24 IMPRESSION: Enteric tube tip is likely just beyond the gastroesophageal junction, consider advancement of approxi mately 5 cm for ideal positioning. Endotracheal tube and right IJ catheter appears satisfactory position. Heart appears stable in size. The lungs appear clear without focal airspace opacity, effusion, or pn eumothorax.
[2024-08-31] MEDS: ALBUMIN 5% 250 ML IV ONE (05:58)
[2024-08-31] MEDS: SODIUM BICARB 8.4% 50Meq/50ml SYR INJ ONE (05:59)
[2024-08-31] MEDS: SODIUM BICARB 8.4% 50Meq/50ml SYR Vial IV ONE (06:00)
[2024-08-31 06:40] LABS: Base Excess -18.1 mmol/L (-2.0-3.0)
[2024-08-31] MEDS: DEXTROSE (50%) 50ML SYRG IV PRN (08:15)
--- NOTE | 2024-08-31 08:19 | DVHPN2 ---
Reviewed: Care Plan, H&P, Labs, Medications, Previous Orders, Radiology Changes from previous H/P or p: No Changes Objective Vitals Vital Signs Date Time Temp Pulse Resp B/P (MAP) Pulse Ox O2 Delivery O2 Flow Rate FiO2 08/31/24 07:59 152 31 47/40 (42) 96 40 08/31/24 07:45 97.9 208.2 08/31/24 06:00 Mechanical Ventilator+ 08/30/24 20:00 0 Intake/Output Intake and Output 08/31/24 07:00 Intake Total 6256.75 ml Output Total 55 ml Balance 6201.75 ml IV Total 6256.75 ml Output Urine Total 55 ml Medications Current Medications Medications Dose Ordered Sig/Wayne Route Start Time Stop Time Status Last Admin Dose Admin Nitroglycerin 0.4 mg Q5MINP PRN SL 08/29/24 06:00 08/30/24 04:34 0.4 MG Morphine Sulfate 2 mg Q30M PRN IV 08/29/24 06:00 Piperacillin Sod/ Tazobactam Sod 100 ml @ 25 mls/hr Q8HR IV 08/29/24 06:00 08/31/24 05:10 25 MLS/HR Ondansetron HCl 4 mg Q4HPRN PRN IV 08/29/24 06:00 Pantoprazole Sodium 40 mg DAILY IV 08/29/24 10:00 08/30/24 11:30 40 MG Metoprolol Tartrate 2.5 mg Q6HR IV 08/29/24 12:00 08/30/24 12:02 2.5 MG Metoprolol Tartrate 2.5 mg Q6HR IV 08/29/24 12:00 UNV Enoxaparin Sodium 30 mg DAILY SC 08/29/24 10:00 Hydromorphone HCl 1 mg Q3HPRN PRN IV 08/29/24 07:00 08/30/24 08:11 1 MG Diagnostic Test (Pha) 1 strip IQ4HR 08/29/24 16:00 08/31/24 04:12 1 STRIP Insulin Human Regular IQ4HR SC 08/29/24 16:00 08/30/24 18:39 2 UNITS Dextrose 50 ml UD PRN IV 08/29/24 14:15 Norepinephrine Bitartrate 250 ml @ 3.75 mls/hr Q24H IV 08/30/24 11:00 08/31/24 07:13 56.25 MLS/HR Phenylephrine HCl 250 ml @ 30 mls/hr Q8H20M IV 08/30/24 11:00 08/31/24 05:36 135 MLS/HR Midazolam HCl 50 ml @ 1 mls/hr Q24H IV 08/30/24 11:00 08/31/24 02:56 1 MLS/HR Fentanyl Citrate 250 ml @ 2.5 mls/hr Q24H IV 08/30/24 11:00 Sodium Bicarbonate 150 ml/Dextrose 1,150 ml @ 100 mls/hr [id number] IV 08/30/24 14:30 08/31/24 01:02 100 MLS/HR Epinephrine HCl 250 ml @ 7.5 mls/hr Q24H IV 08/30/24 15:00 08/30/24 20:51 7.5 MLS/HR Vasopressin 20 units/Sodium Chloride 100 ml @ 3 mls/hr Q24H IV 08/30/24 18:45 08/31/24 03:36 9 MLS/HR Laboratory Results Laboratory Tests 08/31/24 01:56 Chemistry Test 08/30/24 10:30 08/31/24 01:56 Albumin 3.2 g/dL (3.2-4.8) 2.1 g/dL (3.2-4.8) L Calcium Level 9.6 mg/dL (8.7-10.4) 6.6 mg/dL (8.7-10.4) L Magnesium Level 2.8 mg/dL (1.6-2.6) #H 2.3 mg/dL (1.6-2.6) Total Protein 5.1 g/dL (5.7-8.2) L 3.4 g/dL (5.7-8.2) L Coagulation Test 08/30/24 10:30 Prothrombin Time 15.6 sec (9.3-11.8) H Prothrombin Time INR 1.52 (0.9-1.15) H Activated Partial Thromboplast Time 41.6 SEC (24.5-34.5) H D-Dimer, Quantitative 17.76 mg/L FEU (0.0-0.49) H Cardiac Markers Test 08/30/24 10:30 B-Type Natriuretic Peptide > 5000.00 pg/mL (0-100) LFT Test 08/30/24 10:30 08/31/24 01:56 Alanine Aminotransferase (ALT) 45 U/L (7-40) H 5966 U/L (7-40) H Alkaline Phosphatase 64 U/L (46-116) 59 U/L (46-116) Aspartate Amino Transferase (AST) 100 U/L (13-40) H > 6000 U/L (13-40) H Total Bilirubin 0.7 mg/dL (0.2-1.0) 1.1 mg/dL (0.2-1.0) H HgA1c, TSH Test 08/30/24 10:30 Hemoglobin A1c 5.7 % A1C (<5.7) Urinalysis Test 08/30/24 17:46 Urine Color Light-orange (Yellow) Urine Clarity Ex.turbid (Clear) Urine pH 5.5 (5.0-9.0) Urine Specific [place] 1.021 (1.001-1.035) Urine Protein 2+ (Negative) H Urine Ketones Trace (Negative) Urine Blood 2+ /uL (Negative) H Urine Nitrite Negative (Negative) Urine Bilirubin Negative (Negative) Urine Urobilinogen Normal mg/dL (Negative) Urine Leukocyte Esterase Negative /uL (Negative) Urine RBC 13 /hpf (0 - 4) Urine WBC 10 /hpf (0 - 5) Urine Squamous Epithelial Cells Few /hpf (<5) Urine Bacteria None seen /hpf (None Seen) Urine Glucose Trace mg/dL (Normal) Blood Gas Results Test 08/30/24 14:11 08/30/24 16:07 08/30/24 18:12 08/30/24 21:07 Arterial Blood pH 6.973 (7.350-7.450) 7.053 (7.350-7.450) 7.131 (7.350-7.450) 7.313 (7.350-7.450) FiO2 % 100.0 50.0 40.0 40.0 Test 08/31/24 06:30 Arterial Blood pH 7.165 (7.350-7.450) FiO2 % 40.0 Microbiology Microbiology Date/Time Source Procedure Growth Status 08/29/24 18:35 Nose MRSA Screen - Final Complete 08/29/24 14:09 Blood Blood Culture - Preliminary NO GROWTH AFTER 24 HOURS OF INCUBATION. Resulted Assessment/Plan Assessment/Plan Acute hypoxic respiratory failure status post intubated in [place], on 40 % FiO2 Dr. 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 Quinteros Takotsubo syndrome by left heart catheterization by Dr. Quinteros on 08/29/2024, normal coronaries Type 2 diabetes Hypertension Shock liver with elevated AST and ALT: Consult for GI Dr. Galdino Zafar Acute kidney injury with elevated BUN and creatinine: Consult for Unequal pupils: Consult by Neurology Dr. Bautista appreciated CT head negative Cardiomyopathy with ejection fraction 28 percent possibly secondary to drug abuse Time Spent 70 minutes Advanced care planning time 20 minutes Patient is full code GI prophylaxis: Pantoprazole DVT prophylaxis SCDs Condition critical Patient's niece Sarah [phone] called and made the patient DNR Code status DNR Plan discussed with: Patient My Orders Orders - JAYLEEN WATSON MD Procedure Category Date Status Time Chest Portable XY 08/30/24 Resulted 10:[address] 08/30/24 Resulted 10:32 *Consult CONS 08/30/24 Transmitted / 10:59 * Neurology Consult CONS 08/30/24 Transmitted 11:00 Norepinephrine 8 PHA 08/30/24 In Process Mg/250ml Kit 11:00 Phenylephrine Iv PHA 08/30/24 In Process (Phenylephrine/Ns) 11:00 Midazolam Drip 50 PHA 08/30/24 In Process Mg/50ml (Versed Drip 5 11:00 Fentanyl Drip PHA 08/30/24 In Process 2500mcg/250mlns 11:00 Rass Sedation Scale ROZ 08/30/24 In Process 11:00 Communication Order ORDERS 08/30/24 Transmitted 11:03 Transfer Orders XFER 08/30/24 Transmitted 11:03 Epinephrine Hcl PHA 08/30/24 In Process 15:00 Sodium Chl 0.9% PHA 08/30/24 In Process (So... W/Vasopressin 18:45 Chest Xray 1 View XY 08/31/24 Resulted 04:00 Date of Service: Aug 31, 2024 Billing Provider: JAYLEEN WATSON MD Common Visit Codes: [id number] CARE 30-74 MIN, [id number] CARE-EACH +30MIN JAYLEEN WATSON MD Aug 31, 2024 08:19
--- NOTE | 2024-08-31 09:06 | DVHINCON2 ---
Date of service: Aug 31, [address] Marie Reason for Consultation Acute kidney injury History of Present Illness Patient is 59-year-old female with past medical history of hypertension and diabetes mellitus type 2 transferred from [facility] for diagnosed STEMI and incarcerated umbilical hernia. Patient was transported via EMS, cardiology consultation was done. Patient has been taken to [facility] for evaluation of coronary arteries. Patient currently intubated on the ventilator on maximum IV pressors for blood pressure support nephrology is consulted for acute kidney injury Past Medical History Diabetes mellitus hypertension Past Surgical History PTCA Allergies: Coded Allergies: Sulfa Antibiotics (Verified Allergy, Severe, 10/18/22) Morphine (Verified Allergy, Unknown, 04/29/15) Uncoded Allergies: OPIODS (Allergy, Unknown, 04/29/15) Home Meds Active Scripts Nitrofurantoin Monohydrate Mac (Macrobid) 100 Mg Cap, 100 MG PO BID for 7 Days, #14 CAP Prov:NUVIA TRENT MD 10/19/22 Current Medications Current Medications Medications (Trade) Dose Ordered Sig/Wayne Route PRN Reason Start Time Stop Time Status Last Admin Norepinephrine Bitartrate 250 ml @ 3.75 mls/hr Q24H IV 08/30/24 11:00 08/31/24 07:13 Phenylephrine HCl 250 ml @ 30 mls/hr Q8H20M IV 08/30/24 11:00 08/31/24 05:36 Midazolam HCl 50 ml @ 1 mls/hr Q24H IV 08/30/24 11:00 08/31/24 02:56 Fentanyl Citrate 250 ml @ 2.5 mls/hr Q24H IV 08/30/24 11:00 Sodium Bicarbonate 150 ml/Dextrose 1,150 ml @ 100 mls/hr [id number] IV 08/30/24 14:30 08/31/24 01:02 Vasopressin 20 units/Sodium Chloride 100 ml @ 9 mls/hr Q11H7M IV 08/30/24 15:00 08/30/24 18:43 DC Epinephrine HCl 250 ml @ 7.5 mls/hr Q24H IV 08/30/24 15:00 08/30/24 20:51 Vasopressin 20 units/Sodium Chloride 100 ml @ 3 mls/hr Q24H IV 08/30/24 18:45 08/31/24 03:36 Family History: Patient reports no known family medical history. Review of Systems Can not be obtained H&P Exam Vital Signs/I&O Vital Sign Date Time Temp Pulse Resp B/P (MAP) Pulse Ox O2 Delivery O2 Flow Rate FiO2 08/31/24 07:59 152 31 47/40 (42) 96 40 08/31/24 07:45 97.9 208.2 08/31/24 06:00 Mechanical Ventilator+ 08/30/24 20:00 0 Intake and Output 08/30/24 08/31/24 19:00 07:00 Intake Total 1499.25 ml 4757.50 ml Output Total 10 ml 45 ml Balance 1489.25 ml 4712.50 ml IV Total 1499.25 ml 4757.50 ml Output Urine Total 10 ml 45 ml Physical Exam Patient intubated on the ventilator Lungs clear to auscultation bilaterally Cardiac exam tachycardia GI soft nontender Randle catheter Extremities no clubbing cyanosis or edema Neuro patient nonresponsive Labs/Diagnostic Data Labs/Diagnostic Data Laboratory Tests Test 08/31/24 08:06 08/31/24 08:05 08/31/24 06:30 08/31/24 04:10 Range/Units POC Glucose 58 L 46 *L 106 70-106 mg/dl Blood Gas Specimen Type Arterial Blood Gas Sample Site Arterial line Blood Gas Patient Temperature 37.0 Arterial Blood Date Drawn [id number] Arterial Blood pH 7.165 *L 7.350-7.450 Arterial Blood Partial Pressure CO2 25.4 L 32.0-45.0 mmHg Arterial Blood Partial Pressure O2 107.1 83.0-108.0 mmHg Arterial Blood HCO3 9.0 L 21.0-28.0 mmol/L Arterial Blood Oxygen Saturation 96.3 94.0-98.0 % Arterial Blood Base Excess -18.1 L -2.0-3.0 mmol/L Arterial Blood Oxyhemoglobin 95.4 94.0-98.0 % Arterial Blood Carboxyhemoglobin 0.2 L 0.5-1.5 % Arterial Blood Methemoglobin 0.7 0.0-1.5 % Johnny Test N/a Blood Gas Total Hemoglobin 11.00 L 12.0-16.0 g/dL Blood Gas Set Respiration Rate 30.0 Blood Gas Modality Vent - ac FiO2 % 40.0 Blood Gas Tidal Volume 500.0 Blood Gas PEEP or CPAP 8.0 Blood Gas Critical Value Read Back Yes Blood Gas Notified Whom jared Graff md Blood Gas Notified Time [id number] Blood Gas Notified By Wood Block Artist amrita Matias 08/31/24 01:56 08/31/24 00:01 08/30/24 22:56 08/30/24 22:20 Range/Units White Blood Count 15.6 #H 4.4-10.8 10^3/uL Red Blood Count 4.17 4.0-5.20 10^6/uL Hemoglobin 11.6 #L 12.2-16.2 g/dL Hematocrit 35.8 #L 36.0-46.0 % Mean Corpuscular Volume 85.7 # 80.0-100.0 fL Mean Corpuscular Hemoglobin 27.9 L 28.0-32.0 pg Mean Corpuscular Hemoglobin Concent 32.5 32.0-36.0 g/dL Red Cell Distribution Width 14.8 H 11.8-14.3 % Platelet Count 254 140-450 10^3/uL Mean Platelet Volume 9.0 6.9-10.8 fL Neutrophils (%) (Auto) 37.0-80.0 % Lymphocytes (%) (Auto) 10.0-50.0 % Monocytes (%) (Auto) 0.0-12.0 % Basophils (%) (Auto) 0.0-2.0 % Neutrophils # (Auto) 1.6-8.6 10 ^3/uL Lymphocytes # (Auto) 0.4-5.4 10 ^3/uL Monocytes # (Auto) 0-1.3 10 ^3/uL Differential Total Cells Counted 100.0 100 Neutrophils % (Manual) 41 37.0-80.0 Band Neutrophils % (Manual) 36 Lymphocytes % (Manual) 19 10.0-50.0 Monocytes % (Manual) 3 0-12 Eosinophils % (Manual) 0 0-7 Basophils % (Manual) 0 0.0-2.0 Metamyelocytes % (manual) 0 Myelocytes % (Manual) 1 Promyelocytes % (Manual) 0 Blast Cells % (Manual) 0 Reactive Lymphocytes 0 Platelet Estimate Adequate Sodium Level 136 136-145 mmol/L Potassium Level 3.8 3.5-5.1 mmol/L Chloride Level 99 98-107 mmol/L Carbon Dioxide Level 12 L 20-31 mmol/L Anion Gap 25 H 5-15 Blood Urea Nitrogen 60 #H 9-23 mg/dL Creatinine 2.98 H 0.550-1.02 mg/dL Glomerular Filtration Rate Calc 18 >90 mL/min BUN/Creatinine Ratio 20.1 H 10.0-20.0 Serum Glucose 142 H 74-106 mg/dL Calcium Level 6.6 L 8.7-10.4 mg/dL Magnesium Level 2.3 1.6-2.6 mg/dL Total Bilirubin 1.1 H 0.2-1.0 mg/dL Aspartate Amino Transferase (AST) > 6000 H 13-40 U/L Alanine Aminotransferase (ALT) 5966 H 7-40 U/L Alkaline Phosphatase 59 46-116 U/L Total Protein 3.4 L 5.7-8.2 g/dL Albumin 2.1 L 3.2-4.8 g/dL POC Glucose 118 H 70-106 mg/dl Lactic Acid Level 10.3 *H 0.4-2.0 mmol/L Urine Opiates Screen Neg NEGATIVE Urine Fentanyl Screen Neg NEGATIVE Urine Barbiturates Screen Neg NEGATIVE Urine Phencyclidine Screen Neg NEGATIVE Urine Amphetamines Screen Pos NEGATIVE Urine Benzodiazepines Screen Neg NEGATIVE Urine Cocaine Screen Neg NEGATIVE Urine Cannabinoids Screen Neg NEGATIVE Test 08/30/24 21:07 08/30/24 21:00 08/30/24 19:58 08/30/24 18:12 Range/Units Blood Gas Specimen Type Arterial Arterial Blood Gas Sample Site Arterial line Arterial line Blood Gas Patient Temperature 37.0 37.0 Arterial Blood Date Drawn [id number] Arterial Blood pH 7.313 L 7.131 *L 7.350-7.450 Arterial Blood Partial Pressure CO2 25.9 L 28.4 L 32.0-45.0 mmHg Arterial Blood Partial Pressure O2 129.5 H 151.4 H 83.0-108.0 mmHg Arterial Blood HCO3 12.8 L 9.3 L 21.0-28.0 mmol/L Arterial Blood Oxygen Saturation 98.0 98.9 H 94.0-98.0 % Arterial Blood Base Excess -11.6 L -18.5 L -2.0-3.0 mmol/L Arterial Blood Oxyhemoglobin 96.0 97.9 94.0-98.0 % Arterial Blood Carboxyhemoglobin 1.4 0.5 0.5-1.5 % Arterial Blood Methemoglobin 0.6 0.5 0.0-1.5 % Johnny Test N/a N/a Blood Gas Total Hemoglobin 13.10 15.40 12.0-16.0 g/dL Blood Gas Set Respiration Rate 30.0 30.0 Blood Gas Modality Vent - ac Vent - ac Blood Gas Spontaneous Rate 30 30 FiO2 % 40.0 40.0 Blood Gas Tidal Volume 500.0 450.0 Blood Gas PEEP or CPAP 8.0 8.0 Lactic Acid Level 7.9 *H 0.4-2.0 mmol/L POC Glucose 129 H 70-106 mg/dl Blood Gas Critical Value Read Back Yes Blood Gas Notified Whom Dr jared graff Blood Gas Notified Time [id number] Blood Gas Notified By Charlette dorman, team lead Test 08/30/24 17:46 08/30/24 17:25 08/30/24 16:07 08/30/24 14:11 Range/Units Urine Color Light-orange Yellow Urine Clarity Ex.turbid Clear Urine pH 5.5 5.0-9.0 Urine Specific [place] 1.021 1.001-1.035 Urine Protein 2+ H Negative Urine Ketones Trace Negative Urine Blood 2+ H Negative /uL Urine Nitrite Negative Negative Urine Bilirubin Negative Negative Urine Urobilinogen Normal Negative mg/dL Urine Leukocyte Esterase Negative Negative /uL Urine RBC 13 0 - 4 /hpf Urine WBC 10 0 - 5 /hpf Urine Squamous Epithelial Cells Few <5 /hpf Urine Bacteria None seen None Seen /hpf Urine Glucose Trace Normal mg/dL POC Glucose 156 H 70-106 mg/dl Blood Gas Specimen Type Arterial Arterial Blood Gas Sample Site Arterial line Arterial line Blood Gas Patient Temperature 37.0 37.0 Arterial Blood Date Drawn [id number] Arterial Blood pH 7.053 *L 6.973 *L 7.350-7.450 Arterial Blood Partial Pressure CO2 31.4 L 33.2 32.0-45.0 mmHg Arterial Blood Partial Pressure O2 191.8 H 462.1 *H 83.0-108.0 mmHg Arterial Blood HCO3 8.6 L 7.5 L 21.0-28.0 mmol/L Arterial Blood Oxygen Saturation 98.9 H 99.6 H 94.0-98.0 % Arterial Blood Base Excess -20.8 L -23.6 L -2.0-3.0 mmol/L Arterial Blood Oxyhemoglobin 97.6 98.8 H 94.0-98.0 % Arterial Blood Carboxyhemoglobin 1.0 0.3 L 0.5-1.5 % Arterial Blood Methemoglobin 0.3 0.5 0.0-1.5 % Johnny Test Modified Modified Blood Gas Total Hemoglobin 15.20 16.20 H 12.0-16.0 g/dL Blood Gas Set Respiration Rate 26.0 20.0 Blood Gas Modality Vent - ac Vent - ac FiO2 % 50.0 100.0 Blood Gas Tidal Volume 450.0 450.0 Blood Gas PEEP or CPAP 8.0 8.0 Blood Gas Critical Value Read Back Yes Yes Blood Gas Notified Whom surya Del Valle Md, r Blood Gas Notified Time [id number] Blood Gas Notified By Wood Block Artist venkata castillo Wood Block Artist venkata castillo Test 08/30/24 10:43 08/30/24 10:30 08/30/24 08:14 08/30/24 04:11 Range/Units POC Glucose 177 H 223 H 170 H 70-106 mg/dl White Blood Count 23.4 #H 4.4-10.8 10^3/uL Red Blood Count 5.06 4.0-5.20 10^6/uL Hemoglobin 14.1 # 12.2-16.2 g/dL Hematocrit 47.3 H 36.0-46.0 % Mean Corpuscular Volume 93.4 # 80.0-100.0 fL Mean Corpuscular Hemoglobin 28.0 28.0-32.0 pg Mean Corpuscular Hemoglobin Concent 29.9 L 32.0-36.0 g/dL Red Cell Distribution Width 15.3 H 11.8-14.3 % Platelet Count 386 140-450 10^3/uL Mean Platelet Volume 8.6 6.9-10.8 fL Neutrophils (%) (Auto) 78.0 37.0-80.0 % Lymphocytes (%) (Auto) 11.6 10.0-50.0 % Monocytes (%) (Auto) 10.3 0.0-12.0 % Eosinophils (%) (Auto) 0.0 0.0-7.0 % Basophils (%) (Auto) 0.1 0.0-2.0 % Neutrophils # (Auto) 18.2 H 1.6-8.6 10 ^3/uL Lymphocytes # (Auto) 2.7 0.4-5.4 10 ^3/uL Monocytes # (Auto) 2.4 H 0-1.3 10 ^3/uL Eosinophils # (Auto) 0 0-0.8 10 ^3/uL Basophils # (Auto) 0 0-0.2 10 ^3/uL Nucleated Red Blood Cells 0.0 % Prothrombin Time 15.6 H 9.3-11.8 sec Prothrombin Time INR 1.52 H 0.9-1.15 Activated Partial Thromboplast Time 41.6 H 24.5-34.5 SEC D-Dimer, Quantitative 17.76 H 0.0-0.49 mg/L FEU Sodium Level 134 #L 136-145 mmol/L Potassium Level 3.8 3.5-5.1 mmol/L Chloride Level 96 L 98-107 mmol/L Carbon Dioxide Level 10 L 20-31 mmol/L Anion Gap 28 H 5-15 Blood Urea Nitrogen 48 H 9-23 mg/dL Creatinine 2.43 #H 0.550-1.02 mg/dL Glomerular Filtration Rate Calc 22 >90 mL/min BUN/Creatinine Ratio 19.8 10.0-20.0 Serum Glucose 227 H 74-106 mg/dL Hemoglobin A1c 5.7 <5.7 % A1C Calcium Level 9.6 8.7-10.4 mg/dL Magnesium Level 2.8 #H 1.6-2.6 mg/dL Total Bilirubin 0.7 0.2-1.0 mg/dL Aspartate Amino Transferase (AST) 100 H 13-40 U/L Alanine Aminotransferase (ALT) 45 H 7-40 U/L Alkaline Phosphatase 64 46-116 U/L Troponin I High Sensitivity > 86267 *H </=34 ng/L B-Type Natriuretic Peptide > 5000.00 0-100 pg/mL Total Protein 5.1 L 5.7-8.2 g/dL Albumin 3.2 3.2-4.8 g/dL Test 08/29/24 19:48 08/29/24 17:12 08/29/24 10:00 08/29/24 05:30 Range/Units POC Glucose 144 H 190 H 70-106 mg/dl Influenza Type A Antigen Negative Negative Influenza Type B Antigen Negative Negative SARS-CoV-2 Antigen (Rapid) Negative NEGATIVE White Blood Count 31.6 *H 4.4-10.8 10^3/uL Red Blood Count 5.87 H 4.0-5.20 10^6/uL Hemoglobin 16.7 H 12.2-16.2 g/dL Hematocrit 49.1 H 36.0-46.0 % Mean Corpuscular Volume 83.7 80.0-100.0 fL Mean Corpuscular Hemoglobin 28.5 28.0-32.0 pg Mean Corpuscular Hemoglobin Concent 34.1 32.0-36.0 g/dL Red Cell Distribution Width 14.4 H 11.8-14.3 % Platelet Count 413 140-450 10^3/uL Mean Platelet Volume 8.4 6.9-10.8 fL Neutrophils (%) (Auto) 37.0-80.0 % Lymphocytes (%) (Auto) 10.0-50.0 % Monocytes (%) (Auto) 0.0-12.0 % Basophils (%) (Auto) 0.0-2.0 % Neutrophils # (Auto) 1.6-8.6 10 ^3/uL Lymphocytes # (Auto) 0.4-5.4 10 ^3/uL Monocytes # (Auto) 0-1.3 10 ^3/uL Differential Total Cells Counted 100.0 100 Neutrophils % (Manual) 84 H 37.0-80.0 Band Neutrophils % (Manual) 5 Lymphocytes % (Manual) 7 L 10.0-50.0 Monocytes % (Manual) 4 0-12 Eosinophils % (Manual) 0 0-7 Basophils % (Manual) 0 0.0-2.0 Metamyelocytes % (manual) 0 Myelocytes % (Manual) 0 Promyelocytes % (Manual) 0 Blast Cells % (Manual) 0 Reactive Lymphocytes 0 Platelet Estimate Adequate Erythrocyte Sedimentation Rate 1 0-20 mm/hr Prothrombin Time 12.4 H 9.3-11.8 sec Prothrombin Time INR 1.18 H 0.9-1.15 Activated Partial Thromboplast Time 32.2 24.5-34.5 SEC Sodium Level 129 L 136-145 mmol/L Potassium Level 3.7 3.5-5.1 mmol/L Chloride Level 97 L 98-107 mmol/L Carbon Dioxide Level 17 L 20-31 mmol/L Anion Gap 15 5-15 Blood Urea Nitrogen 42 H 9-23 mg/dL Creatinine 1.85 H 0.550-1.02 mg/dL Glomerular Filtration Rate Calc 31 >90 mL/min BUN/Creatinine Ratio 22.7 H 10.0-20.0 Serum Glucose 268 H 74-106 mg/dL Calcium Level 9.2 8.7-10.4 mg/dL Magnesium Level 1.6 1.6-2.6 mg/dL Total Bilirubin 1.6 H 0.2-1.0 mg/dL Aspartate Amino Transferase (AST) 46 H 13-40 U/L Alanine Aminotransferase (ALT) 14 7-40 U/L Alkaline Phosphatase 94 46-116 U/L Troponin I High Sensitivity 98823 *H </=34 ng/L C-Reactive Protein High Sensitivity 7.63 H <1.0 mg/dL Total Protein 6.8 5.7-8.2 g/dL Albumin 4.5 3.2-4.8 g/dL Triglycerides Level 95 < 150 mg/dL Cholesterol Level 153 < 200 mg/dL LDL Cholesterol 67 < 100 mg/dL HDL Cholesterol 66 H 40-59 mg/dL Thyroid Stimulating Hormone (TSH) 0.89 0.55-4.78 uIU/mL Microbiology Date/Time Source Procedure Growth Status 08/29/24 18:35 Nose MRSA Screen - Final Complete Assessment Acute kidney injury superimposed Chronic Kidney Disease secondary hemodynamic mediated Acute respiratory failure, patient intubated on ventilator STEMI status post PTCA 08/29 Septic shock Cardiogenic shock Shock liver Severe metabolic acidosis Hypoglycemia Recommendations Closely monitor fluid and electrolytes Avoid nephrotoxic medications Randle catheter Strict I&Os I agree with IV bicarb drip Maximize IV pressors for blood pressure support Continue IV antibiotics Poor prognosis Patient seen and examined by myself. I discussed my plan of care with the primary nurse at the bedside I would like to thank Dr. Marie for the consult, will follow up Plan discussed with: Other (Nurse) AMBERLY SANDOVAL MD Aug 31, 2024 09:06
--- NOTE | 2024-08-31 09:58 | ECG ---
[facility] Test Date: 2024-08-30 Test Time: 10:16:03 Pat Name: KAREEN MACKENZIE Department: Room: 0265 A Gender: F Delivery Manager: chiara : 1965 Requested By: ALONZO COX Order Number: [id number] Reading MD: Kimberli Schwartz Measurements Intervals [place] Rate: 145 P: 72 TN: 125 QRS: 70 QRSD: 92 T: 28 QT: 262 QTc: 407 Interpretive Statements Sinus tachycardia Extensive anterior infarct, acute (LAD) ST elevation, consider inferior injury Electronically Signed On 09-01-2024 15:35:04 PST by Kimberli Schwartz Please click the below link to view image of tracing.
--- NOTE | 2024-08-31 09:58 | ECG ---
[facility] Test Date: 2024-08-30 Test Time: 11:40:56 Pat Name: KAREEN MACKENZIE Department: Room: 0265 A Gender: F Senior Firewall Engineer: JOEL : 1965 Requested By: ALONZO COX Order Number: [id number] Reading MD: Kimberli Schwartz Measurements Intervals [place] Rate: 130 P: 100 NV: 105 QRS: 80 QRSD: 96 T: 54 QT: 267 QTc: 393 Interpretive Statements Sinus tachycardia Anterolateral infarct, acute (LAD) Electronically Signed On 09-01-2024 15:35:05 PST by Kimberli Schwartz Please click the below link to view image of tracing.
[2024-08-31] MEDS: CALCIUM GLUC 1,000mg/50ml-NS 50 ML IV SCH (10:08)
[2024-08-31 10:45] LABS: Triglycerides 119 mg/dL (< 150)
[2024-08-31 10:46] LABS: LDL Cholesterol 16 mg/dL (< 100)
[2024-08-31 10:48] LABS: Cholesterol < 50.0 mg/dL (< 200)
[2024-08-31 11:13] LABS: HDL Cholesterol 18 mg/dL (40-59)
[2024-08-31] MEDS: AMIODARONE 450mg/250ml AE 250 ML IV SCH ×2 (11:15→16:45)
[2024-08-31] MEDS: HYDROCORTISONE SOD SUCC 100 MG/2ML INJ VIAL IV ONE (11:18)
[2024-08-31] MEDS: AMIODARONE BOLUS KIT 100 ML IV ONE (11:18)
[2024-08-31] MEDS: PHENYLEPHRINE IV 250 ML IV ONE (14:29)
[2024-08-31] MEDS: NOREPINEPHRINE BITARTRATE 32 MG in SODIUM CHL 0.9% 218 ML IV SCH (15:42)
[2024-08-31] MEDS: PHENYLEPHRINE INJ 80 MG in SODIUM CHL 0.9% 242 ML IV SCH (15:46)
--- NOTE | 2024-08-31 16:00 | DVHPN2 ---
Progress Note - Dictate Date Seen: Aug 31, 2024 Medical Necessity Reason Pt with a Central, PICC or Fol: Yes The following are medically ne: Randle Catheter Subjective Patient was seen and evaluated in follow-up in the ICU. Patient is intubated on ventilator. 100% FiO2. Patient hypotensive, hypothermic and unstable with turning. Per RN, patient's family was made aware of patient's poor prognosis. Patient remains DNR at this time. WBC 15.6. UDS returned positive for Amphetamines. vital signs Vital Sign Date Time Temp Pulse Resp B/P (MAP) Pulse Ox O2 Delivery O2 Flow Rate FiO2 08/31/24 13:57 100 08/31/24 12:00 30 Mechanical Ventilator+ 08/31/24 12:00 134 08/31/24 11:41 42/38 (39) 08/31/24 10:47 96.6 205.9 08/31/24 10:02 10 08/31/24 08:00 0 Total Intake and Output 08/30/24 08/30/24 08/31/24 15:00 23:00 07:00 Intake Total 281.25 ml 2511.25 ml 3648.75 ml Output Total 10 ml 45 ml Balance 281.25 ml 2501.25 ml 3603.75 ml medications Current Medications Medications Dose Ordered Sig/Wayne Route Start Time Stop Time Status Last Admin Dose Admin Nitroglycerin 0.4 mg Q5MINP PRN SL 08/29/24 06:00 08/30/24 04:34 0.4 MG Morphine Sulfate 2 mg Q30M PRN IV 08/29/24 06:00 Ondansetron HCl 4 mg Q4HPRN PRN IV 08/29/24 06:00 Pantoprazole Sodium 40 mg DAILY IV 08/29/24 10:00 08/31/24 10:08 40 MG Metoprolol Tartrate 2.5 mg Q6HR IV 08/29/24 12:00 08/30/24 12:02 2.5 MG Metoprolol Tartrate 2.5 mg Q6HR IV 08/29/24 12:00 UNV Enoxaparin Sodium 30 mg DAILY SC 08/29/24 10:00 Hydromorphone HCl 1 mg Q3HPRN PRN IV 08/29/24 07:00 08/30/24 08:11 1 MG Diagnostic Test (Pha) 1 strip IQ4HR 08/29/24 16:00 08/31/24 11:23 1 STRIP Insulin Human Regular IQ4HR SC 08/29/24 16:00 08/30/24 18:39 2 UNITS Dextrose 50 ml UD PRN IV 08/29/24 14:15 08/31/24 08:15 50 ML Norepinephrine Bitartrate 250 ml @ 3.75 mls/hr Q24H IV 08/30/24 11:00 08/31/24 11:23 56.25 MLS/HR Phenylephrine HCl 250 ml @ 30 mls/hr Q8H20M IV 08/30/24 11:00 08/31/24 11:17 135 MLS/HR Midazolam HCl 50 ml @ 1 mls/hr Q24H IV 08/30/24 11:00 08/31/24 02:56 1 MLS/HR Fentanyl Citrate 250 ml @ 2.5 mls/hr Q24H IV 08/30/24 11:00 Sodium Bicarbonate 150 ml/Dextrose 1,150 ml @ 100 mls/hr [id number] IV 08/30/24 14:30 08/31/24 01:02 100 MLS/HR Epinephrine HCl 250 ml @ 7.5 mls/hr Q24H IV 08/30/24 15:00 08/31/24 11:19 37.5 MLS/HR Vasopressin 20 units/Sodium Chloride 100 ml @ 3 mls/hr Q24H IV 08/30/24 18:45 08/31/24 11:17 9 MLS/HR Amiodarone HCl 250 ml @ 16.667 mls/ hr Q15H IV 08/31/24 16:45 Piperacillin Sod/ Tazobactam Sod 100 ml @ 25 mls/hr Q12H IV 08/31/24 17:00 Amiodarone HCl 250 ml @ 33.333 mls/ hr Q7H30M IV 08/31/24 11:15 08/31/24 17:14 objective GENERAL: Intubated on ventilator. LUNGS: Decreased breath sounds. CARDIOVASCULAR: Tachycardia. ABDOMEN: Soft. Slight distention noted. laboratory and microbiology Laboratory Tests 08/31/24 01:56 Test 08/31/24 01:56 Range/Units Serum Glucose 142 H 74-106 mg/dL Problem List Acute ST elevation. Acute pericarditis versus methamphetamine use coronary spasm. Incarcerated hernia. Respiratory failure due to self induced drug overdose. Takotsubo syndrome. Cardiomyopathy. Acute metabolic acidosis. Amphetamine abuse. Septic shock possibly secondary to incarcerated umbilical hernia. Assessment/Plan Continued all current supportive medical care. DVT and GI prophylactics. Dilaudid for pain management. Metoprolol. Vasopressors for hemodynamic support. IV antibiotics as ordered. Additional plan as per the hospital course. Critical care time of 45 minutes provided to include time spent evaluation of patient at bedside, when appropriate patient/family education for diagnosis, treatment plan, review of pertinent medical information and discussion of care with specialty providers and PCP. Mechanical ventilator parameters, treatment and adjustments have personally been reviewed by me and treatment plan by segregator has also been reviewed. Plan discussed with: Other SRI SNEED MD Aug 31, 2024 14:05
[2024-08-31] MEDS: PIPERACILLIN-TAZOB 3.375GM 100 ML IV SCH (16:30)
[2024-08-31 16:34] LABS: Base Excess -24.9 mmol/L (-2.0-3.0)
[2024-08-31 17:04] LABS: Hemoglobin 8.8 g/dL (12.2-16.2); Mean Corpuscular Hemoglobin 27.8 pg (28.0-32.0); Mean Corpuscular Hgb Conc. 30.2 g/dL (32.0-36.0); Mean Corpuscular Volume 91.8 fL (80.0-100.0); Platelet Count (auto) 208 10^3/uL (140-450); Red Blood Cells 3.16 10^6/uL (4.0-5.20); Red Cell Distribution Width 15.6 % (11.8-14.3); White Blood Cell 23.4 10^3/uL (4.4-10.8)
[2024-08-31 17:05] LABS: Basophils % (manual) 0 (0.0-2.0); Blast Cells 0; Eosinophils % (manual) 0 (0-7); Metamyelocytes % 0; Myelocytes % 0; Promyelocytes % 0; Reactive Lymphocytes 0
[2024-08-31 17:10] LABS: Alkaline Phosphatase 113 U/L (46-116); Anion Gap 29.00001 (5-15); BUN/Creatinine Ratio 15.2 (10.0-20.0); Magnesium 2.4 mg/dL (1.6-2.6)
[2024-08-31 17:24] LABS: Albumin 1.9 g/dL (3.2-4.8); Bilirubin, Total 1.3 mg/dL (0.2-1.0); Blood Urea Nitrogen 57 mg/dL (9-23); Calcium 7.2 mg/dL (8.7-10.4); Carbon Dioxide < 10 mmol/L (20-31); Chloride 97 mmol/L (98-107); Glucose 262 mg/dL (74-106); Phosphorus 13.5 mg/dL (2.4-5.1); Sodium 136 mmol/L (136-145)
[2024-08-31 17:25] LABS: Alanine Aminotransferase > 6000 U/L (7-40); Aspartate Aminotransferase > 6000 U/L (13-40)
[2024-08-31] MEDS: EPINEPHrine HCL 250 ML IV ONE (18:17)
[2024-08-31 18:19] LABS: Band Neutrophils % (manual) 18; Lymphocytes % (manual) 10 (10.0-50.0); Monocytes % (manual) 8 (0-12); Platelet Estimate Adequate
[2024-08-31] MEDS: SODIUM BICARB 50mEq/50ml Vial 150 ML in D5W 5% 1,000 ML IV SCH ×2 (18:30→19:30)
[2024-08-31] MEDS: DOPamine 1600MCG/ML D5W 250 ML IV SCH (18:30)
--- NOTE | 2024-08-31 21:16 | DVHPN2 ---
Progress Note - Dictate Date Seen: Aug 31, 2024 Medical Necessity Reason Pt with a Central, PICC or Fol: Yes The following are medically ne: Tavera Catheter Reason for tavera catheter: Strict I&O Subjective Patient seen and examined at bedside. Sedated, intubated on mechanical ventilator. Overnight events reviewed. vital signs Vital Sign Date Time Temp Pulse Resp B/P (MAP) Pulse Ox O2 Delivery O2 Flow Rate FiO2 08/31/24 20:30 96.6 98 30 40/33 (35) 205.9 08/31/24 20:15 63 08/31/24 20:04 35 08/31/24 20:00 Mechanical Ventilator+ 08/31/24 20:00 0 Total Intake and Output 08/30/24 08/30/24 08/31/24 15:00 23:00 07:00 Intake Total 281.25 ml 2511.25 ml 3648.75 ml Output Total 10 ml 45 ml Balance 281.25 ml 2501.25 ml 3603.75 ml medications Current Medications Medications Dose Ordered Sig/Wayne Route Start Time Stop Time Status Last Admin Dose Admin Nitroglycerin 0.4 mg Q5MINP PRN SL 08/29/24 06:00 08/30/24 04:34 0.4 MG Morphine Sulfate 2 mg Q30M PRN IV 08/29/24 06:00 Ondansetron HCl 4 mg Q4HPRN PRN IV 08/29/24 06:00 Pantoprazole Sodium 40 mg DAILY IV 08/29/24 10:00 08/31/24 10:08 40 MG Metoprolol Tartrate 2.5 mg Q6HR IV 08/29/24 12:00 Hold 08/30/24 12:02 2.5 MG Metoprolol Tartrate 2.5 mg Q6HR IV 08/29/24 12:00 UNV Enoxaparin Sodium 30 mg DAILY SC 08/29/24 10:00 Hydromorphone HCl 1 mg Q3HPRN PRN IV 08/29/24 07:00 08/30/24 08:11 1 MG Diagnostic Test (Pha) 1 strip IQ4HR 08/29/24 16:00 08/31/24 20:00 1 STRIP Insulin Human Regular IQ4HR SC 08/29/24 16:00 08/30/24 18:39 2 UNITS Dextrose 50 ml UD PRN IV 08/29/24 14:15 08/31/24 16:07 50 ML Midazolam HCl 50 ml @ 1 mls/hr Q24H IV 08/30/24 11:00 08/31/24 02:56 1 MLS/HR Fentanyl Citrate 250 ml @ 2.5 mls/hr Q24H IV 08/30/24 11:00 Epinephrine HCl 250 ml @ 7.5 mls/hr Q24H IV 08/30/24 15:00 08/31/24 11:19 37.5 MLS/HR Vasopressin 20 units/Sodium Chloride 100 ml @ 3 mls/hr Q24H IV 08/30/24 18:45 08/31/24 11:17 9 MLS/HR Amiodarone HCl 250 ml @ 16.667 mls/ hr Q15H IV 08/31/24 16:45 Piperacillin Sod/ Tazobactam Sod 100 ml @ 25 mls/hr Q12H IV 08/31/24 17:00 08/31/24 16:30 25 MLS/HR Phenylephrine HCl 80 mg/Sodium Chloride 250 ml @ 7.5 mls/hr Q24H IV 08/31/24 14:15 08/31/24 15:46 33.75 MLS/HR Norepinephrine Bitartrate 32 mg/ Sodium Chloride 250 ml @ 0.938 mls/ hr Q24H IV 08/31/24 15:00 08/31/24 15:42 14.063 MLS/HR Dopamine HCl/ Dextrose 250 ml @ 12.356 mls/ hr [id number] IV 08/31/24 18:30 08/31/24 18:30 12.356 MLS/HR Sodium Bicarbonate 150 ml/Dextrose 1,150 ml @ 100 mls/hr [id number] IV 08/31/24 18:30 Hydrocortisone Sodium Succinate 100 mg Q8HR IV 08/31/24 22:00 Sodium Bicarbonate 150 ml/Dextrose 1,150 ml @ 150 mls/hr Q7H40M IV 08/31/24 19:30 08/31/24 19:30 150 MLS/HR objective Gen.: Patient lying in bed in medical ICU. Sedated, intubated on mechanical ventilator. Head: Normocephalic, atraumatic. Eyes: PERRLA. Ears: Normal external anatomy. Throat: Endotracheal tube and orogastric tube in place. Neck: Supple, trachea midline. Chest: Transmitted breath sounds bilaterally. Decreased air entry bilaterally. No wheezing. Bibasilar crackles. Cardiovascular: Positive S1, positive S2. Regular rate and rhythm. Abdomen: Positive bowel sounds in all 4 quadrants. Soft, nontender, nondistended. : Tavera in place. Normal external genitalia. Rectal: Deferred. Skin: Warm, dry. Intact. Extremities: 2+ radial pulses bilaterally. No lower extremity edema. Neuro: Sedated. laboratory and microbiology Laboratory Tests 08/31/24 16:33 Test 08/31/24 16:33 Range/Units Serum Glucose 262 H 74-106 mg/dL Assessment/Plan Impression: Acute hypoxic respiratory failure On mechanical ventilator Non-ST elevation myocardial infarction Substance abuse Acute metabolic encephalopathy Events: Remains on vent support Vent settings; A/C mode with RR 30, VT 500, PEEP 8, FiO2 35% Patient on multiple pressors for hemodynamic support On dopamine, Levophed, vasopressin, Nilson-synephrine Titrate to keep MAP above 65 mmHg/SBP above 90 mmHg. Sedated on Versed. ABG reviewed, notable for acidemia. Severe metabolic + lactic acidosis On bicarb drip w/ 3 amps at 100 ml/hr. Increase rate to 150 ml/hr. Continue antibiotics Stress dose steroids Off amiodarone drip. Multiorgan failure Poor prognosis. Labs and imaging reviewed. Rest of plan as noted below. Plan: s/p intubation on mechanical ventilator ABG reviewed, notable for acidemia. Vent settings; A/C mode with RR 30, VT 500, PEEP 8, FiO2 35% Titrate FIO2 to keep O2 saturation above 92%. VAP bundle Daily ABG and CXR while intubated. Sedate for ventilatory synchrony Pressors for hemodynamic support. Titrate to keep MAP above 65 mmHg/SBP above 90 mmHg. Continue antibiotics. F/u cultures. Monitor renal function due to Acute kidney injury. Monitor electrolytes. Supplement as necessary. Monitor ins and outs Nutritional support. Accu-Cheks, ISS. GI/DVT prophylaxis. Condition: Critical Prognosis: Poor given multiple comorbidities. Rest of plan per hospitalist and other consultants. A total of 35 minutes of critical care time was spent reviewing the patient record, examining the patient, making a diagnostic and therapeutic plan, discussing this plan with the medical personnel, following up on diagnostic studies and following the patient for clinical stability excluding any and all procedures. At least 50% of this time was spent in direct, [id number] contact. Thank you, Dr. Marie, for allowing me to participate in this patient's care. Further recommendations will depend on patient's clinical course. Please do not hesitate to contact me if you have any questions or concerns. This medical document was created using an electronic medical record system with [employer] dictation system. Although this document has been carefully reviewed, there may still be some phonetic and typographical errors. These areas are purely typographical due to imperfections of the software programs, and do not reflect any compromise in the patient's medical care. Plan discussed with: Other (STEFFEN Doll) Critical Care Time(min): 35 MARGA JONES MD Aug 31, 2024 21:16
[2024-08-31] MEDS: HYDROCORTISONE SOD SUCC 100 MG/2ML INJ VIAL IV SCH (21:59)
--- NOTE | 2024-08-31 22:23 | DVHINCON2 ---
Date of service: Aug 31, 2024 Referring Physician Jayleen lynn Reason for Consultation Elevated liver enzymes and shock liver History of Present Illness Patient is a 59-year-old lady who presented to [facility] with the acute ST-elevation myocardial infarction. Patient has a history of amphetamine use She was referred here for cardiac catheterization. Patient's had an angiogram done on the This patient suspected to have Takotsubo syndrome. The patient has the whole anterior wall, apical wall and apical inferior wall have become remarkably hypokinetic and dilated. Ejection fraction was 30% * The coronary arteries are all widely open. No stenosis, no spasm, no dissection and no thrombus. * Circumflex artery is a large luminal artery. Patient coded on the floor yesterday and required multiple attempts at resuscitation Currently she is admitted to [facility] intubated. Patient is altered and she has severe hypotension requiring multiple pressors and hypoxemia Patient was noted to have a [id number] elevation in liver enzymes today suspected to have shock liver for which GI was consulted I was informed by the nurse that patient has been made DNR due to expected poor prognosis Past Medical History Past Medical History Hypertension, diabetes mellitus type 2 Incarcerated hernia Past Surgical History Past Surgical History ?Exploratory abdominal/unknown surgery. Family History: Patient reports no known family medical history. Allergies: Coded Allergies: Sulfa Antibiotics (Verified Allergy, Severe, 10/18/22) Morphine (Verified Allergy, Unknown, 04/29/15) Uncoded Allergies: OPIODS (Allergy, Unknown, 04/29/15) Home Meds Active Scripts Nitrofurantoin Monohydrate Mac (Macrobid) 100 Mg Cap, 100 MG PO BID for 7 Days, #14 CAP Prov:NUVIA TRENT MD 10/19/22 Current Medications Current Medications Medications (Trade) Dose Ordered Sig/Wayne Route PRN Reason Start Time Stop Time Status Last Admin Calcium Gluconate/ Sodium Chloride 50 ml @ 100 mls/hr Q30M IV 08/31/24 09:15 08/31/24 10:44 DC 08/31/24 15:02 Amiodarone HCl 250 ml @ 16.667 mls/ hr Q15H IV 08/31/24 16:45 Piperacillin Sod/ Tazobactam Sod 100 ml @ 25 mls/hr Q12H IV 08/31/24 17:00 08/31/24 16:30 Amiodarone HCl 250 ml @ 33.333 mls/ hr Q7H30M IV 08/31/24 11:15 08/31/24 17:14 DC Phenylephrine HCl 80 mg/Sodium Chloride 250 ml @ 7.5 mls/hr Q24H IV 08/31/24 14:15 08/31/24 15:46 Norepinephrine Bitartrate 32 mg/ Sodium Chloride 250 ml @ 0.938 mls/ hr Q24H IV 08/31/24 15:00 08/31/24 15:42 Dopamine HCl/ Dextrose 250 ml @ 12.356 mls/ hr [id number] IV 08/31/24 18:30 08/31/24 18:30 Sodium Bicarbonate 150 ml/Dextrose 1,150 ml @ 100 mls/hr [id number] IV 08/31/24 18:30 Hydrocortisone Sodium Succinate (Solu-CORTEF INJECTION) 100 mg Q8HR IV 08/31/24 22:00 08/31/24 21:59 Sodium Bicarbonate 150 ml/Dextrose 1,150 ml @ 150 mls/hr Q7H40M IV 08/31/24 19:30 08/31/24 19:30 Vital Signs Vital Signs Date Time Temp Pulse Resp B/P (MAP) Pulse Ox O2 Delivery O2 Flow Rate FiO2 08/31/24 21:45 96.6 101 30 38/32 (34) 205.9 08/31/24 20:45 55 08/31/24 20:04 35 08/31/24 20:00 Mechanical Ventilator+ 08/31/24 20:00 0 Physical Exam GENERAL: Intubated on ventilator. LUNGS: Decreased breath sounds. Hypoxemia O2 sat 75% CARDIOVASCULAR: Moderate Tachycardia. Hypotensive ABDOMEN: Soft. Slight distention noted. Labs/Diagnostic Data Labs Test 08/31/24 20:08 08/31/24 16:33 08/31/24 16:25 08/31/24 01:56 Range/Units POC Glucose 144 H 70-106 mg/dl White Blood Count 23.4 #H 4.4-10.8 10^3/uL Red Blood Count 3.16 L 4.0-5.20 10^6/uL Hemoglobin 8.8 #L 12.2-16.2 g/dL Hematocrit 29.0 #L 36.0-46.0 % Mean Corpuscular Volume 91.8 # 80.0-100.0 fL Mean Corpuscular Hemoglobin 27.8 L 28.0-32.0 pg Mean Corpuscular Hemoglobin Concent 30.2 L 32.0-36.0 g/dL Red Cell Distribution Width 15.6 H 11.8-14.3 % Platelet Count 208 140-450 10^3/uL Mean Platelet Volume 9.4 6.9-10.8 fL Neutrophils (%) (Auto) 37.0-80.0 % Lymphocytes (%) (Auto) 10.0-50.0 % Monocytes (%) (Auto) 0.0-12.0 % Basophils (%) (Auto) 0.0-2.0 % Neutrophils # (Auto) 1.6-8.6 10 ^3/uL Lymphocytes # (Auto) 0.4-5.4 10 ^3/uL Monocytes # (Auto) 0-1.3 10 ^3/uL Differential Total Cells Counted 100.0 100 Neutrophils % (Manual) 64 37.0-80.0 Band Neutrophils % (Manual) 18 Lymphocytes % (Manual) 10 10.0-50.0 Monocytes % (Manual) 8 0-12 Eosinophils % (Manual) 0 0-7 Basophils % (Manual) 0 0.0-2.0 Metamyelocytes % (manual) 0 Myelocytes % (Manual) 0 Promyelocytes % (Manual) 0 Blast Cells % (Manual) 0 Reactive Lymphocytes 0 Platelet Estimate Adequate Sodium Level 136 136-145 mmol/L Potassium Level 5.0 3.5-5.1 mmol/L Chloride Level 97 L 98-107 mmol/L Carbon Dioxide Level < 10 *L 20-31 mmol/L Anion Gap 29.21132 H 5-15 Blood Urea Nitrogen 57 H 9-23 mg/dL Creatinine 3.74 H 0.550-1.02 mg/dL Glomerular Filtration Rate Calc 13 >90 mL/min BUN/Creatinine Ratio 15.2 10.0-20.0 Serum Glucose 262 H 74-106 mg/dL Calcium Level 7.2 L 8.7-10.4 mg/dL Phosphorus Level 13.5 H 2.4-5.1 mg/dL Magnesium Level 2.4 1.6-2.6 mg/dL Total Bilirubin 1.3 H 0.2-1.0 mg/dL Aspartate Amino Transferase (AST) > 6000 H 13-40 U/L Alanine Aminotransferase (ALT) > 6000 H 7-40 U/L Alkaline Phosphatase 113 46-116 U/L Total Protein 3.0 L 5.7-8.2 g/dL Albumin 1.9 L 3.2-4.8 g/dL Blood Gas Specimen Type Arterial Blood Gas Sample Site Arterial line Blood Gas Patient Temperature 37.0 Arterial Blood Date Drawn [id number] Arterial Blood pH 6.964 *L 7.350-7.450 Arterial Blood Partial Pressure CO2 24.3 L 32.0-45.0 mmHg Arterial Blood Partial Pressure O2 477.0 *H 83.0-108.0 mmHg Arterial Blood HCO3 5.4 L 21.0-28.0 mmol/L Arterial Blood Oxygen Saturation 99.1 H 94.0-98.0 % Arterial Blood Base Excess -24.9 L -2.0-3.0 mmol/L Arterial Blood Oxyhemoglobin 98.4 H 94.0-98.0 % Arterial Blood Carboxyhemoglobin 0.2 L 0.5-1.5 % Arterial Blood Methemoglobin 0.5 0.0-1.5 % Johnny Test Modified Blood Gas Total Hemoglobin 9.80 L 12.0-16.0 g/dL Blood Gas Set Respiration Rate 30.0 Blood Gas Modality Vent - ac FiO2 % 100.0 Blood Gas Tidal Volume 500.0 Blood Gas PEEP or CPAP 8.0 Blood Gas Critical Value Read Back Yes Blood Gas Notified Whom jared Graff md Blood Gas Notified Time [id number] Blood Gas Notified By Edge Beader amrita schuster Triglycerides Level 119 < 150 mg/dL Cholesterol Level < 50.0 < 200 mg/dL LDL Cholesterol 16 < 100 mg/dL HDL Cholesterol 18 L 40-59 mg/dL Test 08/30/24 22:56 08/30/24 22:20 08/30/24 21:07 08/30/24 17:46 Range/Units Lactic Acid Level 10.3 *H 0.4-2.0 mmol/L Urine Opiates Screen Neg NEGATIVE Urine Fentanyl Screen Neg NEGATIVE Urine Barbiturates Screen Neg NEGATIVE Urine Phencyclidine Screen Neg NEGATIVE Urine Amphetamines Screen Pos NEGATIVE Urine Benzodiazepines Screen Neg NEGATIVE Urine Cocaine Screen Neg NEGATIVE Urine Cannabinoids Screen Neg NEGATIVE Blood Gas Spontaneous Rate 30 Urine Color Light-orange Yellow Urine Clarity Ex.turbid Clear Urine pH 5.5 5.0-9.0 Urine Specific [place] 1.021 1.001-1.035 Urine Protein 2+ H Negative Urine Ketones Trace Negative Urine Blood 2+ H Negative /uL Urine Nitrite Negative Negative Urine Bilirubin Negative Negative Urine Urobilinogen Normal Negative mg/dL Urine Leukocyte Esterase Negative Negative /uL Urine RBC 13 0 - 4 /hpf Urine WBC 10 0 - 5 /hpf Urine Squamous Epithelial Cells Few <5 /hpf Urine Bacteria None seen None Seen /hpf Urine Glucose Trace Normal mg/dL Test 08/30/24 10:30 08/29/24 10:00 08/29/24 05:30 Range/Units Eosinophils (%) (Auto) 0.0 0.0-7.0 % Eosinophils # (Auto) 0 0-0.8 10 ^3/uL Basophils # (Auto) 0 0-0.2 10 ^3/uL Nucleated Red Blood Cells 0.0 % Prothrombin Time 15.6 H 9.3-11.8 sec Prothrombin Time INR 1.52 H 0.9-1.15 Activated Partial Thromboplast Time 41.6 H 24.5-34.5 SEC D-Dimer, Quantitative 17.76 H 0.0-0.49 mg/L FEU Hemoglobin A1c 5.7 <5.7 % A1C Troponin I High Sensitivity > 82941 *H </=34 ng/L B-Type Natriuretic Peptide > 5000.00 0-100 pg/mL Influenza Type A Antigen Negative Negative Influenza Type B Antigen Negative Negative SARS-CoV-2 Antigen (Rapid) Negative NEGATIVE Erythrocyte Sedimentation Rate 1 0-20 mm/hr C-Reactive Protein High Sensitivity 7.63 H <1.0 mg/dL Thyroid Stimulating Hormone (TSH) 0.89 0.55-4.78 uIU/mL Microbiology Date/Time Source Procedure Growth Status 08/30/24 10:19 Sputum Gram Stain - Final Resulted 08/30/24 10:19 Sputum Respiratory Culture - Preliminary Resulted 08/29/24 18:35 Nose MRSA Screen - Final Complete 08/29/24 14:09 Blood Blood Culture - Preliminary NO GROWTH AFTER 48 HOURS OF INCUBATION. Resulted SBFT X RAY FINDINGS/IMPRESSION: Initial high school professional view of the abdomen and pelvis appears demonstrates no acute process. Contrast is identified within the colon by 6. This represents a delayed appearance of the left colon. CT SCAN ABD PELVIS AT [facility] [place] CT abdomen pelvis showed a large left umbilical hernia defect containing loops of small bowel, findings suspicious for early or developing small bowel obstruction secondary to incarceration. CXR IMPRESSION: Enteric tube tip is likely just beyond the gastroesophageal junction, consider advancement of approximately 5 cm for ideal positioning. Endotracheal tube and right IJ catheter appears satisfactory position. Heart appears stable in size. The lungs appear clear without focal airspace opacity, effusion, or pneumothorax. Problems(with codes): (1) Cardiopulmonary arrest with successful resuscitation (2) Shock liver (3) Hypotension (4) Elevated liver enzymes (5) Elevated troponin (6) Acute ST elevation myocardial infarction (STEMI) (7) Chest pain (8) Abdominal pain (9) Diarrhea (10) Bilateral lower leg cellulitis (11) Amphetamine use (12) Umbilical hernia (13) Leukocytosis Plan/Recommendation Assessment plan Likely the patient has marked elevation liver enzymes are related to hypoxic liver injury or shock liver Continue IV fluid hydration Continue pressor support Patient is on IV antibiotics Overall prognosis is very poor and patient is DNR We will continue to monitor labs pending her clinical stabilization Check repeat hepatic panel, hepatitis panel and a liver ultrasound when the patient is more stable Plan discussed with: Other ([facility] NURSE AND DR JAYLEEN LYNN) RYLIE ORTIZ MD Aug 31, 2024 22:23
[2024-09-01] VITALS (73 sets, daily range): BP systolic 33–98; BP diastolic 29–65; PULSE 46–100; RESP 0–30; TEMP 96.6–98.1; O2SAT 53–83
--- NOTE | 2024-09-01 04:47 | DVH ---
CHEST RADIOGRAPH Indication: Intubated Technique: Single frontal view of the chest was obtained Comparison: XY CHEST XRAY 1 VIEW on DOS: 08/31/24 FINDINGS: Lines and Tubes: The endotracheal tube terminates 3.9 cm above the kendra. Right central venous cath eter terminates in the superior vena cava. The enteric tube terminates below the left hemidiaphragm i n the region of the proximal stomach. Lungs: No focal consolidation. Pleura: No effusion. No pneumothorax. Cardiomediastinal contours: Unremarkable Bones: No acute osseous abnormality. IMPRESSION: 1. No acute cardiopulmonary disease.
[2024-09-01 05:29] LABS: Hematocrit 31.3 % (36.0-46.0); Red Cell Distribution Width 15.8 % (11.8-14.3)
[2024-09-01 05:33] LABS: Hemoglobin 9.7 g/dL (12.2-16.2); Mean Corpuscular Hemoglobin 28.1 pg (28.0-32.0); Mean Corpuscular Hgb Conc. 30.9 g/dL (32.0-36.0); Mean Corpuscular Volume 90.9 fL (80.0-100.0); Platelet Count (auto) 201 10^3/uL (140-450); Red Blood Cells 3.45 10^6/uL (4.0-5.20)
[2024-09-01 05:40] LABS: White Blood Cell 31.9 10^3/uL (4.4-10.8)
[2024-09-01 05:42] LABS: Basophils % (manual) 0 (0.0-2.0); Blast Cells 0; Eosinophils % (manual) 0 (0-7); Myelocytes % 0; Promyelocytes % 0; Reactive Lymphocytes 0
[2024-09-01 08:35] LABS: Base Excess -21.7 mmol/L (-2.0-3.0)
--- NOTE | 2024-09-01 10:37 | DVHPN2 ---
Progress Note Date Seen: Sep 01, 2024 Medical Necessity Reason Pt with a Central, PICC or Fol: Yes The following are medically ne: Tavera Catheter Reason for tavera catheter: Strict I&O Objective vital signs Vital Sign Date Time Temp Pulse Resp B/P (MAP) Pulse Ox O2 Delivery O2 Flow Rate FiO2 09/01/24 07:03 97 30 37/33 (34) 35 09/01/24 06:45 97.2 207.0 09/01/24 06:00 53 09/01/24 06:00 Mechanical Ventilator+ 08/31/24 20:00 0 Total Intake and Output 08/31/24 08/31/24 09/01/24 14:59 22:59 06:59 Intake Total 2768.50 ml 2100.088 ml 2459.650 ml Output Total 30 ml 20 ml Balance 2768.50 ml 2070.088 ml 2439.650 ml medications Current Medications Medications Dose Ordered Sig/Wayne Route Start Time Stop Time Status Last Admin Dose Admin Nitroglycerin 0.4 mg Q5MINP PRN SL 08/29/24 06:00 08/30/24 04:34 0.4 MG Morphine Sulfate 2 mg Q30M PRN IV 08/29/24 06:00 Ondansetron HCl 4 mg Q4HPRN PRN IV 08/29/24 06:00 Pantoprazole Sodium 40 mg DAILY IV 08/29/24 10:00 08/31/24 10:08 40 MG Metoprolol Tartrate 2.5 mg Q6HR IV 08/29/24 12:00 Hold 08/30/24 12:02 2.5 MG Metoprolol Tartrate 2.5 mg Q6HR IV 08/29/24 12:00 UNV Enoxaparin Sodium 30 mg DAILY SC 08/29/24 10:00 Hydromorphone HCl 1 mg Q3HPRN PRN IV 08/29/24 07:00 08/30/24 08:11 1 MG Diagnostic Test (Pha) 1 strip IQ4HR 08/29/24 16:00 09/01/24 08:11 1 STRIP Insulin Human Regular IQ4HR SC 08/29/24 16:00 09/01/24 08:20 6 UNITS Dextrose 50 ml UD PRN IV 08/29/24 14:15 08/31/24 16:07 50 ML Midazolam HCl 50 ml @ 1 mls/hr Q24H IV 08/30/24 11:00 08/31/24 02:56 1 MLS/HR Fentanyl Citrate 250 ml @ 2.5 mls/hr Q24H IV 08/30/24 11:00 Epinephrine HCl 250 ml @ 7.5 mls/hr Q24H IV 08/30/24 15:00 08/31/24 23:00 37.5 MLS/HR Vasopressin 20 units/Sodium Chloride 100 ml @ 3 mls/hr Q24H IV 08/30/24 18:45 09/01/24 02:00 9 MLS/HR Amiodarone HCl 250 ml @ 16.667 mls/ hr Q15H IV 08/31/24 16:45 Piperacillin Sod/ Tazobactam Sod 100 ml @ 25 mls/hr Q12H IV 08/31/24 17:00 09/01/24 05:12 25 MLS/HR Phenylephrine HCl 80 mg/Sodium Chloride 250 ml @ 7.5 mls/hr Q24H IV 08/31/24 14:15 08/31/24 23:15 33.75 MLS/HR Norepinephrine Bitartrate 32 mg/ Sodium Chloride 250 ml @ 0.938 mls/ hr Q24H IV 08/31/24 15:00 09/01/24 08:13 14.063 MLS/HR Dopamine HCl/ Dextrose 250 ml @ 12.356 mls/ hr [id number] IV 08/31/24 18:30 09/01/24 02:00 49.425 MLS/HR Sodium Bicarbonate 150 ml/Dextrose 1,150 ml @ 100 mls/hr [id number] IV 08/31/24 18:30 Hydrocortisone Sodium Succinate 100 mg Q8HR IV 08/31/24 22:00 09/01/24 05:13 100 MG Sodium Bicarbonate 150 ml/Dextrose 1,150 ml @ 150 mls/hr Q7H40M IV 08/31/24 19:30 09/01/24 08:12 150 MLS/HR laboratory and microbiology Laboratory Tests 09/01/24 04:50 Test 09/01/24 04:50 Range/Units Serum Glucose Pending Problem List/Assessment/Plan Problem List/Assessment/Plan 09/01/24 intubated, sedarted, abdomen non distended, hernias easily reducible, no indication for emergency surgical intervention, will sign off, please recall if needed Plan discussed with: Patient RENATO NAJERA MD Sep 01, 2024 10:37
--- NOTE | 2024-09-01 10:44 | DVHPN2 ---
Progress Note Date Seen: Sep 01, 2024 Medical Necessity Reason Pt with a Central, PICC or Fol: Yes The following are medically ne: Central Line, Tavera Catheter Reason for tavera catheter: Strict I&O Subjective Patient reports: Feels worse Review of Systems: HEENT:Abnormal, CVS:Abnormal, RESPIRATORY:Abnormal, GI:Abnormal Objective vital signs Vital Sign Date Time Temp Pulse Resp B/P (MAP) Pulse Ox O2 Delivery O2 Flow Rate FiO2 09/01/24 07:03 97 30 37/33 (34) 35 09/01/24 06:45 97.2 207.0 09/01/24 06:00 53 09/01/24 06:00 Mechanical Ventilator+ 08/31/24 20:00 0 Total Intake and Output 08/31/24 08/31/24 09/01/24 15:00 23:00 07:00 Intake Total 2923.50 ml 2054.263 ml 2165.975 ml Output Total 30 ml 20 ml Balance 2923.50 ml 2024.263 ml 2145.975 ml medications Current Medications Medications Dose Ordered Sig/Wayne Route Start Time Stop Time Status Last Admin Dose Admin Nitroglycerin 0.4 mg Q5MINP PRN SL 08/29/24 06:00 08/30/24 04:34 0.4 MG Morphine Sulfate 2 mg Q30M PRN IV 08/29/24 06:00 Ondansetron HCl 4 mg Q4HPRN PRN IV 08/29/24 06:00 Pantoprazole Sodium 40 mg DAILY IV 08/29/24 10:00 08/31/24 10:08 40 MG Metoprolol Tartrate 2.5 mg Q6HR IV 08/29/24 12:00 Hold 08/30/24 12:02 2.5 MG Metoprolol Tartrate 2.5 mg Q6HR IV 08/29/24 12:00 UNV Enoxaparin Sodium 30 mg DAILY SC 08/29/24 10:00 Hydromorphone HCl 1 mg Q3HPRN PRN IV 08/29/24 07:00 08/30/24 08:11 1 MG Diagnostic Test (Pha) 1 strip IQ4HR 08/29/24 16:00 09/01/24 08:11 1 STRIP Insulin Human Regular IQ4HR SC 08/29/24 16:00 09/01/24 08:20 6 UNITS Dextrose 50 ml UD PRN IV 08/29/24 14:15 08/31/24 16:07 50 ML Midazolam HCl 50 ml @ 1 mls/hr Q24H IV 08/30/24 11:00 08/31/24 02:56 1 MLS/HR Fentanyl Citrate 250 ml @ 2.5 mls/hr Q24H IV 08/30/24 11:00 Epinephrine HCl 250 ml @ 7.5 mls/hr Q24H IV 08/30/24 15:00 08/31/24 23:00 37.5 MLS/HR Vasopressin 20 units/Sodium Chloride 100 ml @ 3 mls/hr Q24H IV 08/30/24 18:45 09/01/24 02:00 9 MLS/HR Amiodarone HCl 250 ml @ 16.667 mls/ hr Q15H IV 08/31/24 16:45 Piperacillin Sod/ Tazobactam Sod 100 ml @ 25 mls/hr Q12H IV 08/31/24 17:00 09/01/24 05:12 25 MLS/HR Phenylephrine HCl 80 mg/Sodium Chloride 250 ml @ 7.5 mls/hr Q24H IV 08/31/24 14:15 08/31/24 23:15 33.75 MLS/HR Norepinephrine Bitartrate 32 mg/ Sodium Chloride 250 ml @ 0.938 mls/ hr Q24H IV 08/31/24 15:00 09/01/24 08:13 14.063 MLS/HR Dopamine HCl/ Dextrose 250 ml @ 12.356 mls/ hr [id number] IV 08/31/24 18:30 09/01/24 02:00 49.425 MLS/HR Sodium Bicarbonate 150 ml/Dextrose 1,150 ml @ 100 mls/hr [id number] IV 08/31/24 18:30 Hydrocortisone Sodium Succinate 100 mg Q8HR IV 08/31/24 22:00 09/01/24 05:13 100 MG Sodium Bicarbonate 150 ml/Dextrose 1,150 ml @ 150 mls/hr Q7H40M IV 08/31/24 19:30 09/01/24 08:12 150 MLS/HR Fentanyl Citrate 250 ml @ 2.5 mls/hr Q24H IV 09/01/24 10:45 UNV Examination: GENERAL:Abnormal, HEENT:Abnormal, NECK:Abnormal, LUNGS:Abnormal, ABDOMEN:Abnormal laboratory and microbiology Laboratory Tests 09/01/24 04:50 Test 09/01/24 04:50 Range/Units Serum Glucose Pending Microbiology Date/Time Source Procedure Growth Status 08/30/24 10:19 Sputum Gram Stain - Final Resulted 08/30/24 10:19 Respiratory Culture - Preliminary Presumptive Milli albicans Resulted 08/29/24 18:35 Nose MRSA Screen - Final Complete 08/29/24 14:09 Blood Blood Culture - Preliminary NO GROWTH AFTER 48 HOURS OF INCUBATION. Resulted Problem List/Assessment/Plan Problem List/Assessment/Plan Acute kidney injury in setting of shock renal function at baseline normal Acute respiratory failure, patient intubated on ventilator STEMI status post PTCA 08/29 Septic shock Cardiogenic shock Shock liver + methamphetamines Severe metabolic acidosis Hypoglycemia anemia Tavera catheter Strict I&Os IV bicarb drip Maximize IV pressors for blood pressure support Continue IV antibiotics Poor prognosis unstable Plan discussed with: Other Critical Care Time (mins): 40 JELENA DECKER MD Sep 01, 2024 10:44
[2024-09-01] MEDS: fentaNYL Drip 2500mCg/250mlNS 250 ML IV SCH (10:45)
--- NOTE | 2024-09-01 10:48 | DVHPN2 ---
Reviewed: Care Plan, H&P, Labs, Medications, Previous Orders, Radiology Changes from previous H/P or p: No Changes Objective Vitals Vital Signs Date Time Temp Pulse Resp B/P (MAP) Pulse Ox O2 Delivery O2 Flow Rate FiO2 09/01/24 08:45 97 30 98/65 (76) 35 09/01/24 06:45 97.2 207.0 09/01/24 06:00 53 09/01/24 06:00 Mechanical Ventilator+ 08/31/24 20:00 0 Intake/Output Intake and Output 09/01/24 07:00 Intake Total 7143.738 ml Output Total 50 ml Balance 7093.738 ml IV Total 7143.738 ml Output Urine Total 50 ml Medications Current Medications Medications Dose Ordered Sig/Wayne Route Start Time Stop Time Status Last Admin Dose Admin Nitroglycerin 0.4 mg Q5MINP PRN SL 08/29/24 06:00 08/30/24 04:34 0.4 MG Morphine Sulfate 2 mg Q30M PRN IV 08/29/24 06:00 Ondansetron HCl 4 mg Q4HPRN PRN IV 08/29/24 06:00 Pantoprazole Sodium 40 mg DAILY IV 08/29/24 10:00 08/31/24 10:08 40 MG Metoprolol Tartrate 2.5 mg Q6HR IV 08/29/24 12:00 Hold 08/30/24 12:02 2.5 MG Metoprolol Tartrate 2.5 mg Q6HR IV 08/29/24 12:00 UNV Enoxaparin Sodium 30 mg DAILY SC 08/29/24 10:00 Hydromorphone HCl 1 mg Q3HPRN PRN IV 08/29/24 07:00 08/30/24 08:11 1 MG Diagnostic Test (Pha) 1 strip IQ4HR 08/29/24 16:00 09/01/24 08:11 1 STRIP Insulin Human Regular IQ4HR SC 08/29/24 16:00 09/01/24 08:20 6 UNITS Dextrose 50 ml UD PRN IV 08/29/24 14:15 08/31/24 16:07 50 ML Midazolam HCl 50 ml @ 1 mls/hr Q24H IV 08/30/24 11:00 08/31/24 02:56 1 MLS/HR Fentanyl Citrate 250 ml @ 2.5 mls/hr Q24H IV 08/30/24 11:00 Epinephrine HCl 250 ml @ 7.5 mls/hr Q24H IV 08/30/24 15:00 08/31/24 23:00 37.5 MLS/HR Vasopressin 20 units/Sodium Chloride 100 ml @ 3 mls/hr Q24H IV 08/30/24 18:45 09/01/24 02:00 9 MLS/HR Amiodarone HCl 250 ml @ 16.667 mls/ hr Q15H IV 08/31/24 16:45 Piperacillin Sod/ Tazobactam Sod 100 ml @ 25 mls/hr Q12H IV 08/31/24 17:00 09/01/24 05:12 25 MLS/HR Phenylephrine HCl 80 mg/Sodium Chloride 250 ml @ 7.5 mls/hr Q24H IV 08/31/24 14:15 08/31/24 23:15 33.75 MLS/HR Norepinephrine Bitartrate 32 mg/ Sodium Chloride 250 ml @ 0.938 mls/ hr Q24H IV 08/31/24 15:00 09/01/24 08:13 14.063 MLS/HR Dopamine HCl/ Dextrose 250 ml @ 12.356 mls/ hr [id number] IV 08/31/24 18:30 09/01/24 02:00 49.425 MLS/HR Sodium Bicarbonate 150 ml/Dextrose 1,150 ml @ 100 mls/hr [id number] IV 08/31/24 18:30 Hydrocortisone Sodium Succinate 100 mg Q8HR IV 08/31/24 22:00 09/01/24 05:13 100 MG Sodium Bicarbonate 150 ml/Dextrose 1,150 ml @ 150 mls/hr Q7H40M IV 08/31/24 19:30 09/01/24 08:12 150 MLS/HR Fentanyl Citrate 250 ml @ 2.5 mls/hr Q24H IV 09/01/24 10:45 Fluconazole 100 ml @ 100 mls/hr Q1HR IV 09/01/24 11:00 09/01/24 12:59 UNV Laboratory Results Laboratory Tests 09/01/24 04:50 Chemistry Test 08/31/24 16:33 09/01/24 04:50 Albumin 1.9 g/dL (3.2-4.8) L Calcium Level 7.2 mg/dL (8.7-10.4) L Pending Magnesium Level 2.4 mg/dL (1.6-2.6) Phosphorus Level 13.5 mg/dL (2.4-5.1) H Total Protein 3.0 g/dL (5.7-8.2) L LFT Test 08/31/24 16:33 Alanine Aminotransferase (ALT) > 6000 U/L (7-40) H Alkaline Phosphatase 113 U/L (46-116) Aspartate Amino Transferase (AST) > 6000 U/L (13-40) H Total Bilirubin 1.3 mg/dL (0.2-1.0) H Urinalysis Test 08/30/24 17:46 Urine Color Light-orange (Yellow) Urine Clarity Ex.turbid (Clear) Urine pH 5.5 (5.0-9.0) Urine Specific [place] 1.021 (1.001-1.035) Urine Protein 2+ (Negative) H Urine Ketones Trace (Negative) Urine Blood 2+ /uL (Negative) H Urine Nitrite Negative (Negative) Urine Bilirubin Negative (Negative) Urine Urobilinogen Normal mg/dL (Negative) Urine Leukocyte Esterase Negative /uL (Negative) Urine RBC 13 /hpf (0 - 4) Urine WBC 10 /hpf (0 - 5) Urine Squamous Epithelial Cells Few /hpf (<5) Urine Bacteria None seen /hpf (None Seen) Urine Glucose Trace mg/dL (Normal) Blood Gas Results Test 08/31/24 16:25 09/01/24 08:08 Arterial Blood pH 6.964 (7.350-7.450) 7.076 (7.350-7.450) FiO2 % 100.0 35.0 Microbiology Microbiology Date/Time Source Procedure Growth Status 08/30/24 10:19 Sputum Gram Stain - Final Resulted 08/30/24 10:19 Respiratory Culture - Preliminary Presumptive Milli albicans Resulted 08/29/24 18:35 Nose MRSA Screen - Final Complete 08/29/24 14:09 Blood Blood Culture - Preliminary NO GROWTH AFTER 48 HOURS OF INCUBATION. Resulted Labs and/or images reviewed: Labs reviewed by me, Image(s) reviewed by me Assessment/Plan Assessment/Plan Acute hypoxic respiratory failure status post intubated in [place], on 40 % FiO2 Dr. Graff following, continue pressors and sedation Acute metabolic acidosis: Bicarb drip Septic shock with elevated white count 39 [address] consult for ID Dr. Escobar Yeast in the sputum: Diflucan Possible overdose on narcotics: Patient probably overdosed on Silas and Ativan in the bathroom and coded around 10 AM on 08/30/2024 2 dose of Narcan 2 mg each was given IV and patient came back to consciousness, patient has full bag of narcotics and Ativan with her at the bedside Amphetamine abuse: Urine drug screen positive for amphetamine Septic shock possibly secondary to [place] [address]: Blood cultures ordered, on Zosyn, surgical consult [place] [address]: Seen by truck and transport mechanic Dr. Quinteros Takotsubo syndrome by left heart catheterization by Dr. Quinteros on 08/29/2024, normal coronaries Type 2 diabetes Hypertension Shock liver with elevated AST and ALT: Consult for GI Dr. Galdino Zafar Acute kidney injury with elevated BUN and creatinine: Consult for Unequal pupils: Consult by Neurology Dr. Bautista appreciated CT head negative Cardiomyopathy with ejection fraction 28 percent possibly secondary to drug abuse Time Spent 70 minutes Advanced care planning time 20 minutes Patient is full code GI prophylaxis: Pantoprazole DVT prophylaxis SCDs Condition critical Patient's niece Sarah [phone] called and made the patient DNR Code status DNR Plan discussed with: Patient My Orders Orders - JAYLEEN WATSON MD Procedure Category Date Status Time Chest Portable XY 09/01/24 Resulted 04:00 Basic Metabolic Panel LAB 09/01/24 Logged 04:00 Complete Blood Count LAB 09/01/24 In Process 04:00 Manual Differential LAB 09/01/24 In Process 04:50 Fluconazole PHA 09/01/24 Logged 200mg/100ml (Diflucan 11:00 * Infectious Omar- DrRd CONS 09/01/24 Verified Anam Escobar 10:45 Date of Service: Sep 01, 2024 Billing Provider: JAYLEEN WATSON MD Common Visit Codes: 96179-GDBPVROG CARE 30-74 MIN JAYLEEN WATSON MD Sep 01, 2024 10:48
[2024-09-01 11:48] LABS: Band Neutrophils % (manual) 44; Lymphocytes % (manual) 13 (10.0-50.0); Metamyelocytes % 3; Monocytes % (manual) 9 (0-12)
[2024-09-01 11:49] LABS: Platelet Estimate Adequate
[2024-09-01] MEDS: FLUCONAZOLE 200MG/100ML 100 ML IV SCH (11:56)
--- NOTE | 2024-09-01 14:51 | DVHPN2 ---
Progress Note - Dictate Date Seen: Sep 01, 2024 Medical Necessity Reason Pt with a Central, PICC or Fol: Yes The following are medically ne: Central Line, Tavera Catheter Reason for tavera catheter: Strict I&O Subjective Ms. Simms is a 59 years old female with a history of hypertension, diabetes, the patient was transferred from the [facility] on 08/29/2024 for diagnosed STEMI and increased umbilical herniation I have seen and examined the patient, I have talked to her nieces, and her nurse. According to her nieces, they were her family. They understand the patient was poor prognosis for meaningful/over recovery, and they decide comfort care only She was nonresponsive to any stimuli, pupils are dilated and fixed, no brainstem reflexes She was intubated, on five pressor drips for unstable vitals UDS, 08/30/2024: Amphetamines Urinalysis 0 08/30/2024: WBC: 10, urine leukocyte esterase: Negative CBC, 08/30/2020: Metabolic acidosis, 08/31/2024: Metabolic acidosis, 08/29/2024: Metabolic acidosis WBC/HB/PLT/MCV, 08/30/2024: 23.4/14.1/386/93.4, : 31.9/47/201/90.9 PT/INR/PTT, 08/30/2024: 15.6/1.52/41.5 D-dimer, 08/30/2024: 17.76 BUN/CR, 08/30/2024: 48/2.43, on 08/31/2024: 57/3.74 Anion gap, 08/31/2024: 29 HCO3, 08/29/2024: 17, 08/30/2024: 10 HGB A1c, 08/30/2024: 507 Troponin one high sensitivity, 08/29/2024: 37109, 08/30/2024: > 89581 TBI/AST/ALT/AP, 08/30/2024: 0.7/100/54/64, : 1.3/>6000/>6000/113 her TG/HDL/LDL/HDL, 08/29/2024: 95/153/67/66 TSH, 08/29/2024: 0.89 Chest X-ray, 08/30/2024: Retract endotracheal tube by [address] head, 08/30/2024: 1. No acute intracranial hemorrhage. 2. No CT findings of displaced skull fracture 3. Findings territorial ischemia vital signs Vital Sign Date Time Temp Pulse Resp B/P (MAP) Pulse Ox O2 Delivery O2 Flow Rate FiO2 09/01/24 14:18 115/45 09/01/24 14:02 30 Mechanical Ventilator+ 35 35 09/01/24 14:02 65 09/01/24 14:00 98.1 208.6 09/01/24 11:00 67 09/01/24 08:00 0 Total Intake and Output 08/31/24 08/31/24 09/01/24 15:00 23:00 07:00 Intake Total 2923.50 ml 2054.263 ml 2165.975 ml Output Total 30 ml 20 ml Balance 2923.50 ml 2024.263 ml 2145.975 ml medications Current Medications Medications Dose Ordered Sig/Wayne Route Start Time Stop Time Status Last Admin Dose Admin Nitroglycerin 0.4 mg Q5MINP PRN SL 08/29/24 06:00 08/30/24 04:34 0.4 MG Morphine Sulfate 2 mg Q30M PRN IV 08/29/24 06:00 Ondansetron HCl 4 mg Q4HPRN PRN IV 08/29/24 06:00 Pantoprazole Sodium 40 mg DAILY IV 08/29/24 10:00 09/01/24 11:55 40 MG Metoprolol Tartrate 2.5 mg Q6HR IV 08/29/24 12:00 Hold 08/30/24 12:02 2.5 MG Metoprolol Tartrate 2.5 mg Q6HR IV 08/29/24 12:00 UNV Enoxaparin Sodium 30 mg DAILY SC 08/29/24 10:00 09/01/24 11:56 30 MG Hydromorphone HCl 1 mg Q3HPRN PRN IV 08/29/24 07:00 08/30/24 08:11 1 MG Diagnostic Test (Pha) 1 strip IQ4HR 08/29/24 16:00 09/01/24 12:19 1 STRIP Insulin Human Regular IQ4HR SC 08/29/24 16:00 09/01/24 08:20 6 UNITS Dextrose 50 ml UD PRN IV 08/29/24 14:15 08/31/24 16:07 50 ML Midazolam HCl 50 ml @ 1 mls/hr Q24H IV 08/30/24 11:00 08/31/24 02:56 1 MLS/HR Epinephrine HCl 250 ml @ 7.5 mls/hr Q24H IV 08/30/24 15:00 09/01/24 12:00 37.5 MLS/HR Vasopressin 20 units/Sodium Chloride 100 ml @ 3 mls/hr Q24H IV 08/30/24 18:45 09/01/24 02:00 9 MLS/HR Amiodarone HCl 250 ml @ 16.667 mls/ hr Q15H IV 08/31/24 16:45 Piperacillin Sod/ Tazobactam Sod 100 ml @ 25 mls/hr Q12H IV 08/31/24 17:00 09/01/24 05:12 25 MLS/HR Phenylephrine HCl 80 mg/Sodium Chloride 250 ml @ 7.5 mls/hr Q24H IV 08/31/24 14:15 08/31/24 23:15 33.75 MLS/HR Norepinephrine Bitartrate 32 mg/ Sodium Chloride 250 ml @ 0.938 mls/ hr Q24H IV 08/31/24 15:00 09/01/24 08:13 14.063 MLS/HR Dopamine HCl/ Dextrose 250 ml @ 12.356 mls/ hr [id number] IV 08/31/24 18:30 09/01/24 14:18 49.425 MLS/HR Hydrocortisone Sodium Succinate 100 mg Q8HR IV 08/31/24 22:00 09/01/24 05:13 100 MG Sodium Bicarbonate 150 ml/Dextrose 1,150 ml @ 150 mls/hr Q7H40M IV 08/31/24 19:30 09/01/24 08:12 150 MLS/HR objective The patient is well-nourished and well-developed with no distress. The patient is intubated MENTAL STATUS: Not responsive to strong painful stimuli CRANIAL NERVES: Pupils are dilated and fixed.There are no corneal reflexes and no doll's eyes phenomenon. No signs of facial weakness. There are no gagging or coughing reflexes SENSATION: No responses to pain stimuli. MOTOR: Normal tone in the upper and lower extremity. Normal muscle bulk. No fasciculations. No spontaneous movement. REFLEXES: Deep tendon reflexes are symmetrical. No pathological reflexes. CEREBELLAR/COORDINATION: Deferred GAIT/STATION: deferred. laboratory and microbiology Laboratory Tests 09/01/24 04:50 08/31/24 16:33 Test 08/31/24 16:33 Range/Units Serum Glucose 262 H 74-106 mg/dL Problem List Dilated and unequal pupils Severe hypoxic brain injury Brain herniation Acute mental status changes ? Medication overdose Hypoxic encephalopathy Toxic encephalopathy Acute heart attack Leukocytosis Sepsis Assessment/Plan Monitoring Supportive treatment ICU care Blood culture EEG CT head IV antibiotics Cardiology on case More recommendation per clinical course I agree comfort care only on her This medical document was created using an electronic medical record system with [employer] computerized dictation system. Although this document has been carefully reviewed, there may still be some phonetic and typographical errors. These areas are purely typographical due to imperfections of the software programs, and do not reflect any compromise in the patient's medical care Prognosis guarded Plan discussed with: Other Critical Care Time(min): 35 NELLY BIGGS MD Sep 01, 2024 14:51
[2024-09-01] MEDS ORDERED: LORazepam 2MG/ML-1ML VIAL IV PRN (15:15)
[2024-09-01] MEDS: MORPHINE SULFATE INJ 2 MG/ml SYRG IV PRN (15:22)
--- NOTE | 2024-09-01 16:16 | PRN ---
Misceleneous Note Note Note Patient seen and pronounced at 1529 on 09/01/2024. Patient was unresponsive to painful stimuli. Heart and lung sounds were absent. No spontaneous cardiac or respiratory activity was present. Patient was not responding to verbal or painful stimuli. No corneal pupillary reflex was present. Pupils were fixed and dilated. JAYMIE RODRIGUEZ RESIDENT JAYMIE ALAMO MD Sep 01, 2024 16:16
--- NOTE | 2024-09-01 23:21 | DVHPN2 ---
Progress Note - Dictate Date Seen: Sep 01, 2024 Medical Necessity Reason Pt with a Central, PICC or Fol: Yes The following are medically ne: Central Line, Tavera Catheter Reason for tavera catheter: Strict I&O Subjective Patient seen and examined at bedside. Sedated, intubated on mechanical ventilator. Overnight events reviewed. vital signs Vital Sign Date Time Temp Pulse Resp B/P (MAP) Pulse Ox O2 Delivery O2 Flow Rate FiO2 09/01/24 16:00 97.9 0 208.2 09/01/24 15:30 46 09/01/24 14:15 83 09/01/24 14:02 Mechanical Ventilator+ 35 35 09/01/24 08:00 0 Total Intake and Output 08/31/24 08/31/24 09/01/24 15:00 23:00 07:00 Intake Total 2923.50 ml 2054.263 ml 2459.225 ml Output Total 30 ml 20 ml Balance 2923.50 ml 2024.263 ml 2439.225 ml medications Current Medications Medications Dose Ordered Sig/Wayne Route Start Time Stop Time Status Last Admin Dose Admin Metoprolol Tartrate 2.5 mg Q6HR IV 08/29/24 12:00 UNV objective Gen.: Patient lying in bed in medical ICU. Sedated, intubated on mechanical ventilator. Head: Normocephalic, atraumatic. Eyes: PERRLA. Ears: Normal external anatomy. Throat: Endotracheal tube and orogastric tube in place. Neck: Supple, trachea midline. Chest: Transmitted breath sounds bilaterally. Decreased air entry bilaterally. No wheezing. Bibasilar crackles. Cardiovascular: Positive S1, positive S2. Regular rate and rhythm. Abdomen: Positive bowel sounds in all 4 quadrants. Soft, nontender, nondistended. : Tavera in place. Normal external genitalia. Rectal: Deferred. Skin: Warm, dry. Intact. Extremities: 2+ radial pulses bilaterally. No lower extremity edema. Neuro: Sedated. laboratory and microbiology Laboratory Tests 09/01/24 04:50 08/31/24 16:33 Test 08/31/24 16:33 Range/Units Serum Glucose 262 H 74-106 mg/dL Assessment/Plan Impression: Acute hypoxic respiratory failure On mechanical ventilator Non-ST elevation myocardial infarction Substance abuse Acute metabolic encephalopathy Events: Remains on vent support Vent settings; A/C mode with RR 30, VT 500, PEEP 8, FiO2 35% Patient is maxed on pressors for hemodynamic support On dopamine 20 mcg/min, Levophed 30 mcg/min, vasopressin 0.03 units/min, Nilson- synephrine 180 mcg/min, epinephrine 10 mcg/min Titrate to keep MAP above 65 mmHg/SBP above 90 mmHg. Off sedation ABG reviewed, notable for acidemia. Severe metabolic + lactic acidosis On bicarb drip w/ 3 amps at 150 ml/hr. Continue antibiotics/antifungals Stress dose steroids Off amiodarone drip. Multiorgan failure Overall poor prognosis - high likelihood of demise. Labs and imaging reviewed. Rest of plan as noted below. Plan: s/p intubation on mechanical ventilator ABG reviewed, notable for acidemia. Vent settings; A/C mode with RR 30, VT 500, PEEP 8, FiO2 35% Titrate FIO2 to keep O2 saturation above 92%. VAP bundle Daily ABG and CXR while intubated. Off sedation On multiple pressors for hemodynamic support. Titrate to keep MAP above 65 mmHg/SBP above 90 mmHg. Continue antibiotics. F/u cultures. Monitor renal function due to Acute kidney injury. Monitor electrolytes. Supplement as necessary. Monitor ins and outs Nutritional support. Accu-Cheks, ISS. GI/DVT prophylaxis. Condition: Critical Prognosis: Poor given multiple comorbidities. Rest of plan per hospitalist and other consultants. A total of 35 minutes of critical care time was spent reviewing the patient record, examining the patient, making a diagnostic and therapeutic plan, discussing this plan with the medical personnel, following up on diagnostic studies and following the patient for clinical stability excluding any and all procedures. At least 50% of this time was spent in direct, toly-bu-aatn contact. Thank you, Dr. Marie, for allowing me to participate in this patient's care. Further recommendations will depend on patient's clinical course. Please do not hesitate to contact me if you have any questions or concerns. This medical document was created using an electronic medical record system with [employer] system. Although this document has been carefully reviewed, there may still be some phonetic and typographical errors. These areas are purely typographical due to imperfections of the software programs, and do not reflect any compromise in the patient's medical care. Dietary Evaluation Review Comments: 1. If GI acessible, PO not an option, Pivot@40ml/hr (79g protein, 1260 Kcal) supporting pt's needs at 71% pro, 127% kcal. 2. If NPO> 7 days, offer TPN per pharmacy 3. If pt pass speech eval, off vent offer a 2gNA cardiac 3K low fat Lo cholesterol diet combined with a renal specific -60g restriction Expected Outcomes/Goals: controlled T2DM, controlled uremic sympromes, gradual weight loss Plan discussed with: Other (STEFFEN Doll) Critical Care Time(min): 35 MARGA JONES MD Sep 01, 2024 23:21
--- NOTE | 2024-09-01 23:38 | DVHPN2 ---
Progress Note - Dictate Date Seen: Sep 01, 2024 Medical Necessity Reason Pt with a Central, PICC or Fol: Yes The following are medically ne: Central Line, Tavera Catheter Reason for tavera catheter: Strict I&O Subjective Patient was seen and evaluated in follow up in the ICU this afternoon. Patient is intubated on ventilator. 35% FiO2. Surgeon seen patent and advised that patients hernias easily reducible, no indication for emergency surgical intervention. Patient was compassionately extubated per family requested. Patient started on comfort measures. vital signs Vital Sign Date Time Temp Pulse Resp B/P (MAP) Pulse Ox O2 Delivery O2 Flow Rate FiO2 09/01/24 16:00 97.9 0 208.2 09/01/24 15:30 46 09/01/24 14:15 83 09/01/24 14:02 Mechanical Ventilator+ 35 35 09/01/24 08:00 0 Total Intake and Output 08/31/24 08/31/24 09/01/24 15:00 23:00 07:00 Intake Total 2923.50 ml 2054.263 ml 2459.225 ml Output Total 30 ml 20 ml Balance 2923.50 ml 2024.263 ml 2439.225 ml medications Current Medications Medications Dose Ordered Sig/Wayne Route Start Time Stop Time Status Last Admin Dose Admin Metoprolol Tartrate 2.5 mg Q6HR IV 08/29/24 12:00 UNV objective GENERAL: Unresponsive. LUNGS: Decreased breath sounds. CARDIOVASCULAR: Tachycardia. ABDOMEN: Soft. Slight distention noted. laboratory and microbiology Laboratory Tests 09/01/24 04:50 08/31/24 16:33 Test 08/31/24 16:33 Range/Units Serum Glucose 262 H 74-106 mg/dL Problem List Acute ST elevation. Acute pericarditis versus methamphetamine use coronary spasm. Incarcerated hernia. Respiratory failure due to self induced drug overdose. Takotsubo syndrome. Cardiomyopathy. Acute metabolic acidosis. Amphetamine abuse. Septic shock possibly secondary to incarcerated umbilical hernia. Assessment/Plan Continued all current supportive medical care. DVT and GI prophylactics. Dilaudid for pain management. Metoprolol. Vasopressors for hemodynamic support. IV antibiotics as ordered. Additional plan as per the hospital course. Critical care time of 45 minutes provided to include time spent evaluation of patient at bedside, when appropriate patient/family education for diagnosis, treatment plan, review of pertinent medical information and discussion of care with specialty providers and PCP. Dietary Evaluation Review Comments: 1. If GI acessible, PO not an option, Pivot@40ml/hr (79g protein, 1260 Kcal) supporting pt's needs at 71% pro, 127% kcal. 2. If NPO> 7 days, offer TPN per pharmacy 3. If pt pass speech eval, off vent offer a 2gNA cardiac 3K low fat Lo cholesterol diet combined with a renal specific -60g restriction Expected Outcomes/Goals: controlled T2DM, controlled uremic sympromes, gradual weight loss Plan discussed with: Other SRI SNEED MD Sep 01, 2024 23:38
--- NOTE | 2024-09-02 09:22 | DVHDS2 ---
Summary Date of Admission Aug 29, 2024 at 05:51 Date and Time of Expiration: Sep 01, 2024 15:39 Reason for Admission: Chest pain Wounds: Left heart catheterization Endotracheal intubation Labs/Diagnostic Data: Laboratory Results Test 09/01/24 12:06 09/01/24 08:08 09/01/24 04:50 08/31/24 16:33 POC Glucose 122 mg/dl (70-106) Blood Gas Specimen Type Arterial Blood Gas Sample Site Arterial line Blood Gas Patient Temperature 37.0 Arterial Blood Date Drawn [id number] Arterial Blood pH 7.076 (7.350-7.450) Arterial Blood Partial Pressure CO2 23.4 mmHg (32.0-45.0) Arterial Blood Partial Pressure O2 90.3 mmHg (83.0-108.0) Arterial Blood HCO3 6.7 mmol/L (21.0-28.0) Arterial Blood Oxygen Saturation 92.9 % (94.0-98.0) Arterial Blood Base Excess -21.7 mmol/L (-2.0-3.0) Arterial Blood Oxyhemoglobin 92.1 % (94.0-98.0) Arterial Blood Carboxyhemoglobin 0.3 % (0.5-1.5) Arterial Blood Methemoglobin 0.6 % (0.0-1.5) Johnny Test N/a Blood Gas Total Hemoglobin 10.00 g/dL (12.0-16.0) Blood Gas Set Respiration Rate 30.0 Blood Gas Modality Vent - ac FiO2 % 35.0 Blood Gas Tidal Volume 500.0 Blood Gas PEEP or CPAP 8.0 Specimen Drawn By Blood Gas Critical Value Read Back Yes Blood Gas Notified Whom Dr. surya ramirez Blood Gas Notified Time [id number] Blood Gas Notified By White Blood Count 31.9 10^3/uL (4.4-10.8) Red Blood Count 3.45 10^6/uL (4.0-5.20) Hemoglobin 9.7 g/dL (12.2-16.2) Hematocrit 31.3 % (36.0-46.0) Mean Corpuscular Volume 90.9 fL (80.0-100.0) Mean Corpuscular Hemoglobin 28.1 pg (28.0-32.0) Mean Corpuscular Hemoglobin Concent 30.9 g/dL (32.0-36.0) Red Cell Distribution Width 15.8 % (11.8-14.3) Platelet Count 201 10^3/uL (140-450) Mean Platelet Volume 9.6 fL (6.9-10.8) Neutrophils (%) (Auto) % (37.0-80.0) Lymphocytes (%) (Auto) % (10.0-50.0) Monocytes (%) (Auto) % (0.0-12.0) Basophils (%) (Auto) % (0.0-2.0) Neutrophils # (Auto) 10 ^3/uL (1.6-8.6) Lymphocytes # (Auto) 10 ^3/uL (0.4-5.4) Monocytes # (Auto) 10 ^3/uL (0-1.3) Differential Total Cells Counted 100.0 (100) Neutrophils % (Manual) 31 (37.0-80.0) Band Neutrophils % (Manual) 44 Lymphocytes % (Manual) 13 (10.0-50.0) Monocytes % (Manual) 9 (0-12) Eosinophils % (Manual) 0 (0-7) Basophils % (Manual) 0 (0.0-2.0) Metamyelocytes % (manual) 3 Myelocytes % (Manual) 0 Promyelocytes % (Manual) 0 Blast Cells % (Manual) 0 Nucleated Red Blood Cells 1.0 % Reactive Lymphocytes 0 Platelet Estimate Adequate Sodium Level 136 mmol/L (136-145) Potassium Level 5.0 mmol/L (3.5-5.1) Chloride Level 97 mmol/L (98-107) Carbon Dioxide Level < 10 mmol/L (20-31) Anion Gap 29.16228 (5-15) Blood Urea Nitrogen 57 mg/dL (9-23) Creatinine 3.74 mg/dL (0.550-1.02) Glomerular Filtration Rate Calc 13 mL/min (>90) BUN/Creatinine Ratio 15.2 (10.0-20.0) Serum Glucose 262 mg/dL (74-106) Calcium Level 7.2 mg/dL (8.7-10.4) Phosphorus Level 13.5 mg/dL (2.4-5.1) Magnesium Level 2.4 mg/dL (1.6-2.6) Total Bilirubin 1.3 mg/dL (0.2-1.0) Aspartate Amino Transferase (AST) > 6000 U/L (13-40) Alanine Aminotransferase (ALT) > 6000 U/L (7-40) Alkaline Phosphatase 113 U/L (46-116) Total Protein 3.0 g/dL (5.7-8.2) Albumin 1.9 g/dL (3.2-4.8) Test 08/31/24 01:56 08/30/24 22:56 08/30/24 22:20 08/30/24 21:07 Triglycerides Level 119 mg/dL (< 150) Cholesterol Level < 50.0 mg/dL (< 200) LDL Cholesterol 16 mg/dL (< 100) HDL Cholesterol 18 mg/dL (40-59) Lactic Acid Level 10.3 mmol/L (0.4-2.0) Urine Opiates Screen Neg (NEGATIVE) Urine Fentanyl Screen Neg (NEGATIVE) Urine Barbiturates Screen Neg (NEGATIVE) Urine Phencyclidine Screen Neg (NEGATIVE) Urine Amphetamines Screen Pos (NEGATIVE) Urine Benzodiazepines Screen Neg (NEGATIVE) Urine Cocaine Screen Neg (NEGATIVE) Urine Cannabinoids Screen Neg (NEGATIVE) Blood Gas Spontaneous Rate 30 Test 08/30/24 17:46 08/30/24 10:30 08/29/24 10:00 08/29/24 05:30 Urine Color Light-orange (Yellow) Urine Clarity Ex.turbid (Clear) Urine pH 5.5 (5.0-9.0) Urine Specific [place] 1.021 (1.001-1.035) Urine Protein 2+ (Negative) Urine Ketones Trace (Negative) Urine Blood 2+ /uL (Negative) Urine Nitrite Negative (Negative) Urine Bilirubin Negative (Negative) Urine Urobilinogen Normal mg/dL (Negative) Urine Leukocyte Esterase Negative /uL (Negative) Urine RBC 13 /hpf (0 - 4) Urine WBC 10 /hpf (0 - 5) Urine Squamous Epithelial Cells Few /hpf (<5) Urine Bacteria None seen /hpf (None Seen) Urine Glucose Trace mg/dL (Normal) Eosinophils (%) (Auto) 0.0 % (0.0-7.0) Eosinophils # (Auto) 0 10 ^3/uL (0-0.8) Basophils # (Auto) 0 10 ^3/uL (0-0.2) Prothrombin Time 15.6 sec (9.3-11.8) Prothrombin Time INR 1.52 (0.9-1.15) Activated Partial Thromboplast Time 41.6 SEC (24.5-34.5) D-Dimer, Quantitative 17.76 mg/L FEU (0.0-0.49) Hemoglobin A1c 5.7 % A1C (<5.7) Troponin I High Sensitivity > 23637 ng/L (</=34) B-Type Natriuretic Peptide > 5000.00 pg/mL (0-100) Influenza Type A Antigen Negative (Negative) Influenza Type B Antigen Negative (Negative) SARS-CoV-2 Antigen (Rapid) Negative (NEGATIVE) Erythrocyte Sedimentation Rate 1 mm/hr (0-20) C-Reactive Protein High Sensitivity 7.63 mg/dL (<1.0) Thyroid Stimulating Hormone (TSH) 0.89 uIU/mL (0.55-4.78) Other Laboratory Tests 09/01/24 04:50 08/31/24 16:33 Brief Hx & Hospital Course: 59-year-old female with a history of hypertension diabetes amphetamine abuse came in for chest pain and shortness of breath. Patient [place] [address]. patient underwent left heart catheterization by Dr. Quinteros and found to have normal coronaries and takotsubo syndrome. While on the floor the patient coded intubated central line placed moved to [place]. Patient had septic shock possibly secondary to incarcerated [place] [address] placed on Zosyn blood cultures ordered surgical consult by Dr. Vicente. Not a candidate for surgery because of unstable clinical condition patient had a full bag of narcotics and possibly overdosed on Ativan and Redfield in the restroom while in the floor and she collapsed and got intubated. Found to have yeast in the sputum started on Diflucan ID consult by Dr. Castellon patient was also seen by lead solutions architect for acute metabolic acidosis and acute kidney injury patient was also seen by neurologist Dr. Bautista for unequal pupils CT head was negative patient has cardiomyopathy ejection fraction 28 percent possible to drug abuse Patient was made DNR by her niece Sarah. In spite of best efforts by various specialists the patient at 3:39 p.m. on 09/01/2024. Cause of : Acute hypoxic respiratory failure Septic shock Severe cardiomyopathy with the ejection fraction 28 percent Takotsubo syndrome Chronic current polysubstance abuse Consults/Reason for consult Cardiology Dr. Quinteros Pulmonology Dr. Ramirez GI Operations or Procedures Left heart catheterization Central line placement Endotracheal intubation Final Diagnosis/Problems List Acute hypoxic respiratory failure status post intubated in [place], on 40 % FiO2 Dr. Ramirez following, continue pressors and sedation Acute metabolic acidosis: Bicarb drip Septic shock with elevated white count 39 [address] consult for ID Dr. Escobar Yeast in the sputum: Diflucan Possible overdose on narcotics: Patient probably overdosed on [place]field and Ativan in the bathroom and coded around 10 AM on 08/30/2024 2 dose of Narcan 2 mg each was given IV and patient came back to consciousness, patient has full bag of narcotics and Ativan with her at the bedside Amphetamine abuse: Urine drug screen positive for amphetamine Septic shock possibly secondary to incarcerated [place] [address]: Blood cultures ordered, on Zosyn, surgical consult appreciated [place] [address]: Seen by form setter steel pan forms Dr. Quinteros Takotsubo syndrome by left heart catheterization by Dr. Quinteros on 08/29/2024, normal coronaries Type 2 diabetes Hypertension Shock liver with elevated AST and ALT: Consult for GI Dr. Galdino Zafar Acute kidney injury with elevated BUN and creatinine: Consult for Unequal pupils: Consult by Neurology Dr. Bautista appreciated CT head negative Cardiomyopathy with ejection fraction 28 percent possibly secondary to drug abuse Discharge Disposition: at Hospital JAYLEEN WATSON MD Sep 02, 2024 09:22
[2024-09-02 13:06] LABS: Anti-Centromere B Antibody <0.2 AI (0.0-0.9); Anti-Jo-1 Antibody <0.2 AI (0.0-0.9); Anti-dsDNA Antibody 1 IU/mL (0-9); Antichromatin Antibody 0.3 AI (0.0-0.9); Antiscleroderma-70 Antibody <0.2 AI (0.0-0.9); RNP Antibody 0.6 AI (0.0-0.9); Sjogren's Anti-SS-A Antibody <0.2 AI (0.0-0.9); Sjogren's Anti-SS-B Antibody <0.2 AI (0.0-0.9); Smith Antibody <0.2 AI (0.0-0.9)
== END 2024-09-01 16:35 | DRG 720 ==
LOC: EDBD 05:09 → ER 05:09 → TELE 05:51 → CATH ICU 06:43 → TELE-WESTW 15:32 → ICU CENTRL 08-30 12:27
PROVIDERS: ADMIT Internal Medicine Pulmonary Disease; ATTEND Family Medicine
PROC: B211YZZ Fluoroscopy of Multiple Coronary Arteries using Other Contrast (ICD-10-PCS; principal; 2024-08-29)
PROC: B215YZZ Fluoroscopy of Left Heart using Other Contrast (ICD-10-PCS; 2024-08-29)
PROC: 4A023N7 Measurement of Cardiac Sampling and Pressure, Left Heart, Percutaneous Approach (ICD-10-PCS; 2024-08-29)
PROC: 04HY32Z Insertion of Monitoring Device into Lower Artery, Percutaneous Approach (ICD-10-PCS; 2024-08-29)
PROC: B41FYZZ Fluoroscopy of Right Lower Extremity Arteries using Other Contrast (ICD-10-PCS; 2024-08-29)
PROC: 5A1945Z Respiratory Ventilation, 24-96 Consecutive Hours (ICD-10-PCS; 2024-08-30)
PROC: 03HY32Z Insertion of Monitoring Device into Upper Artery, Percutaneous Approach (ICD-10-PCS; 2024-08-30)
PROC: 02HV33Z Insertion of Infusion Device into Superior Vena Cava, Percutaneous Approach (ICD-10-PCS; 2024-08-30)
PROC: 0BH17EZ Insertion of Endotracheal Airway into Trachea, Via Natural or Artificial Opening (ICD-10-PCS; 2024-08-30)
DX: A41.9 Sepsis, unspecified organism (principal); J96.21 Acute and chronic respiratory failure with hypoxia; K72.00 Acute and subacute hepatic failure without coma; R57.0 Cardiogenic shock; R65.21 Severe sepsis with septic shock; I21.3 ST elevation (STEMI) myocardial infarction of unspecified site; G92.8 Other toxic encephalopathy; K42.0 Umbilical hernia with obstruction, without gangrene; E83.51 Hypocalcemia; E87.21 Acute metabolic acidosis; N17.9 Acute kidney failure, unspecified; E87.6 Hypokalemia; Z20.822 Contact with and (suspected) exposure to COVID-19; E83.42 Hypomagnesemia; Z66 Do not resuscitate; E11.649 Type 2 diabetes mellitus with hypoglycemia without coma; F15.10 Other stimulant abuse, uncomplicated; E66.9 Obesity, unspecified; G93.5 Compression of brain; G93.1 Anoxic brain damage, not elsewhere classified; I12.9 Hypertensive chronic kidney disease with stage 1 through stage 4 chronic kidney disease, or unspecified chronic kidney disease; E11.22 Type 2 diabetes mellitus with diabetic chronic kidney disease; N18.9 Chronic kidney disease, unspecified; T42.4X1A Poisoning by benzodiazepines, accidental (unintentional), initial encounter; I51.81 Takotsubo syndrome; T40.601A Poisoning by unspecified narcotics, accidental (unintentional), initial encounter; Y92.89 Other specified places as the place of occurrence of the external cause; I25.2 Old myocardial infarction; Z98.61 Coronary angioplasty status; Z87.891 Personal history of nicotine dependence; Z68.35 Body mass index [BMI] 35.0-35.9, adult
CPT/HCPCS: 36415; 36556; 36600; 70450; 71045; 74250; 75710; 80053; 80061; 80307; 81001; 82805; 82962; 83036; 83516; 83605; 83735; 83880; 84100; 84443; 84484; 85007; 85025; 85027; 85379; 85610; 85652; 85730; 86141; 86225; 86235; 87040; 87070; 87077; 87081; 87086; 87088; 87205; 87426; 87804; 93005; 93306; 93458; 94002; 94003; 99152; G0378; J0171; J0330; J1450; J1815; J2250; J2470; J2543; J3480; Q9967